=== PATIENT | female | born 1990 | race Caucasian/White ===

== ENCOUNTER → 2017-12-14 08:06 | Outpatient (CLI) | payer OTHER, SELFPAY ==
[2017-12-14 09:06] LABS: hCG Titer Quant., Serum 4843 mIU/mL (<9 non-preg)
== END ==
PROVIDERS: Visit Provider Obstetrics & Gynecology
DX: Z32.01 Encounter for pregnancy test, result positive (principal)
CPT/HCPCS: 36415; 84702

== ENCOUNTER → 2017-12-16 07:35 | Outpatient (CLI) | payer OTHER, SELFPAY ==
[2017-12-16 09:22] LABS: hCG Titer Quant., Serum 6056 mIU/mL (<9 non-preg)
== END ==
PROVIDERS: Visit Provider Obstetrics & Gynecology
DX: Z32.01 Encounter for pregnancy test, result positive (principal)
CPT/HCPCS: 36415; 84702

== ENCOUNTER → 2017-12-28 07:40 | Outpatient (CLI) | payer OTHER, SELFPAY ==
[2017-12-28 09:51] LABS: hCG Titer Quant., Serum 12905 mIU/mL (<9 non-preg)
== END ==
PROVIDERS: Visit Provider Obstetrics & Gynecology
DX: Z32.01 Encounter for pregnancy test, result positive (principal)
CPT/HCPCS: 36415; 84702

== ENCOUNTER → 2017-12-29 10:03 | Outpatient (CLI) | payer OTHER, SELFPAY ==
[2017-12-29 11:37] LABS: hCG Titer Quant., Serum 12860 mIU/mL (<9 non-preg)
== END ==
PROVIDERS: Visit Provider Obstetrics & Gynecology
DX: Z32.01 Encounter for pregnancy test, result positive (principal)
CPT/HCPCS: 36415; 84702

== ENCOUNTER → 2017-12-30 08:13 | Outpatient (CLI) | payer OTHER, SELFPAY ==
[2017-12-30 09:31] LABS: hCG Titer Quant., Serum 12703 mIU/mL (<9 non-preg)
== END ==
PROVIDERS: Visit Provider Obstetrics & Gynecology
DX: O20.0 Threatened abortion (principal); Z3A.00 Weeks of gestation of pregnancy not specified
CPT/HCPCS: 36415; 84702; 86850; 86900

== ENCOUNTER 2018-01-01 21:06 | Emergency (ER) | payer OTHER, SELFPAY ==
[2018-01-01 21:07] VITALS: BP 139/65; PULSE 72; RESP 17; TEMP 36.4; O2SAT 100; BMI 24.5
--- NOTE | 2018-01-01 22:29 | ED.RN ---
PT REPORTS TO THIS RN THAT SHE IS FEELING BETTER AND THE PAIN IS MUCH BETTER. THIS RN D/C PT IV AND COVERED SITE WITH 2X2 GAUZE DRESSING. MINIMAL BLEEDING NOTED. PT AMBULATORY HOME WITH SIGNIFICANT OTHER.
== END 2018-01-01 22:30 | disposition left against medical advice (07) ==
LOC: ED 22:31
PROVIDERS: Emergency Provider Emergency Medicine
DX: R69 Illness, unspecified (principal)
CPT/HCPCS: 99281

== ENCOUNTER → 2018-01-05 11:24 | Outpatient (CLI) | payer OTHER, SELFPAY ==
[2018-01-05 12:37] LABS: hCG Titer Quant., Serum 1417 mIU/mL (<9 non-preg)
== END ==
PROVIDERS: Visit Provider Obstetrics & Gynecology
DX: O02.1 Missed abortion (principal); Z3A.00 Weeks of gestation of pregnancy not specified
CPT/HCPCS: 36415; 84702

== ENCOUNTER → 2018-01-18 07:29 | Outpatient (CLI) | payer OTHER, SELFPAY ==
[2018-01-18 09:01] LABS: hCG Titer Quant., Serum 25 mIU/mL (<9 non-preg)
== END ==
PROVIDERS: Visit Provider Obstetrics & Gynecology
DX: O02.1 Missed abortion (principal); Z3A.00 Weeks of gestation of pregnancy not specified
CPT/HCPCS: 36415; 84702

== ENCOUNTER → 2018-01-30 07:04 | Outpatient (CLI) | payer OTHER, SELFPAY ==
--- NOTE | 2018-01-30 07:45 | MRI_ITS ---
STUDY: MRA OF THE HEAD WITHOUT CONTRAST REASON FOR EXAM: Female, 27 years old. Several episodes over the last 6 years of H/As, right face and arm numbness, speech disturbance and vision changes. TECHNIQUE: 3-D zzlk-iu-lnsxnj (TOF) imaging was performed with MIPs. The study was performed unenhanced. COMPARISON: None. FINDINGS: 2 Normal right cavernous carotid artery with a normal supraclinoid bifurcation. Normal left cavernous carotid artery with a normal supraclinoid bifurcation. Normal right A1 segments of the anterior cerebral artery. Normal left A1 segments of the anterior cerebral artery. Normal intact anterior communicating artery (ACOM). Normal bilateral A2 segments of the anterior cerebral arteries. Normal right M1 and M2 segments of the middle cerebral arteries, with a normal M1 bifurcation. Normal left M1 and M2 segments of the middle cerebral arteries, with a normal M1 bifurcation. Normal right posterior communicating artery (PCOM). Normal left posterior communicating artery (PCOM). Normal bilateral vertebral arteries. Normal basilar artery with a normal basilar bifurcation. The visualized bilateral superior cerebellar (SCA) arteries are normal. Normal bilateral P1, P2 and visualized P3 segments of the posterior cerebral arteries. There is no demonstrated aneurysm of the [place] of [place]. There is no major vessel occlusion or hemodynamically significant stenosis. There is no demonstrated abnormality of the visualized brain. MRI/MRA Head ONLY without Contrast IMPRESSION: Normal MRA of the head. Electronically Signed: Jere Tang DO at 9:15 EDT , Service support ,
--- NOTE | 2018-01-30 08:30 | MRI_ITS ---
STUDY: MRA NECK WITH AND WITHOUT CONTRAST REASON FOR EXAM: Female, 27 years old. Several episodes over the last 6 years of H/As, right face and arm numbness, speech disturbance and vision changes TECHNIQUE: 3-D rlxp-ij-tvvlzx (TOF) imaging was performed in an 1.5 T MRI scanner. 7 ml of Gadavist was administered for the contrast enhanced images. COMPARISON: None. FINDINGS: RIGHT CAROTID ARTERIES: Normal right common carotid artery (CCA). Normal right common carotid bulb. Normal origin of the right internal carotid (ICA) artery without a hemodynamically significant stenosis. Normal visualized cervical portion of the right internal carotid artery. Normal origin of the right external carotid artery (ECA). LEFT CAROTID ARTERIES: Normal left common carotid artery (CCA). Normal left common carotid bulb. Normal origin of the left internal carotid (ICA) artery without a hemodynamically significant stenosis. Normal visualized cervical portion of the left internal carotid artery. Normal origin of the left external carotid artery (ECA). VERTEBRAL ARTERIES: Normal antegrade flow within the bilateral vertebral artery without a hemodynamically significant stenosis. MRI/MRA Neck WITH and W/O Contrast IMPRESSION: Normal bilateral cervical carotid and vertebral arteries. Electronically Signed: Jere Tang DO at 9:16 EDT , Service support ,
--- NOTE | 2018-01-30 08:30 | MRI_ITS ---
STUDY: MRI BRAIN WITH AND WITHOUT CONTRAST REASON FOR EXAM: Female, 27 years old. Severe episodes of headaches over 6 years, right face and arm numbness, speech disturbance and vision changes. TECHNIQUE: Standardized multiplanar fat and water weighted pulse sequences were obtained. 7 ml of Gadavist contrast material was administered intravenously for the contrast portion of the examination. COMPARISON: None. FINDINGS: Normal size of the ventricles and extra-axial spaces for the patient's age. Normal white matter tracts of the supratentorial brain. There is no evidence for recent intracranial ischemia or other cause of cytotoxic edema on diffusion weighted imaging (DWI). Normal T2* images of the brain without demonstrated susceptibility artifact. There is no demonstrated hemosiderin stain. Normal bilateral basal ganglia. Normal thalami. There is no extra-axial fluid accumulation. Normal flow voids within the major intracranial circulation suggesting patency by spin echo criteria. Normal venous enhancement. There is no enhancing intra-axial or extra-axial abnormality. Normal sella turcica, pituitary gland, infundibular stalk, optic chiasm and hypothalamus. Normal tectal plate and pineal gland. Normal midbrain, simon and medulla. Normal cerebellum. Normal basal cisterns. Normal bilateral temporal bones. Normal bilateral internal auditory canals. No demonstrated orbital abnormality, within the constraints of a routine brain study. Normal visualized paranasal sinuses. Normal calvarium and skull base. Normal visualized soft tissue structures. Normal visualized upper cervical spine. MRI/Brain W/WO Contrast IMPRESSION: No evidence of acute intracranial bleed, mass or ischemia. Electronically Signed: Jere Tang DO at 9:13 EDT , Service support ,
== END ==
PROVIDERS: Visit Provider Psychiatry & Neurology Neurology
DX: R51 Headache (principal); R20.0 Anesthesia of skin; R47.9 Unspecified speech disturbances
CPT/HCPCS: 70544; 70549; 70553; A9585

== ENCOUNTER → 2018-04-29 10:36 | Outpatient (CLI) | payer OTHER, SELFPAY ==
[2018-04-29 11:38] LABS: Color, Urine Yellow (Yellow); Glucose, Dipstick Normal (Normal); Ketone-Dipstick Negative (Negative); Leukocyte Esterase-Dipstick 25 /ul (Negative); Nitrite-Dipstick Negative (Negative); Occult Blood-Urine Negative /ul (Negative); Protein-Dipstick Negative (Negative); Urine Bilirubin Dipstick Negative (Negative); Urine Clarity Sl. Cloudy (Clear); Urine Urobilinogen Normal (Normal)
== END ==
PROVIDERS: Visit Provider Obstetrics & Gynecology
DX: R35.0 Frequency of micturition (principal); R10.30 Lower abdominal pain, unspecified
CPT/HCPCS: 81002; 87086; 87088

== ENCOUNTER → 2018-10-18 12:03 | Outpatient (CLI) | payer OTHER, SELFPAY ==
[2018-10-18 13:10] LABS: Progesterone Level 19.99 ng/mL (See Comment)
== END ==
PROVIDERS: PCP Family Medicine; Referring Provider Obstetrics & Gynecology; Visit Provider Obstetrics & Gynecology
DX: Z32.01 Encounter for pregnancy test, result positive (principal); Z87.59 Personal history of other complications of pregnancy, childbirth and the puerperium
CPT/HCPCS: 36415; 84144

== ENCOUNTER 2019-06-25 23:35 | Inpatient (IN) | payer OTHER, SELFPAY ==
[2019-03-04 11:31] VITALS: BMI 25.0
[2019-06-25 23:38] VITALS: BMI 28.4
--- NOTE | 2019-06-25 23:40 | PCM.HP.OB ---
History Date of Admission: 06/25/19 Final FRANCHESKA: 06/29/19 Gestational age: 39 Weeks and 3 Days History of this : This is a 28 year-old, G [], P [], at weeks gestational age. Medical History: Medical History (Last Updated 06/25/19 @ 23:46 by Corona Lindquist) Palpitations (Chronic) R00.2 Dyspnea on exertion (Chronic) R06.09 Exercise-induced asthma (Chronic) J45.990 Anxiety F41.9 Surgical History: Surgical History (Last Updated 06/25/19 @ 23:46 by Corona Lindquist) H/O LEEP Z98.890 History of appendectomy Onset Date: ~2012 Z90.49 Allergies No Known Allergies Allergy (Verified 03/04/19 11:33) Home Medications: Home Medications albuterol sulfate HFA 90 mcg/actuation aerosol inhaler 2 puff INHALATION Q4H PRN #18 g 06/15/18 cetirizine 10 mg tablet 10 mg PO DAILY #120 tab 08/11/18 ascorbic acid (vitamin C) 500 mg tablet 500 mg PO DAILY 08/31/18 vitamin,calcium,wkuycrat-qstl-vxrdu acid tablet 1 tab PO DAILY 08/31/18 fluticasone 500 mcg-salmeterol 50 mcg/dose blistr powdr for inhalation 1 inh INHALATION BID #3 device 02/16/19 aspirin 81 mg tablet,delayed release 81 mg PO DAILY 03/04/19 Smoking Status: Never smoker Number of Fetus(es): 1 NST - FHR Rate Baby A Baseline: 145 Variability:: Moderate Accelerations:: 15 x 15 Uterine Activity:: Q 2-3 minutes History Past Pregnancies: Past Pregnancies Delivery Date Name GA/Weeks Outcome Route Weight Infant Gender Labor Length Anesthesia Delivery Location Provider FOB Labs: See [facility] H&P Physical Exam General: Alert, Oriented x3 Abdomen: Soft, Non Tender, Non-Distended, Gravid Neurological: Cranial nerves II-XII grossly intact LEAD NEURODIAGNOSTIC TECHNOLOGIST: Normal external genitalia Estimated gestational size: Appropriate for gestational size Presentation: Cephalic Cervix Dilation (cm): 3 Station: -2 Effacement (%): 70 Assessment/Plan This is a 28 year-old, G2, P0010, at 39&3 weeks gestational age. Admit to L&D. Pain - epidural as desired. GBS negative. EFW less than 4500g, patient with adequate pelvis. Needs MMR PP.
[2019-06-25] MEDS: Lactated Ringers 500 ML 999 ML IV (23:45)
[2019-06-26 00:06] LABS: Absolute Neutrophil Count 7.9 X10^3/uL (2.0-7.7); Basophil# 0.03 X10^3/uL; Basophil% 0.3 % (0-1); Eosinophil# 0.07 X10^3/uL; Eosinophils% 0.6 % (0-5); Hemoglobin 11.4 g/dL (12.0-15.0); Lymphocyte % 22.4 % (19-41); Mean Corp Hgb Conc 33.5 g/dL (32-36); Mean Corpuscular Hgb 27.7 pg (27.0-32.0); Mean Corpuscular Volume 82.7 fL (81-99); Mean Platelet Vol. 10.8 fl (6.2-12.0); Monocyte# 0.95 X10^3/uL; Monocyte% 8.2 % (0-10); NRBC Flagged by Analyzer 0 % (0-5); Neutrophil # 7.92 X10^3/uL (2.7-7.7); Neutrophil % 68.2 % (47-70); Platelet Count 197 K/mm3 (150-450); RBC Distribution Width CV 13.8 % (11.6-14.6); RBC Distribution Width SD 41.6 fl (35.1-43.9); Red Blood Count 4.11 M/mm3 (4.2-5.4); White Blood Count 11.6 K/mm3 (4.4-11.0)
[2019-06-26] MEDS: Lactated Ringers 1,000 ML 50 ML IV ×3 (00:15→08:34)
[2019-06-26] MEDS: Lactated Ringers 500 ML 999 ML IV (02:40)
[2019-06-26] MEDS: fentaNYL-bupivacaine (epidural) 100 ML BAG EPIDURAL ×2 (07:18→11:17)
[2019-06-26] MEDS: Oxytocin 30 units/NS 500 ml 30 UNITS/500 ML IV.SOLN IV (10:50)
[2019-06-26] MEDS: Ondansetron 4 MG/2 ML Vial IV (12:53)
[2019-06-26] MEDS: Lactated Ringers 1,000 ML 200 ML IV (13:43)
[2019-06-26] MEDS: Oxytocin 30 units/NS 500 ml 30 UNITS/500 ML IV.SOLN 334 UNITS IV (18:50)
--- NOTE | 2019-06-26 19:14 | PCM.OPRPT ---
Vaginal Delivery Maternal Presentation: Active Labor Amniotic Membrane Rupture Type: Artificial Amniotic Fluid Description: Clear Final FRANCHESKA: 06/29/19 Gestational age: 39 Weeks and 4 Days Date of Procedure: 06/26/19 Pre-Operative Diagnosis: Labor Post-Operative Diagnosis: Labor Surgery/ Procedure Performed: Spontaneous Vaginal Delivery Type of Anesthesia: Epidural, Local with 1% lidocaine Description of Procedure: Patient prepped & draped in stirrups when C/C/+2. She pushed to deliver head. head gently guided to allow delivery of anterior & posterior shoulders. No excess traction placed on head. Body delivered and placed on maternal abdomen. 3VC clamped & cut in delayed fashion. Placenta delivered with gentle traction. Good uterine tone obtained. Presentation: KIARA Placental Delivery Description: Expressed Placenta Disposition: [facility] Cord Vessel Description: 3 Vessels Cord Entanglement: Around neck x 1, loose - more aournd body Estimated Blood Loss: 300ml Infant A gender: Female - Marley Dangelo (1 minute): 8 (5 minute): 9 Episiotomy Description: None Laceration: 1st degree - left vaginal - repaired with 3-0 vicryl Medications given after delivery: IV Pitocin
[2019-06-26] MEDS: Ibuprofen 600 MG Tablet PO (20:38)
[2019-06-26 21:30] VITALS: BP 117/58; PULSE 108; RESP 18; TEMP 36.2
[2019-06-27] VITALS (7 sets, daily range): BP systolic 92–115; BP diastolic 47–74; PULSE 70–88; RESP 16; TEMP 36.1–36.7; O2SAT 97–98
--- NOTE | 2019-06-27 09:48 | PCM.PN.OB ---
Subjective: Pain well controlled. Average lochia. - Physical Exam General: Alert, Cooperative, No apparent distress Vital Signs Temp Pulse Resp BP 97.4 F L 83 16 100/52 L 06/27/19 04:26 06/27/19 04:26 06/27/19 04:26 06/27/19 04:26 Oxygen Delivery Method Room Air Weight: 84.878 kg Body Mass Index (BMI) 28.4 Intake and Output for Last 24 Hours 06/25/19 06/26/19 06/27/19 23:59 23:59 23:59 Intake Total 700 / 700 4427.95 / 4427.95 Output Total 800 / 800 Balance 700 / 700 3627.95 / 3627.95 Medical Necessity - Tobacco Use Smoking Status: Never smoker Assessment/Plan day #1 status post vaginal delivery. doing well. Patient would consider discharge home later today if okay with pediatrics.
--- NOTE | 2019-06-27 09:50 | DCINST_ITS ---
Discharge Diet: No Restrictions Discharge Activity: Return to Normal Activity, May not drive while taking narcotic pain medications., May Shower May resume sexual activity in: 4-6 weeks Additional Activity Instructions:: Nothing in the vagina for 4-6 weeks. You may return to work/school in 6 weeks. Call your doctor if your incision/area has: Continuous Slow Oozing, Sudden Increased Bleeding, Increased Pain/ Swelling, Increased Redness, Foul Smelling Discharge Additional Instructions: If you experience any of the following, contact your healthcare provider. * Bleeding that soaks a pad every hour for 2 hours * Fever 100.4 or higher * Unrelieved incision or abdominal pain * Swelling, redness, discharge or bleeding from your incision or episiotomy site * Your incision begins to separate * Problems urinating (including inability to urinate or burning while urinating). * Visual changes * Severe headache * Flu-like symptoms * Pain or redness in one of both of your breasts * Pain, warmth, tenderness or swelling in your legs, especially the calf area * Frequent nausea and vomiting * Symptoms of depression or anxiety If you experience any of the following, call 911 or go to the nearest Emergency Room. * Chest pain * Problems breathing * Seizure activity * Partial or complete paralysis of a body part, slurred speech, weakness or drooping of the face, or a sudden inability to walk or hold your balance Allergies/Adverse Reactions: Allergies cephalexin [From Keflex] Allergy (Verified 06/25/19 23:41) Unknown Penicillins Allergy (Verified 06/25/19 23:41) Unknown Medications to take at Discharge albuterol sulfate HFA 90 mcg/actuation aerosol inhaler 2 puff INHALATION Q4H PRN #18 g 06/15/18 cetirizine 10 mg tablet 10 mg PO DAILY #120 tab 08/11/18 ascorbic acid (vitamin C) 500 mg tablet 500 mg PO DAILY 08/31/18 vitamin,calcium,ctubnrmi-kcxj-ijmfp acid tablet 1 tab PO DAILY 08/31/18 fluticasone 500 mcg-salmeterol 50 mcg/dose blistr powdr for inhalation 1 inh INHALATION BID #3 device 02/16/19 Ibuprofen [Motrin] 600 mg PO Q6H PRN #60 tab 06/27/19 The following prescriptions were given: Ibuprofen [Motrin] 600 mg PO Q6H PRN #60 tab PRN Reason: Pain Transmission Status: Pending to [facility] Please Follow Up With: Corona Lindquist - [phone] When: Call to make an appointment with your doctor's office 1-2 and 6 weeks or as needed. Primary Care Physician: Ray Kendall MD [Primary Care Provider] - Test Results: Test results from this visit will be discussed in further detail at your follow- up appointment, if applicable.
[2019-06-28 01:30] VITALS: BP 110/75; PULSE 80; RESP 16; TEMP 36.2; O2SAT 96
--- NOTE | 2019-06-28 07:58 | PCM.PN.OB ---
Subjective: Denies complaints - Physical Exam General: Alert, Oriented x3 Abdomen: Soft, Non Tender, Non-Distended - ff mid & below umb Extremities: No Calf Tenderness Vital Signs Temp Pulse Resp BP Pulse Ox 97.2 F L 80 16 110/75 96 06/28/19 01:30 06/28/19 01:30 06/28/19 01:30 06/28/19 01:30 06/28/19 01:30 Oxygen Delivery Method Room Air Weight: 187 lb 2 oz Body Mass Index (BMI) 28.4 Intake and Output for Last 24 Hours 06/26/19 06/27/19 06/28/19 23:59 23:59 23:59 Intake Total 4427.95 / 4427.95 Output Total 800 / 800 Balance 3627.95 / 3627.95 Medical Necessity - Tobacco Use Smoking Status: Never smoker Assessment/Plan PPD#2 D/c home
[2019-06-28 09:55] VITALS: BP 108/78; PULSE 91; RESP 24; TEMP 36.2; O2SAT 98
== END 2019-06-28 12:05 | disposition home or self-care (01) | DRG 807 ==
LOC: WPOUT 23:37
PROVIDERS: Admitting Provider Obstetrics & Gynecology; PCP Family Medicine; Referring Provider Obstetrics & Gynecology; Visit Provider Obstetrics & Gynecology
DX: O69.81X0 Labor and delivery complicated by cord around neck, without compression, not applicable or unspecified (principal); Z37.0 Single live birth; Z3A.39 39 weeks gestation of pregnancy; O70.0 First degree perineal laceration during delivery
CPT/HCPCS: 59025; 59050; 85025; 86850; 86900; 86901; 99218; J7120; G0378; J2405

== ENCOUNTER → 2021-02-06 11:33 | Outpatient (CLI) | payer OTHER, SELFPAY ==
[2021-02-04 09:09] VITALS: BMI 23.2
[2021-02-06 11:48] LABS: Hematocrit 40.9 % (37-47); Hemoglobin 13.2 g/dL (12.0-15.0); Mean Corp Hgb Conc 32.3 g/dL (32-36); Mean Corpuscular Hgb 28.9 pg (27.0-32.0); Mean Corpuscular Volume 89.5 fL (81-99); Mean Platelet Vol. 9.5 fl (6.2-12.0); Platelet Count 221 K/mm3 (150-450); RBC Distribution Width CV 13.2 % (11.6-14.6); RBC Distribution Width SD 43.4 fl (35.1-43.9); Red Blood Count 4.57 M/mm3 (4.2-5.4); White Blood Count 6.9 K/mm3 (4.4-11.0)
[2021-02-06 12:14] LABS: AST(SGOT) 15 U/L (15-37); Alanine Aminotransfer ALT/SGPT 19 U/L (13-56); Albumin, Serum 3.7 g/dL (3.2-5.0); Alkaline Phosphatase 53 U/L (45-117); Anion Gap 3 (5-15); BUN 16 mg/dL (7-18); BUN/Creat Ratio 24.3 RATIO (10-20); Calcium,Total 8.7 mg/dL (8.5-10.1); Chloride 104 mmol/L (98-107); Creatinine, Serum 0.66 mg/dL (0.55-1.02); EST Glomerular Filtration Rate 113 mL/min (>60); Est Glom Filt Rate - Afr Amer 136 mL/min (>60); Globulin 3.6 g/dL (2.2-4.2); Glucose 88 mg/dL (74-106); Potassium 3.9 mmol/L (3.5-5.1); Protein, Total 7.3 g/dL (6.4-8.2); Sodium Level 135 mmol/L (136-145)
== END ==
PROVIDERS: PCP Nurse Practitioner Family; Referring Provider Psychiatry & Neurology Neurology; Visit Provider Psychiatry & Neurology Neurology
DX: G43.109 Migraine with aura, not intractable, without status migrainosus (principal)
CPT/HCPCS: 36415; 80053; 85027

== ENCOUNTER → 2021-02-28 06:28 | Outpatient (CLI) | payer OTHER, SELFPAY ==
[2021-02-04 09:09] VITALS: BMI 23.2
--- NOTE | 2021-02-28 06:29 | MRI_ITS ---
STUDY: MRI BRAIN WITH AND WITHOUT CONTRAST REASON FOR EXAM: Female, 30 years old. Migraine with aura TECHNIQUE: Standardized multiplanar fat and water weighted pulse sequences were obtained. 14ML IV DOTAREM was administered for the contrast portion of the examination. COMPARISON: 01/30/2018 FINDINGS: Normal size of the ventricles and extra-axial spaces for the patient''s age. Normal white matter tracts of the supratentorial brain. Normal bilateral basal ganglia. Normal thalami. There is no extra-axial fluid accumulation. There is no enhancing intra-axial or extra-axial abnormality. Normal sella turcica, pituitary gland, infundibular stalk, optic chiasm and hypothalamus. Normal tectal plate and pineal gland. Normal midbrain, ismon and medulla. Normal cerebellum. Normal basal cisterns. MRI/Brain W/WO Contrast IMPRESSION: Unremarkable unenhanced and enhanced MRI of the brain. Electronically Signed: Cam Hodge MD at 15:59 EDT Tel , Service support ,
== END ==
PROVIDERS: PCP Nurse Practitioner Family; Referring Provider Psychiatry & Neurology Neurology; Visit Provider Psychiatry & Neurology Neurology
DX: G43.109 Migraine with aura, not intractable, without status migrainosus (principal)
CPT/HCPCS: 70553; A9575

== ENCOUNTER 2021-08-13 10:43 | Emergency (ER) | payer OTHER, SELFPAY ==
[2021-08-13 10:44] VITALS: BP 147/83; PULSE 100; RESP 16; TEMP 36.4; O2SAT 100; BMI 23.6
--- NOTE | 2021-08-13 10:53 | EX.ED.UPPERE ---
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 She washed it right away. There was minimal bleeding. Patient is not known to have any communicable diseases. Source patient however is known. Patient otherwise has no complaints. [facility] Medical History (Updated 08/13/21 @ 10:[address] Candi Baird, DO) Anxiety Dyspnea on exertion Exercise-induced asthma Palpitations SOB (shortness of breath) Home Medications albuterol sulfate 90 mcg/actuation aerosol inhaler 1 puff INHALATION Q6H 09/24/19 [History Last Taken Unknown] multivitamin 1 tab PO DAILY 05/15/20 [History Last Taken Unknown] norgestimate 0.18 mg/0.215 mg/0.25 mg-ethinyl estradiol 25 mcg tablet 1 tablet PO DAILY tablet 02/04/21 [History Last Taken Unknown] fluticasone propionate 230 mcg-salmeterol 21 mcg/actuation HFA inhaler 2 puff INHALATION BID #12 g 02/07/21 [Rx Last Taken Unknown] rizatriptan 10 mg tablet 10 mg PO .COMPLEX #9 tab 04/29/21 [Rx Last Taken Unknown] Allergy/AdvReac Type Severity Reaction Status Date / Time Penicillins Allergy Unknown Verified 08/13/21 10:45 Family History Father Negative for coronary disease Mother Negative for coronary disease Surgical History H/O LEEP History of appendectomy (~2012) Social History Smoking Status: Never smoker Electronic Cigarette Use: not used second hand exposure: No alcohol intake: current alcohol intake frequency: holidays/special occasions only Alcohol type: beer substance use type: does not use ROS ROS ED Constitutional Constitutional ED: Reports systems reviewed and no addt'l complaints, except as documented; Denies body ache(s), change in weight or chills Eyes Eyes: Denies acute decrease in peripheral vision, change in vision, double vision or loss of vision ENT ENT ED: Reports none; Denies ear pain, lip swelling, loss taste/smell, neck pain, otalgia or sore throat Cardiovascular Cardiovascular: Reports none; Denies abdominal pain, chest pain with activity, leg edema, lightheadedness, palpitations, rapid heart rate or syncope Respiratory/Chest Respiratory/Chest: Reports none; Denies change in mental status, dry cough, dyspnea, hemoptysis, shortness of breath at rest or shortness of breath with exertion Gastrointestinal Gastrointestinal: Reports none; Denies abdominal pain, change in stool character, diarrhea, hematemesis, hematochezia, melena, rectal bleeding or vomiting Genitourinary Genitourinary ED: Reports none; Denies abdominal discomfort, anuria, dysuria, genital pain or polyuria Musculoskeletal Musculoskeletal: Reports none; Denies arthralgias, back pain, difficulty walking, extremity pain, muscle weakness or myalgias Integumentary Reports none and other Details: Abrasion to dorsum of left index finger ; Denies abscess or rash Neurologic Neurologic: Reports none; Denies abnormal gait, confusion, focal weakness, frequent falls, headache(s), loss of vision, numbness, paresthesias, radicular pain, vertigo or weakness Psychiatric Psychiatric: Reports systems reviewed and no addt'l complaints, except as documented and none; Denies behavioral changes, confusion, difficulty concentrating, hallucinations, suicidal ideation, tactile hallucinations or visual hallucinations Endocrine Endocrinology: Denies none, cold intolerance, excessive sweating, fatigue or heat intolerance Hematologic/Lymphatic Hematologic/Lymphatic: Reports none; Denies anemia, easy bleeding or easy bruising Allergic/Immunologic Allergic/Immunologic ED: Denies as per HPI, none, lip swelling, mouth swelling, throat swelling, tongue swelling or hives EXAM Physical Exam Const Vital Signs: 08/13/21 10:44 Temperature 97.5 F L Temperature Source Temporal Pulse Rate 100 Respiratory Rate 16 Blood Pressure 147/83 H Blood Pressure Mean 104 Pulse Ox 100 Oxygen Delivery Method Room Air Positive well nourished and well developed General Appearance ED: well developed and NAD HEENT Reports TM's clear and moist mucous membranes normocephalic and atraumatic; Negative for trauma or tenderness Tympanic Membrane ED: Yes TM's clear Eyes PERRL and EOMs intact bilaterally General Eye ED: Negative for pale conjunctiva or scleral icterus Neck no lymphadenopathy, supple and no JVD General: Negative for tenderness Chest Wall inspection of chest normal and palpation of chest normal Chest: Negative for tenderness Resp normal respiratory effort and clear to auscultation bilaterally Effort and Inspection: Negative for respiratory distress or pain with movement Auscultation: Negative for rhonchi, wheezes or diminished lung sounds Cardio regular rate, regular rhythm, S1 normal heart sound, S2 normal heart sound and no murmurs Peripheral Pulses: pulses 2+ throughout GI normal to inspection, nondistended, normoactive bowel sounds, soft to palpation, non-tender, non-distended and no masses Back/Spine no CVA tenderness and no thoracic nor lumbar tenderness Extremity normal to inspection General Extremety ED: Negative for edema General Extremity: Negative for edema Neuro oriented x3, CN's II-XII intact bilaterally, no sensory deficits noted and gait normal Sensorium / Orientation: awake, alert, oriented to person, oriented to place and oriented to time Motor Exam: strength 5/5 throughout and strength abnormal Psych mental status grossly normal Skin no rashes or lesions noted and no wounds Skin Narrative: Patient has a punctate superficial abrasion over the dorsum of the DIP joint with no active bleeding. Neurovascularly intact distally. MDM MDM MDM Narrative Medical decision making narrative: Patient will have exposures labs performed. I feel she is low risk for any communicable infection. She is comfortable without any prophylactic HIV therapy. Patient will follow up with corporate care. She is advised to return if increasing pain, redness, swelling, purulent drainage, or condition should worsen anyway. Discharge Plan Triage Chief Complaint: Occup Expose ED Provider: Candi Baird Dx/Rx/DC Orders Clinical Impression: Accidental needlestick injury with exposure to body fluid Instructions: ED NEEDLE STICK Health Care Worker Prescriptions: No Action multivitamin Tablet 1 tab PO DAILY RF: 0 albuterol sulfate [ProAir HFA] 90 mcg/actuation HFA aerosol inhaler 1 puff INHALATION Q6H RF: 0 norgestimate-ethinyl estradiol 0.18/0.215/0.25 mg-25 mcg tablet 1 tablet PO DAILY RF: 0 rizatriptan 10 mg tablet 10 mg PO .COMPLEX Qty: 9 RF: 4 Advair HFA 230-21 mcg/actuation HFA aerosol inhaler 2 puff INHALATION BID Qty: 12 RF: 3 Primary Care Provider: Payton Mayer NP Referrals: [facility] [GROUP OF PHYSICIANS] - 3-5 Days Payton Mayer NP, ASTRONAUTICAL ENGINEER-C [Primary Care Provider] - Disposition Disposition: Home, Self Care
[2021-08-13 11:53] VITALS: RESP 18
[2021-08-13 12:55] LABS: HIV - WCH Non-Reactive (Nonreactive); Hepatitis B Surface Antibody Reactive; Hepatitis B Surface Antigen Non-Reactive (Nonreactive); Hepatitis C Antibody Non-Reactive (Nonreactive)
== END 2021-08-13 11:55 | disposition home or self-care (01) ==
LOC: ED 11:18
PROVIDERS: Emergency Provider Emergency Medicine; PCP Nurse Practitioner Family
DX: S61.231A Puncture wound without foreign body of left index finger without damage to nail, initial encounter (principal); Z77.21 Contact with and (suspected) exposure to potentially hazardous body fluids; W46.0XXA Contact with hypodermic needle, initial encounter; Y93.9 Activity, unspecified; Y92.9 Unspecified place or not applicable; F41.9 Anxiety disorder, unspecified; J45.990 Exercise induced bronchospasm; Z79.899 Other long term (current) drug therapy
CPT/HCPCS: 36415; 86703; 86706; 86803; 87340; 99282

== ENCOUNTER 2021-10-17 09:52 | Outpatient (CLI) | payer OTHER, SELFPAY ==
[2021-10-17 10:02] VITALS: BP 132/85; PULSE 91; RESP 16; TEMP 36.8; O2SAT 100; BMI 23.6
[2021-10-17] MEDS: 0.9% Saline Lock 10 ML Syringe IV (10:04)
[2021-10-17 10:38] VITALS: BP 114/73; PULSE 89; RESP 16; TEMP 37.4; O2SAT 100
[2021-10-17 11:33] VITALS: BP 113/79; PULSE 93; RESP 16; TEMP 37.2; O2SAT 100
== END 2021-10-17 11:36 | disposition home or self-care (01) ==
LOC: MS3OUT 09:52 → MS3 09:52
PROVIDERS: PCP Nurse Practitioner Family; Referring Provider Nurse Practitioner Adult Health; Visit Provider Nurse Practitioner Adult Health
DX: Z23 Encounter for immunization (principal); U07.1 COVID-19
CPT/HCPCS: J7050; M0245; Q0245; A4216

== ENCOUNTER 2021-10-23 08:29 | Outpatient (CLI) | payer OTHER, SELFPAY | END 2021-10-23 23:59 | disposition short-term general hospital (02) | LOC: LABSPEC 08:30 | PROVIDERS: PCP Nurse Practitioner Family; Visit Provider Physician Assistant | DX: Z11.52 Encounter for screening for COVID-19 (principal) | CPT/HCPCS: 87635; U0003; U0005 ==

== ENCOUNTER 2023-10-30 05:52 | Day surgery (SDC) | payer OTHER, SELFPAY ==
--- NOTE | 2023-10-30 | FALS_PTH ---
PATHOLOGY RESULTS PATIENT: NANNETTE FUENTES LOC: [facility] [place] U#:[id number] AGE/SX: 33/F ROOM: RE10/30/[address]: Dr. Karen Aguilera MD : 1990 BED: DIS: 10/30/2023 SPEC #: [id number] RECD: 10/30/23 09:32 STATUS: ELIJAH RENidhi #: [id number] GILDARDO: 10/30/23 00:[address]: Karen Aguilera DEPT: SURGICAL PATHOLOGY RECD BY: Emmett Crabtree ENTERED: 10/30/23 09:33 SP TYPE: FALL TUBES OTHR DR: MARIE Roper Tissues: Fallopian tube Procedures: Surgery Specimen Level II HEADER OPERATION: Laparoscopic salpingectomy PRE-OP DIAGNOSIS: Sterilization TISSUE SUBMITTED: Bilateral fallopian tubes MICROSCOPIC DIAGNOSIS Bilateral fallopian tubes, salpingectomy: Bilateral fallopian tubes, no pathologic diagnosis. CHIDI:ryan 11/02/2023 MICROSCOPIC DESCRIPTION Slides are reviewed. GROSS DESCRIPTION Received in fixative is one container labeled with the patient's name and designated bilateral fallopian tubes. The specimen consists of bilateral fallopian tubes including fimbrial ends measuring 5.0 cm in length and 0.5 cm in diameter. The fallopian tubes are not identified as right or left. Sections reveal unremarkable cut surfaces. Oyster Grower sections are submitted in two cassettes with each cassette containing one fallopian tube. / CHIDI:ryan 10/30/23 TC: CPT: 29439 x2
--- OUTSIDE RECORDS SUMMARY | 2023-10-30 05:56 | XMS RPT_ITS | CCD ---
Author Name Unknown Address [address] [place] [address] Organization [facility] Care Team Providers Care Clinical Trials Manager Name Role Phone David Sloan Unavailable MD Lawrence, Nickolas Collado Unavailable García HERNANDO, Mis Bermeo Unavailable Rosy MONROY, Jes Rasmussen Unavailable Unavaila ble Inocencio, Giovany Primary Care Provider Unavaila ble Inocencio DEBEADER.MANAGER DECISION SUPPORT, Giovany Primary Care Provider Inocencio DEBEADER.MANAGER DECISION SUPPORT, Giovany Primary Care Provider Inocencio DEBEADER.MANAGER DECISION SUPPORT, Giovany Primary Care Provider Inocencio, Giovany Primary Care Provider [phone] SILVER, SCOTT Attending Unavailable INOCENCIO, GIOVANY Primary Care Unavailable SILVER, SCOTT Attending Unavailable INOCENCIO, GIOVANY Primary Care Unavailable SILVER, SCOTT Admitting Unavailable SILVER, SCOTT Attending Unavailable INOCENCIO, GIOVANY Primary Care Unavailable SILVER, SCOTT Attending Unavailable INOCENCIO, GIOVANY Primary Care Unavailable INOCENCIO, GIOVANY Primary Care Unavailable INOCENCIO, GIOVANY Attending Unavailable INOCENCIO, GIOVANY Primary Care Unavailable INOCENCIO, GIOVANY Referring Unavailable INOCENCIO, GIOVANY Primary Care Unavailable MALORIE HOOPER Attending Unavailable INOCENCIO, GIOVANY Referring Unavailable STEPHANIA EID Attending Unavailable INOCENCIO, GIOVANY Primary Care Unavailable MALORIE HOOPER Attending Unavailable INOCENCIO, GIOVANY Referring Unavailable INOCENCIO, GIOVANY Primary Care Unavailable INOCENCIO, GIOVANY Attending Unavailable INOCENCIO, GIOVANY Primary Care Unavailable CONSUELO RIOS Attending Unavailable INOCNECIO, GIOVANY Primary Care Unavailable SANDI GRIDER Attending Unavailable SELF Referring Unavailable INOCENCIO, GIOVANY Primary Care Unavailable INOCENCIO, GIOVANY Attending Unavailable INOCENCIO, GIOVANY Primary Care Unavailable SANDI GRIDER Referring Unavailable INOCENCIO, GIOVANY Primary Care Unavailable QUEENER, MALORIE Referring Unavailable AMADEO LOPEZ Attending Unavailable INOCENCIO, GIOVANY Primary Care Unavailable AMADEO LOPEZ Attending Unavailable QUEENER, MALORIE Referring Unavailable INOCENCIO, GIOVANY Primary Care Unavailable AMADEO LOPEZ Attending Unavailable QUEENER, MALORIE Referring Unavailable INOCENCIO, GIOVANY Primary Care Unavailable ER, MALORIE Referring Unavailable SANDI GRIDER Attending Unavailable INOCENCIO, GIOVANY Primary Care Unavailable INOCENCIO, GIOVANY Primary Care Unavailable CONSUELO RIOS Attending Unavailable Allergies Allergy Classification Reported Allergen(s) Allergy Type Date of Onset Reaction(s) Facility (8 sources) cephalexin Drug Allergy 11-18-2014 [facility] Work Phone: (4 sources) NKDA drug allergy 08-04-2016 [facility] Work Phone: (17 sources) Cephalexin; Translations: [CEPHALEXIN] Drug Allergy 01-27-2014 [facility] Work Phone: (6 sources) Penicillins; Translations: [PENICILLINS] Drug Allergy 01-27-2014 [facility] Work Phone: (11 sources) Penicillins Drug Allergy 01-27-2014 [facility] Work Phone: Medications Current Medications Medication Drug Class(es) Dates Sig (Normalized) Sig (Original) acetaminophen 500 mg oral tablet (5 sources) Start: 05-28-2023 End: 06-27-2023 take 1 tablet by mouth every six hours as needed for pain acetaminophen (Tylenol Extra Strength) 500 MG tablet Take 1 tablet (500 mg) by mouth every 6 hours as needed for mild pain (1-3). 30 tablet 0 05/28/2023 06/27/2023 Active Completed/Discontinued Medications Medication Drug Class(es) Dates Sig (Normalized) Sig (Original) [id number] 200 actuat albuterol 0.09 mg/actuat metered dose inhaler (20 sources) beta2-Adrenergic Agonist Start: 02-05-2023 albuterol 108 (90 Base) MCG/ACT inhaler Problems Active Problems Problem Classification Problem Date Documented Date Episodic/Chronic Anxiety disorders (10 sources) Anxiety; Translations: [Other specified anxiety disorders] Onset: 12-05-2022 Chronic Asthma (20 sources) Exercise-induced asthma; Translations: [Exercise induced bronchospasm] Onset: 11-13-2020 11-13-2020 Chronic Headache; including migraine (2 sources) Hemiplegic migraine; 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, not intractable, without status migrainosus] Chronic Headache; including migraine (5 sources) Cervicogenic headache; Translations: [Cervicogenic headache] Onset: 09-28-2023 Episodic Malaise and fatigue (1 source) Fatigue; Translations: [Other fatigue] Episodic Miscellaneous mental health disorders (20 sources) Mental disorder; Translations: [Mental disorder, not otherwise specified] Onset: 11-13-2020 11-13-2020 Chronic Nonmalignant breast conditions (8 sources) Lump in upper inner quadrant of left breast; Translations: [Unspecified lump in the left breast, upper inner quadrant] Onset: 05-20-2023 Episodic Other aftercare (3 sources) Postoperative visit; Translations: [Encounter for other specified surgical aftercare] Onset: 06-03-2023 06-03-2023 Episodic Other congenital anomalies (7 sources) Bat ear; 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] Onset: 05-20-2023 05-20-2023 Chronic Other congenital anomalies (2 sources) Prominent ear; 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] Onset: 05-20-2023 Chronic Other skin disorders (1 source) Loss of hair; Translations: [Nonscarring hair loss, unspecified] Episodic Other upper respiratory disease (1 source) Seasonal allergy; Translations: [Other seasonal allergic rhinitis] 06-16-2023 Chronic Other upper respiratory infections (11 sources) Acute laryngitis; Translations: [Acute laryngitis] Onset: 02-09-2017 02-09-2017 Episodic Unclassified (2 sources) History of loop electrosurgical excision procedure; Translations: [History of cervical LEEP biopsy affecting care of mother, antepartum] Onset: 11-11-2018 11-13-2020 Unclassified (2 sources) Post-op; Translations: [Post-op] Onset: 06-03-2023 Unclassified (2 sources) Surgical Consult; Translations: [Surgical Consult] Onset: 05-06-2023 Past or Other Problems Problem Classification Problem Date Documented Date Episodic/Chronic Anxiety disorders (5 sources) Feeling irritable; Translations: [Irritability and anger] Onset: 12-05-2022 Episodic Cardiac dysrhythmias (8 sources) Palpitations; Translations: [Palpitations] Onset: 11-18-2014 Resolved: 11-20-2014 11-20-2014 Episodic Conditions associated with dizziness or vertigo (14 sources) Dizziness; Translations: [Dizziness and giddiness] Onset: 11-18-2014 07-30-2016 Episodic Contraceptive and procreative management (2 sources) Oral contraception; Translations: [Encounter for surveillance of contraceptive pills] Onset: 01-16-2023 Episodic Immunizations and screening for infectious disease (2 sources) Requires vaccination; Translations: [Encounter for immunization] Onset: 01-16-2023 Episodic Nonspecific chest pain (10 sources) Precordial pain; Translations: [Precordial pain] Onset: 08-04-2016 08-04-2016 Episodic Other complications of (15 sources) History of loop electrosurgical excision procedure; Translations: [Maternal care for other abnormalities of cervix, unspecified trimester] Onset: 11-11-2018 11-11-2018 Episodic Other lower respiratory disease (4 sources) Dyspnea; Translations: [Shortness of breath] Onset: 06-18-2017 06-18-2017 Episodic Other lower respiratory disease (6 sources) Dyspnea on exertion; Translations: [Other forms of dyspnea] Onset: 06-18-2017 11-13-2020 Episodic Other screening for suspected conditions (not mental disorders or infectious disease) (12 sources) Patient encounter status; Translations: [Encounter for screening for other suspected endocrine disorder] Onset: 12-05-2022 Episodic Residual codes; unclassified (20 sources) Personal history of other specified conditions; Translations: [History of palpitations] Onset: 11-04-2018 11-13-2020 Episodic Residual codes; unclassified (20 sources) FH: Congenital anomaly; Translations: [Family history of other congenital malformations, deformations and chromosomal abnormalities] Onset: 11-09-2018 11-13-2020 Episodic Residual codes; unclassified (19 sources) History of clinical finding in subject; Translations: [Personal history of other specified conditions] Onset: 11-04-2018 11-04-2018 Episodic Screening and history of mental health and substance abuse codes (19 sources) H/O: anxiety state; Translations: [Personal history of other mental and behavioral disorders] Onset: 11-04-2018 11-04-2018 Episodic Unclassified (2 sources) Patient requested procedure; Translations: [Patient request for diagnostic testing] Onset: 11-04-2018 Resolved: 12-13-2020 11-13-2020 Varicose veins of lower extremity (7 sources) Venous varices; Translations: [Varicose veins of right lower extremity with other complications] Onset: 09-17-2020 09-17-2020 Episodic Results Test Name Value Interpretation Reference Range Facil ity Vital Signs Date Time Vital Sign Value Performing Clinician Facility 06-16-2023 14:55-0400 Body weight 71.67 kg Sandi Grider MD Work Phone: [facility] 06-16-2023 14:55-0400 Diastolic blood pressure 78 mm[Hg] Sandi Grider MD Work Phone: [facility] 06-16-2023 14:55-0400 Heart rate 74 /min Sandi Grider MD Work Phone: [facility] 06-16-2023 14:55-0400 Respiratory rate 17 /min Sandi Grider MD Work Phone: [facility] 06-16-2023 14:55-0400 SaO2% (BldA) [Mass fraction] 98 % Sandi Grider MD Work Phone: [facility] 06-16-2023 14:55-0400 Systolic blood pressure 104 mm[Hg] Sandi Grider MD Work Phone: [facility] 06-03-2023 13:28-0400 Diastolic blood pressure 82 mm[Hg] Scott Masters MD Work Phone: [facility] 06-03-2023 13:28-0400 Heart rate 80 /min Scott Masters MD Work Phone: [facility] 06-03-2023 13:28-0400 Systolic blood pressure 122 mm[Hg] Scott Masters MD Work Phone: [facility] 05-28-2023 18:00-0400 Body temperature 97 [degF] Scott Masters MD Work Phone: [facility] 05-28-2023 18:00-0400 Diastolic blood pressure 69 mm[Hg] Scott Masters MD Work Phone: [facility] 05-28-2023 18:00-0400 Heart rate 64 /min Scott Masters MD Work Phone: [facility] 05-28-2023 18:00-0400 Respiratory rate 16 /min Scott Masters MD Work Phone: [facility] 05-28-2023 18:00-0400 SaO2% (BldA) [Mass fraction] 95 % Scott Masters MD Work Phone: [facility] 05-28-2023 18:00-0400 Systolic blood pressure 106 mm[Hg] Scott Masters MD Work Phone: [facility] 05-28-2023 09:55-0400 Body height 174 cm Scott Masters MD Work Phone: [facility] 05-28-2023 09:55-0400 Body mass index (BMI) [Ratio] 23.82 kg/m2 Scott Masters MD Work Phone: [facility] 05-28-2023 09:55-0400 Body weight 72.12 kg Scott Masters MD Work Phone: [facility] 05-19-2023 09:52-0400 Body weight 73.03 kg Malorie Hooper PA-C Work Phone: [facility] 05-19-2023 09:52-0400 Diastolic blood pressure 74 mm[Hg] Malorie Hooper PA-C Work Phone: [facility] 05-19-2023 09:52-0400 Heart rate 76 /min Malorie Hooper PA-C Work Phone: [facility] 05-19-2023 09:52-0400 Respiratory rate 16 /min Malorie Hooper PA-C Work Phone: [facility] 05-19-2023 09:52-0400 SaO2% (BldA) [Mass fraction] 99 % Malorie Hooper PA-C Work Phone: [facility] 05-19-2023 09:52-0400 Systolic blood pressure 108 mm[Hg] Malorie Hooper PA-C Work Phone: [facility] 05-06-2023 13:13-0400 Body height 172.7 cm Scott Masters MD Work Phone: [facility] 05-06-2023 13:13-0400 Body mass index (BMI) [Ratio] 24.02 kg/m2 Scott Masters MD Work Phone: [facility] 05-06-2023 13:13-0400 Body weight 71.67 kg Scott Masters MD Work Phone: [facility] 05-06-2023 13:13-0400 Diastolic blood pressure 74 mm[Hg] Scott Masters MD Work Phone: [facility] 05-06-2023 13:13-0400 Heart rate 82 /min Scott Masters MD Work Phone: [facility] 05-06-2023 13:13-0400 Systolic blood pressure 116 mm[Hg] Scott Masters MD Work Phone: [facility] 01-16-2023 15:59-0400 Body height 173.5 cm Stephania Birnamwood DEBEADER.MANAGER DECISION SUPPORT Work Phone: [facility] 01-16-2023 15:59-0400 Body weight 67.59 kg Stephania Stanton DEBEADER.MANAGER DECISION SUPPORT Work Phone: [facility] 01-16-2023 15:59-0400 Diastolic blood pressure 80 mm[Hg] Stephania Stanton DEBEADER.MANAGER DECISION SUPPORT Work Phone: [facility] 01-16-2023 15:59-0400 Systolic blood pressure 108 mm[Hg] Stephania Stanton DEBEADER.MANAGER DECISION SUPPORT Work Phone: [facility] 12-09-2022 14:42-0500 Body temperature 97.5 [degF] Malorie Queener PA-C Work Phone: [facility] 12-09-2022 14:42-0500 Body weight 67.41 kg Malorie Queener PA-C Work Phone: [facility] 12-09-2022 14:42-0500 Diastolic blood pressure 81 mm[Hg] Malorie Queener PA-C Work Phone: [facility] 12-09-2022 14:42-0500 Heart rate 65 /min Malorie Queener PA-C Work Phone: [facility] 12-09-2022 14:42-0500 Respiratory rate 16 /min Malorie Queener PA-C Work Phone: [facility] 12-09-2022 14:42-0500 SaO2% (BldA) [Mass fraction] 99 % Malorie Queener PA-C Work Phone: [facility] 12-09-2022 14:42-0500 Systolic blood pressure 118 mm[Hg] Malorie Queener PA-C Work Phone: [facility] 04-16-2022 16:44-0400 Body height 172.5 cm Giovany Inocencio DEBEADER.MANAGER DECISION SUPPORT Work Phone: [facility] 04-16-2022 16:44-0400 Body weight 70.13 kg Giovany Inocencio DEBEADER.MANAGER DECISION SUPPORT Work Phone: [facility] 04-16-2022 16:44-0400 Diastolic blood pressure 78 mm[Hg] Giovany Inocencio DEBEADER.MANAGER DECISION SUPPORT Work Phone: [facility] 04-16-2022 16:44-0400 Heart rate 76 /min Giovany Inocencio DEBEADER.MANAGER DECISION SUPPORT Work Phone: [facility] 04-16-2022 16:44-0400 SaO2% (BldA) [Mass fraction] 98 % Giovany Inocencio DEBEADER.MANAGER DECISION SUPPORT Work Phone: [facility] 04-16-2022 16:44-0400 Systolic blood pressure 110 mm[Hg] Giovany Inocencio DEBEADER.MANAGER DECISION SUPPORT Work Phone: [facility] 02-10-2022 14:31-0400 Body weight 68.67 kg Stephania Birnamwood DEBEADER.MANAGER DECISION SUPPORT Work Phone: [facility] 02-10-2022 14:31-0400 Diastolic blood pressure 60 mm[Hg] Stephania Birnamwood DEBEADER.MANAGER DECISION SUPPORT Work Phone: [facility] 02-10-2022 14:31-0400 Systolic blood pressure 110 mm[Hg] Stephania Birnamwood DEBEADER.MANAGER DECISION SUPPORT Work Phone: [facility] 12-14-2020 12:15-0500 Body Temperature 97.9 [degF] Sanjiv ALONZOA Work Phone: 12-14-2020 12:15-0500 BP Diastolic 81 mm[Hg] Sanjiv ALONZOA Work Phone: 12-14-2020 12:15-0500 BP Systolic 109 mm[Hg] Sanjiv ALONZOA Work Phone: 12-14-2020 12:15-0500 Pulse (Heart Rate) 72 /min Sanjiv ALONZOA Work Phone: 12-14-2020 12:15-0500 Pulse Oximetry 100 % Sanjiv ALONZOA Work Phone: 12-14-2020 12:15-0500 Respiratory Rate 13 /min Sanjiv ALONZOA Work Phone: 12-14-2020 09:27-0500 BMI (Body Mass Index) 24.12 kg/m2 Sanjiv CRAWFORD Work Phone: 12-14-2020 09:27-0500 Body weight 73.03 kg Sanjiv CRAWFORD Work Phone: 12-14-2020 09:27-0500 Height 174 cm Sanjiv CRAWFORD Work Phone: 12-07-2020 15:05-0500 BMI (Body Mass Index) 24.12 kg/m2 Sanjiv CRAWFORD Work Phone: 12-07-2020 15:05-0500 Body Temperature 99.19 [degF] Sanjiv CRAWFORD Work Phone: 12-07-2020 15:05-0500 Body weight 73.03 kg Sanjiv CRAWFORD Work Phone: 12-07-2020 15:05-0500 BP Diastolic 75 mm[Hg] Sanjiv CRAWFORD Work Phone: 12-07-2020 15:05-0500 BP Systolic 113 mm[Hg] Sanjiv CRAWFORD Work Phone: 12-07-2020 15:05-0500 Height 174 cm Sanjiv CRAWFORD Work Phone: 12-07-2020 15:05-0500 Pulse (Heart Rate) 85 /min Sanjiv CRAWFORD Work Phone: 12-07-2020 15:05-0500 Pulse Oximetry 96 % Sanjiv CRAWFORD Work Phone: 12-07-2020 15:05-0500 Respiratory Rate 20 /min Sanjiv CRAWFORD Work Phone: 09-01-2017 14:34-0500 BMI (Body Mass Index) 24.02 kg/m2 Nickolas Bravo MD [facility] Work Phone: 09-01-2017 14:34-0500 BP Diastolic 76 mm[Hg] Nickolas Bravo MD [facility] Work Phone: 09-01-2017 14:34-0500 BP Systolic 112 mm[Hg] Nickolas Bravo MD [facility] Work Phone: 09-01-2017 14:34-0500 Height 172.72 cm Nickolas Bravo MD [facility] Work Phone: 09-01-2017 14:34-0500 Pulse (Heart Rate) 80 /min Nickolas Bravo MD [facility] Work Phone: 09-01-2017 14:34-0500 Respiratory Rate 16 /min Nickolas Bravo MD [facility] Work Phone: 09-01-2017 14:34-0500 Weight 71.67 kg Nickolas Bravo MD [facility] Work Phone: 02-09-2017 08:17-0400 BMI (Body Mass Index) 23.11 kg/m2 Jes Gallegos CONTRACTS INTERN [facility] Work Phone: 02-09-2017 08:17-0400 Body Temperature 98.1 [degF] Jes Gallegos CONTRACTS INTERN [facility] Work Phone: 02-09-2017 08:17-0400 BP Diastolic 81 mm[Hg] Jes Gallegos CONTRACTS INTERN [facility] Work Phone: 02-09-2017 08:17-0400 BP Systolic 119 mm[Hg] Jes Gallegos CONTRACTS INTERN [facility] Work Phone: 02-09-2017 08:17-0400 Height 172.72 cm Jes Gallegos CONTRACTS INTERN [facility] Work Phone: 02-09-2017 08:17-0400 Pulse (Heart Rate) 76 /min Jes Gallegos CONTRACTS INTERN [facility] Work Phone: 02-09-2017 08:17-0400 Respiratory Rate 18 /min Jes Gallegos CONTRACTS INTERN [facility] Work Phone: 02-09-2017 08:17-0400 Weight 68.95 kg Jes Gallegos LPN [facility] Work Phone: 09-15-2016 11:10-0500 BSA (Body Surface Area) 1.83 m2 Jes Gallegos LPN [facility] Work Phone: 12-19-2014 10:41-0500 BP Diastolic 70 mm[Hg] Jes Gallegos LPN [facility] Work Phone: 12-19-2014 10:41-0500 BP Systolic 102 mm[Hg] Jes Gallegos LPN [facility] Work Phone: Encounters Encounter Date Encounter Type Care Provider Facility Start: 10-28-2023 End: 10-28-2023 ambulatory GIOVANY MAYER Facility:[facility] Start: 10-20-2023 End: 10-20-2023 ambulatory AMADEO LOPEZ Facility:[facility] Start: 10-16-2023 End: 10-16-2023 ambulatory AMADEO LOPEZ Facility:[facility] Start: 09-28-2023 End: 09-28-2023 ambulatory MALORIE HOOPER Facility:[facility] Start: 09-28-2023 End: 09-28-2023 ambulatory Amadeo Lopez PT Work Phone: [facility] Procedures Date Procedure Procedure Detail Performing Clinician Start: 05-28-2023 End: 05-28-2023 Otoplasty protruding ear w/wo size rdctj Scott Masters MD Work Phone: Start: 05-28-2023 Urine test visual color cmprsn vahids Ousmane Morgan DO Work Phone: Start: 04-14-2022 Adult depression scr eening assessment Giovany Mayer DEBEADER.MANAGER DECISION SUPPORT Work Phone: Start: 03-12-2022 Us breast uni real t tyrone with image limited Stephania Birnamwood DEBEADER.MANAGER DECISION SUPPORT Work Phone: Start: 03-12-2022 Digital breast tomos ynthesis bilateral Stephania Stanton DEBEADER.MANAGER DECISION SUPPORT Work Phone: Start: 12-14-2020 OPERATIVE REPORT 3m Sca nning Start: 12-14-2020 Urine test visual color cmprsn zaira Morgan Work Phone: Start: 12-07-2020 Basic metabolic pane l calcium total Brendon Taazi Work Phone: Start: 12-07-2020 Blood count complete automated Brendon Taazi Work Phone: Start: 09-01-2017 End: 09-01-2017 KUNAL Bravo MD Work Phone: Start: 09-01-2017 End: 09-01-2017 Follow Up Appt 1 year Robert Pierce Work Phone: Start: 09-15-2016 End: 09-15-2016 KUNAL Bravo MD Work Phone: Start: 09-15-2016 End: 09-15-2016 Follow Up Appt 1 year Robert Pierce Work Phone: Start: 08-04-2016 End: 08-08-2016 *Hepatic Function Panel Nickolas Bravo MD Work Phone: Start: 08-04-2016 End: 08-04-2016 KUNAL Bravo MD Work Phone: Start: 08-04-2016 End: 08-07-2016 Echocardiography Nickolas Bravo MD Work Phone: Start: 08-04-2016 End: 08-04-2016 Follow Up Appt 1 month Nickolas Bravo MD Work Phone: Start: 08-04-2016 End: 08-08-2016 Lipid 1996 panel - Serum or Plasma Nickolas Bravo MD Work Phone: Start: 08-04-2016 End: 08-13-2016 Stress Echocardiogram (treadmill) Nickolas Bravo MD Work Phone: Start: 12-19-2014 End: 12-19-2014 KUNAL Bravo MD Work Phone: Start: 12-19-2014 End: 12-19-2014 Follow Up Appt 6 months Nickolas Bravo MD Work Phone: Start: 11-20-2014 End: 11-20-2014 KUNAL Bravo MD Work Phone: Start: 11-20-2014 End: 12-01-2014 Echocardiography Nickolas Bravo MD Work Phone: Start: 11-20-2014 End: 11-20-2014 Follow Up Appt 1 month Nickolas Bravo MD Work Phone: Plan of Treatment Date Care Activity Detail Author Start: 2041 Zoster Vaccines (1 of 2) Zoste r Vaccines (1 of 2) [facility] Start: 2033 PAP TESTING PAP TESTING [facility] Start: 04-19-2029 DTaP/Tdap/Td vaccine (2 - Td) DTaP/Tdap/Td vaccine (2 - Td) 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 AND REPAIRER VIJAY DISEASE VISIT ANNUAL PCP TEAM CHRONIC DISEASE VISIT [facility] Start: 01-09-2024 ANNUAL PCP TEAM MOLD STAMPER AND REPAIRER VIJAY DISEASE VISIT ANNUAL PCP TEAM CHRONIC DISEASE VISIT [facility] Start: 12-04-2023 HEPATITIS C SCREENING HEPATITIS C [facility] Immunizations Immunization Date Immunization Notes Care Provider Wendy navarrete 07-22-2023 influenza virus vacc ine, unspecified formulation Amadeo Lopez PT Work Phone: [facility] 01-16-2023 Human Papillomavirus 9-valent vaccine Stephania Eid APRN.MANAGER DECISION SUPPORT Work Phone: [facility] 01-16-2023 HPV, unspecified formulation Scott Masters MD Work Phone: [facility] 08-18-2022 influenza virus vacc ine, unspecified formulation Giovany Mayer APRN.CNP Work Phone: [facility] 08-09-2019 influenza virus vacc ine, unspecified formulation [facility] Work Phone: 06-28-2019 measles, mumps and rubella virus vaccine [facility] 04-19-2019 tetanus toxoid, redu uri diphtheria toxoid, and acellular pertussis vaccine, adsorbed [facility] Work Phone: 07-16-2018 influenza virus vacc ine, unspecified formulation [facility] Work Phone: 07-24-2017 influenza virus vacc ine, unspecified formulation [facility] Work Phone: 08-04-2016 influenza virus vacc ine, unspecified formulation [facility] Work Phone: 10-08-2015 varicella virus vaccine [facility]iv [facility] Work Phone: 10-04-2015 influenza virus vacc ine, unspecified formulation [facility] Work Phone: 07-05-2014 influenza virus vacc ine, unspecified formulation [facility] Work Phone: 09-12-2013 influenza virus vacc ine, unspecified formulation [facility] Payers Date Payer Category Payer [employer] ( and others) [facility] [id number] 2023-Present [address] [place] [address] [facility] [employer] [id number] 2021 [employer] ( and others) [id number] 2021 [employer] ( and others) [id number] 2018 [employer] ( and others) [facility] [id number] 2018-Present [address] [place] [address] [phone] [id number] 2017 Unknown [facility] [id number] 2017-Present [phone] [address] [place] [address] Indemnity [id number] 2017 Unknown [id number] Social History Date Type Detail Facility Start: 12-07-2020 End: 12-09-2022 Tobacco smoking status NHIS Never smoker [facility] Start: 12-07-2020 End: 12-09-2022 Tobacco use and exposure Never used [employer] Work Phone: Start: 12-07-2020 End: 10-07-2022 Alcohol intake Current drinker of alcohol (finding) [employer] Work Phone: Start: 09-17-2020 Alcohol Comment occasional [employer] Work Phone: Sex Assigned At Not on file [employer] Work Phone: Start: 01-31-2022 End: 05-28-2023 Exposure to SARS-CoV-2 (event) Not sure [employer] Work Phone: Start: 12-19-2021 End: 09-02-2023 Alcohol intake Ex-drinker (finding) [facility] Start: 08-21-2020 End: 12-04-2022 History SDOH Alcohol Frequency 2 [facility] Start: 08-21-2020 End: 12-04-2022 History SDOH Alcohol Std Drinks 1 [facility] Start: 05-01-2020 End: 12-04-2022 History SDOH Social Connections Gnosticist 3 [facility] Start: 05-01-2020 End: 12-04-2022 History SDOH Physical Activity DPW 5 [facility] Start: 05-01-2020 End: 12-04-2022 History SDOH Physical Activity MPS 6 [facility] Start: 05-01-2020 Education 15 [facility] Start: 1990 Sex Assigned At Female [facility] Start: 04-15-2022 End: 12-04-2022 History SDOH Physical Activity DPW 4 [facility] Start: 12-04-2022 History SDOH Alcohol Std Drinks 0 [facility] Start: 12-04-2022 End: 05-19-2023 History of Social function [facility] Start: 12-04-2022 End: 05-19-2023 Social connection and isolation panel [facility] Do you belong to any clubs or organizations such as gnosticist groups, unions, fraternal or athletic groups, or school groups? Yes [facility] Are you now , , , , never or living with a partner? [facility] How often to you hav e a drink containing alcohol? Monthly or less [facility] How many standard dr inks containing alcohol do you have on a typical day? Patient does not drink [facility] How often do you hav e 6 or more drinks on 1 occasion? Never [facility] Do you feel stress - tense, restless, nervous, or anxious, or unable to sleep at night because your mind is troubled all the time - these days [OSQ] Rather much [facility] (I/We) worried wheth er (my/our) food would run out before (I/we) got money to buy more. Never true [facility] In the past 12 month s, was there a time when you were not able to pay the mortgage or rent on time? No [facility] Start: 02-01-2019 Gender identity Identifies as female gender (finding) [facility] Start: 02-01-2019 Sexual orientation Heterosexual (finding) [facility] Clinical Notes 11-04-2018 to 10-20-2023 Amadeo Lopez, PT - 09/28/2023 12:26 PM Amadeo Ribera, PT - 09/28/2023 11:45 AM ESTTelephone Encounter - Crystal Romano LPN - 07/13/2023 2:57 PM EDTDischarge InstructionsPatient Instructions Note Date & Type Note Facility 10-20-2023 Note HNO ID: [id number] Author: Amadeo Lopez PT Service: ? Author Type: Physical Therapist Type: Progress Notes Filed: 10/20/2023 9:44 AM Note Text: Episode Visit Count: 3 Therapist That Will Accept/Oversee The Plan Of Care: Amadeo Lopez PT. Start of Care Date: 09/28/23 Onset Date: (Migraines started in 2011.) Patient Identified by Name and Date of : Yes REHABILITATION AND SPORTS THERAPY PHYSICAL THERAPY TREATMENT NOTE ASSESSMENT: Jes Fuentes tolerated the session with no issues. She demonstrated improvements in thoracic mobility and reduced head symptoms w/ traction. The patient will continue to benefit from ongoing skilled physical therapy to progress toward set goals. PLAN FOR NEXT VISIT: Progress scapular strengthening; DN as needed. SUBJECTIVE: Pt reports great relief from DN to R UT; states slight soreness overall however states she is currently pain-free in RUT AND R periscap area. Pain: Pain Pain Level: 0 Pain Location: Neck Post Treatment Pain Post Treatment Pain Level: No Change Post Treatment Pain Location: Neck OBJECTIVE MEASURES WITH LEVEL OF FUNCTION: Light tenderness in Cervical Paraspinals (R>L). TREATMENT: Therapeutic Exercise: 1: Quadruped T/S Rotation: 1x15 each. 2: BTB Arrows: 2x15. 3: *Open the french T/S Mobility: 1x15 ea. 4: Tall Kneeling Lower Trap BTB Raises: 2x10. 5: Tall Kneeling BTB Resisted Horz. ABD: 2x10. Skilled Intervention: Patient was educated in proper exercise technique and purpose for exercises. Reviewed and educated patient on additions/changes for home exercise program as above (*). Skilled judgment was used in selection of appropriate interventions. Correct performance of therapeutic exercises was facilitated with verbal, visual, and tactile cuing. Manual Therapy: 1: STM AND CF to B C/S Paraspinals. 2: Manual Cervical Traction: Pull to tolerance. Skilled Intervention: Manual skills to improve joint mobility, ROM, and decrease pain. Utilized anatomy knowledge of the therapist, and assessment of patient's response to intervention. Billing Therapeutic Exercise Treatment Minutes: 28 Manual TherapyTreatment Minutes: 14 Skilled Treatment Time Minutes (timed and untimed codes): 42 Total Session Time (minutes): 42 Session Start Time : 901 Session Stop Time : 943 Amadeo Lopez PT [facility] 10-16-2023 Note HNO ID: [id number] Author: Amadeo Lopez, PT Service: ? Author Type: Physical Therapist Type: Progress Notes Filed: 10/16/2023 8:20 AM Note Text: Episode Visit Count: 2 Therapist That Will Accept/Oversee The Plan Of Care: Amadeo Lopez PT. Start of Care Date: 09/28/23 Onset Date: (Migraines started in 2011.) Patient Identified by Name and Date of : Yes REHABILITATION AND SPORTS THERAPY PHYSICAL THERAPY TREATMENT NOTE ASSESSMENT: Jes Fuentes tolerated the session with decreased symptoms and expected muscle soreness. She demonstrated reduction in her headache and improved flexibility of the RUT following DN. Patient had appropriate soreness following DN in involved area. The patient will continue to benefit from ongoing skilled physical therapy to progress toward set goals. PLAN FOR NEXT VISIT: Assess response to DN; IaSTM as needed; possible DN to C/S paraspinals or rhomboid; scapular strengthening. SUBJECTIVE: Pt. reports she was pretty sore following first session; states MARTINEZ in posterior neck that wraps up the head; notes constant pain in R shoulder blade area. Notes massage chair at gym seems to help everything out. Pain: Pain Pain Level: 4 Pain Location: Neck Description: Pressure Frequency: Intermittent Post Treatment Pain Post Treatment Pain Level: Better Post Treatment Pain Location: Neck - Right (Headache is better.) OBJECTIVE MEASURES WITH LEVEL OF FUNCTION: Trigger points throughout RUT - DN produced Localized Twitch Response and referral pain pattern. TREATMENT: Therapeutic Exercise: 1: *RUE Prone A: 1x15, 3#. 2: *RUE Prone T: 1x15, 3#. 3: *Quadruped T/S Rotation to R: 1x10. 4: *BTB Arrows: 1x10. 5: *BTB Rows: 1x10. 6: R UT Stretch: 2x30 . 7: *Educated patient on stretch/mobilityactivation exercises to complete tonight following DN session. Skilled Intervention: Patient was educated in proper exercise technique and purpose for exercises. Reviewed and educated patient on additions/changes for home exercise program as above (*). Skilled judgment was used in selection of appropriate interventions. Provided written instruction for home exercise program to facilitate proper performance and compliance. Correct performance of therapeutic exercises was facilitated with verbal, visual, and tactile cuing. Patient education as noted. Manual Therapy: 1: IaSTM to R UT AND R Rhomboids: Push to tolerance. 2: *Patient education on purpose, precautions, safety, and risks regarding dry needling. Dry Needling: (2) 40 mm needle R UT with pistoning and fanning (pt consent gained, 2 needles in, 2 needles out) Skilled Intervention: Manual skills to improve joint mobility, ROM, and decrease pain. Utilized anatomy knowledge of the therapist, and assessment of patient's response to intervention. Billing Therapeutic Exercise Treatment Minutes: 30 Manual TherapyTreatment Minutes: 16 Skilled Treatment Time Minutes (timed and untimed codes): 46 Total Session Time (minutes): 46 Session Start Time : 656 Session Stop Time : 742 Amadeo Lopez PT [facility] 09-28-2023 Note HNO ID: [id number] Author: Amadeo Lopez PT Service: ? Author Type: Physical Therapist Type: Progress Notes Filed: 09/28/2023 2:07 PM Note Text: Episode Visit Count: 1 Therapist That Will Accept/Oversee The Plan Of Care: Amadeo Lopez PT. Start of Care Date: 09/28/23 Onset Date: (Migraines started in 2011.) Patient Identified by Name and Date of : Yes REHABILITATION AND SPORTS THERAPY PHYSICAL THERAPY EVALUATION PLAN OF CARE: Assessment: Jes Fuentes presents with diagnosis of Bilateral Tension HAs that interferes with (Independance in exercise; occupational demands; neck AND shoulder movements; sleeping.) . She presents with impairments in ADL's, independence in exercise, joint mobility, overall function, posture, range of motion, strength, symptom management, and tissue tenderness. PROMIS? (Patient-Reported Outcomes Measurement Information System) scores were reviewed and self efficacy domain identified as a rehabilitation concern. Prognosis for therapy is Good due to: current objective clinical presentation, good overall health status, within-session changes, good support system/ coping skills .She will benefit from skilled therapy services to meet the goals established for this plan of care as noted below. Goals for Episode of Care: created on 09/28/23 through 11/09/23 [place] in home exercise program. 2. Patient will decrease pain rating by 2 points to meet minimal clinical important difference for numeric pain rating scale. 3. Patient will demonstrate increase in Andrés Scapular strength to 5/5 during manual muscle testing in order to improve function for leisure / recreation skills, prior functional tasks, and work tasks. 4. Restore pain free cervical ROM to WNL to allow for improved QOL. 5. Exercise and complete Occupational Demands with no aggravation of pain/symptoms. 6. Sleep throughout the night without pain/symptoms. 7. Patient will report decreased MARTINEZ frequency/severity/duration as well as less reliance on OTC medication for MARTINEZ reduction. Patient Goals: Education on HAs; learn exercises to help reduce [id number]. Planned Interventions, Frequency, and Duration: Current Frequency: 1x/week Duration: 5 weeks Total Number of Visits Planned: 5 Planned Treatment Interventions: Therapeutic exercise (93622), Neuromuscular re-education (80256), Manual therapy (43029), Therapeutic activities (04098), Self-mcc management (93671), Patient/Family/Caregiver Education, Body Mechanics Training PLAN FOR NEXT VISIT: Assess how HEP went; DN to R UT and possible C/S paraspinals PRN; thoracic mobility and scapular strength. Patient demonstrates good understanding of plan of care and treatment. The above goals and plan of care were discussed and agreed upon by patient/family. SUBJECTIVE: Patient reports to PT for tension HAs; notes regular gym going and states core exercises and neck + shoulder movements can cause her HAs - HAs start in the posterior neck and wrap over the head and stays in the forehead; tylenol or ibuprofen can completely reduce the tension HAs; also notes she can wake up with a MARTINEZ from sleep position or HAs develop at work. Notices a lot of tension and stiffness in the B shoulders and posterior neck. Topicals seem to kind of help, notes frequency about 3-5x a week for headaches. Notes Tension HAs can get up to 7/10 NPRS. History of migraines. Patient Goals: Education on HAs; learn exercises to help reduce itkfzcnll-tdylqmzi-kfgjtjui. 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 Recreation / Current Exercise: Resistance Training 5-6x a week. Intake Information: Prescription present Previous Treatment: NSAIDs Spine History Symptoms Location at Onset: Neck, Headache Symptoms Since Onset: Unchanging Sleep Affected by Pain: Pain keeps from falling asleep, Pain awakens Pain: Pain Pain Level: 3 Pain Location: Neck Description: Pressure Frequency: Intermittent Post Treatment Pain Post Treatment Pain Level: No Change Post Treatment Pain Location: Neck Post Treatment Symptoms: Cervical Extension SNAG felt good for the patient. PROMIS Scales Higher is Better 09/26/2023 Phys Func - Score 49 (within normal limits) Phys Func - Percentile 46% Self-Eff Symptom - Score 43 (Average) Self-Eff Symptom - Percentile 24% T-scores: mean of general population = 50. 5 points is clinically meaningfully difference Percentiles provide an indication of how the patient's score ranks in relation to the general population. Higher percentile rankings indicate better function/quality of life. 50th percentile is the average of the general population and indicates doe (more content not included)... [facility] 09-28-2023 History of Present illness Narrative Program_ID:[id number] Access Code: [email or web address] URL: [email or web address] Date: 09-28-2023 Prepared By: Amadeo Lopez Program Notes Exercises - Seated Upper Trapezius Stretch - 1-2 x daily - 5-7 x weekly - 2 sets - reps - Seated Levator Scapulae Stretch - 1-2 x daily - 5-7 x weekly - 2 sets - reps - Seated Assisted Cervical Rotation with Towel - 1-2 x daily - 7 x weekly - 1-2 sets - 10 reps - Seated Assisted Cervical Rotation with Towel - 1-2 x daily - 7 x weekly - 1-2 sets - 10 reps - Cervical Extension AROM with Strap - 1-2 x daily - 7 x weekly - 1-2 sets - 10 reps - Standing Lower Cervical and Upper Thoracic Stretch - 1-2 x daily - 5-7 x weekly - 2 sets - reps Episode Visit Count: 1 Therapist That Will Accept/Oversee The Plan Of Care: Amadeo Lopez PT. Start of Care Date: 09/28/23 Onset Date: (Migraines started in 2011.) Patient Identified by Name and Date of : Yes REHABILITATION AND SPORTS THERAPY PHYSICAL THERAPY EVALUATION PLAN OF CARE: Assessment: Jes Fuentes presents with diagnosis of Bilateral Tension HAs that interferes with (Independance in exercise; occupational demands; neck & shoulder movements; sleeping.) . She presents with impairments in ADL's, independence in exercise, joint mobility, overall function, posture, range of motion, strength, symptom management, and tissue tenderness. PROMIS (Patient-Reported Outcomes Measurement Information System) scores were reviewed and self efficacy domain identified as a rehabilitation concern. Prognosis for therapy is Good due to: current objective clinical presentation, good overall health status, within-session changes, good support system/ coping skills .She will benefit from skilled therapy services to meet the goals established for this plan of care as noted below. Goals for Episode of Care: created on 09/28/23 through 11/09/23 [place] in home exercise program. 2. Patient will decrease pain rating by 2 points to meet minimal clinical important difference for numeric pain rating scale. 3. Patient will demonstrate increase in Andrés Scapular strength to 5/5 during manual muscle testing in order to improve function for leisure / recreation skills, prior functional tasks, and work tasks. 4. Restore pain free cervical ROM to WNL to allow for improved QOL. 5. Exercise and complete Occupational Demands with no aggravation of pain/symptoms. 6. Sleep throughout the night without pain/symptoms. 7. Patient will report decreased MARTINEZ frequency/severity/duration as well as less reliance on OTC medication for MARTINEZ reduction. Patient Goals: Education on HAs; learn exercises to help reduce xqtwhxufg-xzkozbsp-eaqgpner. Planned Interventions, Frequency, and Duration: Current Frequency: 1x/week Duration: 5 weeks Total Number of Visits Planned: 5 Planned Treatment Interventions: Therapeutic exercise (35544), Neuromuscular re-education (41349), Manual therapy (07729), Therapeutic activities (91385), Self-mcc management (08006), Patient/Family/Caregiver Education, Body Mechanics Training PLAN FOR NEXT VISIT: Assess how HEP went; DN to R UT and possible C/S paraspinals PRN; thoracic mobility and scapular strength. Patient demonstrates good understanding of plan of care and treatment. The above goals and plan of care were discussed and agreed upon by patient/family. SUBJECTIVE: Patient reports to PT for tension HAs; notes regular gym going and states core exercises and neck + shoulder movements can cause her HAs - HAs start in the posterior neck and wrap over the head and stays in the forehead; tylenol or ibuprofen can completely reduce the tension HAs; also notes she can wake up with a MARTINEZ from sleep position or HAs develop at work. Notices a lot of tension and stiffness in the B shoulders and posterior neck. Topicals seem to kind of help, notes frequency about 3-5x a week for headaches. Notes Tension HAs can get up to 7/10 NPRS. History of migraines. Patient Goals: Education on HAs; learn exercises to help reduce fhpbumaum-abfoocxl-nnlykjgv. 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 Recreation / Current Exercise: Resistance Training 5-6x a week. Intake Information: Prescription present Previous Treatment: NSAIDs Spine History Symptoms Location at Onset: Neck, Headache Symptoms Since Onset: Unchanging Sleep Affected by Pain: Pain keeps from falling asleep, Pain awakens Pain: Pain Pain Level: 3 Pain Location: Neck Description: Pressure Frequency: Intermittent Post Treatment Pain Post Treatment Pain Level: No Change Post Treatment Pain Location: Neck Post Treatment Symptoms: Cervical Extension SNAG felt good for the patient. PROMIS Scales Higher is Better 09/26/2023 Phys Func - Score 49 (within normal limits) Phys Func - Percentile 46% Self-Eff Symptom - Score 43 (Average) Self-Eff Symptom - Percentile 24% T-scores: mean of general population = 50. 5 points is clinically meaningfully difference Percentiles provide an indication of how the patient's score ranks in relation to the general population. Higher percentile rankings indicate better function/quality of life. 50th percentile is the average of the general population and indicates half of respondents had a worse score. OBJECTIVE MEASURES WITH LEVEL OF FUNCTION: Posture / Alignment Posture: Forward head, Rounded shoulders Spine Observations R Cervical Spine Palpation Tenderness: Upper trapezius, Levator scapulae, Paraspinals L Cervical Spine Palpation Tenderness: Upper trapezius, Levator scapulae, Paraspinals R Thoracic Spine Palpation Tenderness: Spinous Process, Rhomboid L Thoracic Spine Palpation Tenderness: Spinous Process, Rhomboid Cervical Spine ROM Cervical ROM : Limitation AROM Cervical Flexion AROM: End range pain (Stiffness/pain felt in posterior neck.) Cervical Extension AROM: Normal Cervical Side-Bend Right AROM: Normal Cervical Side-Bend Left AROM: End range pain Cervical Rotation Right AROM: Normal Cervical Rotation Left AROM: End range pain Thoracic Spine AROM Thoracic Flexion: Normal Thoracic Extension: Minimal limitation Thoracic Sidebend Right: Minimal limitation Thoracic Sidebend Left: Minimal limitation Thoracic Rotation Right: Minimal limitation Thoracic Rotation Left: Minimal limitation UE AROM R UE AROM: Grossly WNL L UE AROM: Grossly WNL Spine Joint Mobility Joint Mobility Comment: Cervical Spine WNL. UE and Cervical Strength R UE Strength: Grossly 5/5 w/o no asymmetrical myotome weakness; 4+/5 scapular muscles. L UE Strength: Grossly 5/5 w/o no asymmetrical myotome weakness; 4+/5 scapular muscles. Special Tests - Cervical Cervical Special Tests: Cervical Compression, Cervical Distraction Cervical Distraction: Negative Education: Education Learning/educational needs: Home exercise program, Plan of Care, Posture TREATMENT: PT Treatment Interventions: Therapeutic Exercise, Self-[facility] Management Evaluation Therapeutic Exercise: 1: *B UT Stretch: 2x30 each. 2: *B Levator Scap: 2x30 ea. 3: *Rhomboid Stretch: 2x30 . 4: *C/S SNAG Extension: 1x10, 1-2 hold. 5: *C/S ROT SNAx10, 1-2 hold, ea way. 6: Supine Chin Tucks: 1x10. Skilled Intervention: Patient was educated in proper exercise technique and purpose for exercises. Reviewed and educated patient on additions/changes for home exercise program as above (*). Skilled judgment was used in selection of appropriate interventions. Provided written instruction for home exercise program to facilitate proper performance and compliance. Correct performance of therapeutic exercises was facilitated with verbal, visual, and tactile cuing. Self-[facility] Management: 1: *Education on current objective & exam findings related to her pain and chief complaints. Education on tissue restrictions, and myofascial pain/trigger points/taut bands with [employer] Myofascial Pain and Dysfunction: The Trigger Point Manual. Rationale for dry needling provided to patient and handout provided. 2: *Discussed therapy goals, POC, posture, importance of home exercises in conjunction with manual therapy. Skilled Intervention: Skilled judgment in the selection of proper modification for activity of daily living/home management based on clinical presentation, deficits, and needs. Reviewed patient specific diagnosis in relation to activities of daily living/home management. Activity progression based on professional judgement. Billing * Evaluation Low Complexity: 1 Unit Therapeutic Exercise Treatment Minutes: 14 Self-Care/Home Management Treatment Minutes: 12 Skilled Treatment Time Minutes (timed and untimed codes): 45 Total Session Time (minutes): 45 Session Start Time : 1145 Session Stop Time : 1230 Amadeo Lopez PT documented in this encounter [facility] 09-02-2023 Note HNO ID: [id number] Author: Consuelo Rios MD Service: ? Author Type: Physician Type: Progress Notes Filed: 09/02/2023 12:23 PM Note Text: Jes Fuentes is a 33 year old female who presents for problem visit for contraception consult HPI: 33 YOF does not desire future child bearing. Does not like hormones. Tried IUD and had frequent bleeding and cramping. 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 History Comments: Sexual Activity: Yes; Male Contraception: Pill PAST MEDICAL HISTORY Diagnosis Date Abnormal Pap smear of cervix Anxiety Asthma Eczema PAST SURGICAL HISTORY Procedure Laterality Date LAPAROSCOPIC APPENDECTOMY 01/30/2014 LEEP PROCEDURE ([facility])_*FL OTOPLASTY VEIN SURGERY (SPECIFY LOCATION) HX 12/14/2020 right leg FAMILY HISTORY Problem Relation Age of Onset Hypertension Mother other (sleep apnea) Mother Asthma Father No Known Problems Maternal Grandmother Cancer Maternal Grandfather Asthma Paternal Grandmother Heart Paternal Grandmother CHF Asthma Paternal Grandfather Heart Paternal Grandfather CHF Cancer Paternal Aunt endometrial- 50's Colon Cancer Paternal cousin 40 Aneurysm Paternal cousin aortic Social History Tobacco Use Smoking status: Never Smokeless tobacco: Never Vaping Use Vaping Use: Never used Substance Use Topics Alcohol use: Not Currently Drug use: No Current Outpatient Medications Medication Sig predniSONE (DELTASONE) 20 mg tablet Take two daily for 5 days. Norgestimate-Ethinyl Estradiol 0.18/0.215/0.25 mg-25 mcg Take 1 tablet by mouth once daily. Take active pills only. Start a new pack every 3 weeks. albuterol HFA (PROAIR HFA) 90 mcg/actuation inhaler Inhale 2 Puffs as instructed every 6 hours as needed. DULoxetine (CYMBALTA) 20 mg capsule Take 1 capsule by mouth once daily. Cholecalciferol-Soy Isoflavone 2,000-64 unit-mg tab Take 1 tablet by mouth once daily. vitamin B complex (B COMPLEX 1 ORAL) Take 1 tablet by mouth once daily. ascorbic acid (VITAMIN C ORAL) Take 1 tablet by mouth once daily. MULTIVITAMIN ORAL Take 1 tablet by mouth once daily. BIOTIN ORAL Take 1 tablet by mouth once daily. rimegepant (NURTEC ODT) 75 mg disintegrating tablet Take 1 tablet by mouth once daily as needed. fluticasone-salmeterol HFA (ADVAIR) 230-21 mcg/actuation inhaler Inhale 2 Puffs as instructed twice daily. No current facility-administered medications for this visit. Allergies As of Date: 09/02/2023 (No Known Allergies) Fully Assessed 06/16/2023 Allergies and current medication updated:Yes EXAM: BP 118/74 Wt 163 lb (73.9kg) LMP 08/16/2023 GENERAL: pleasant, female in no apparent distress ASSESSMENT AND PLAN: 33-year-old female who desires permanent sterilization. Risk benefits and alternatives to various contraceptive options were reviewed with the patient, her questions were answered to her satisfaction and she would like to proceed with a bilateral laparoscopic salpingectomy. We will continue with control pills until that time. Risks, benefits and alternatives to sterilization have been discussed with the patient. She declines reversible options including LARC. She understands sterilization is permanent, irreversible, risks of failure, regret and ectopic. In addition she understands there are surgical risks as well. Her questions were answered to her satisfaction. Consuelo Rios MD [facility] 09-02-2023 Note HNO ID: [id number] Author: Consuelo Rios MD Service: ? Author Type: Physician Type: Progress Notes Filed: 09/02/2023 12:23 PM Note Text: m [facility] 08-07-2023 Note HNO ID: [id number] Author: Sandi Grider MD Service: ? Author Type: Physician Type: Progress Notes Filed: 08/07/2023 8:50 AM Note Text: . [facility] [place] Note Patient name: Jes Fuentes PCP: Giovany Mayer APRN.MANAGER DECISION SUPPORT CC: MAGALIS HPI: Jes Fuentes 33 year old female non-smoker with PMH significant for exercise-induced asthma, anxiety disorder, eczema. Current therapy consists of Advair HFA which she uses regularly during allergy season and as needed albuterol. She presents for acute visit. She states she was doing well until approximately 1 week ago when she developed typical upper respiratory infectious symptoms with nasal congestion, facial pressure and rhinorrhea. No fevers or chills. Went on to develop upper chest congestion, discomfort in her upper airway, shortness of breath, wheezing, moist cough without ability to expectorate phlegm. Foul tasting phlegm. Symptoms interfering with her sleep. With the onset of her symptoms, she had not restarted her Advair HFA and has not been using her albuterol. PAST MEDICAL HISTORY Diagnosis Date Abnormal Pap smear of cervix Anxiety Asthma Eczema ALLERGIES No Known Allergies predniSONE (DELTASONE) 20 mg tablet Take two daily for 5 days. doxycycline hyclate (VIBRAMYCIN) 100 mg capsule Take 1 capsule by mouth two times a day for 10 days. Norgestimate-Ethinyl Estradiol 0.18/0.215/0.25 mg-25 mcg Take 1 tablet by mouth once daily. Take active pills only. Start a new pack every 3 weeks. albuterol HFA (PROAIR HFA) 90 mcg/actuation inhaler Inhale 2 Puffs as instructed every 6 hours as needed. DULoxetine (CYMBALTA) 20 mg capsule Take 1 capsule by mouth once daily. Cholecalciferol-Soy Isoflavone 2,000-64 unit-mg tab Take 1 tablet by mouth once daily. vitamin B complex (B COMPLEX 1 ORAL) Take 1 tablet by mouth once daily. ascorbic acid (VITAMIN C ORAL) Take 1 tablet by mouth once daily. MULTIVITAMIN ORAL Take 1 tablet by mouth once daily. BIOTIN ORAL Take 1 tablet by mouth once daily. rimegepant (NURTEC ODT) 75 mg disintegrating tablet Take 1 tablet by mouth once daily as needed. fluticasone-salmeterol HFA (ADVAIR) 230-21 mcg/actuation inhaler Inhale 2 Puffs as instructed twice daily. Social History Tobacco Use Smoking status: Never Smokeless tobacco: Never Vaping Use Vaping Use: Never used Substance Use Topics Alcohol use: Not Currently Drug use: No FAMILY HISTORY Problem Relation Age of Onset Hypertension Mother other (sleep apnea) Mother Asthma Father No Known Problems Maternal Grandmother Cancer Maternal Grandfather Asthma Paternal Grandmother Heart Paternal Grandmother CHF Asthma Paternal Grandfather Heart Paternal Grandfather CHF PAST SURGICAL HISTORY Procedure Laterality Date LAPAROSCOPIC APPENDECTOMY 01/30/2014 LEEP PROCEDURE ([facility] [employer] [facility] [facility])_*FL OTOPLASTY VEIN SURGERY (SPECIFY LOCATION) HX 12/14/2020 right leg PMH, Social history, family history and surgical history reviewed and updated in EMR REVIEW OF SYSTEMS: CONSTITUTIONAL: No fevers, chills HEENT: Positive nasal congestion/sinus symptoms. No headaches CARDIOVASCULAR: No palpitations PULM: See HPI PHYSICAL EXAMINATION: LMP 04/27/2023 General Appearance: Age-appropriate female, NAD. Skin: Skin color, texture, turgor normal, no suspicious rashes or lesions. Head: Normocephalic, no masses, lesions, tenderness or abnormalities. Eyes:, Conjunctiva normal. Oropharynx: No oral lesions, thrush or erythema. Neck: No JVD, no masses, no adenopathy. Lungs: Not labored, no wheezes or crackles. Frequent wheezy cough. Heart: Regular rate and rhythm, no murmurs or gallops. Assessment/Plan: 1. Intermittent asthma with acute exacerbation -Instructed patient to take her Advair regularly while ill with her upper respiratory infection -Prednisone burst 2. URI -Likely viral but in light of foul tasting phlegm will treat with doxycycline Sandi Grider MD [facility] [place] [facility] 07-13-2023 Miscellaneous Notes See pharmacy generated refill request below and advise. Pt was seen for yearly exam on 01/16/23. Crystal Romano LPN documented in this encounter [facility] 07-02-2023 Telephone encounter Note Sent patient msg to refer to [place] [employer] 07-02-2023 Miscellaneous Notes Sent patient msg to refer to [place] documented in this encounter [facility] 06-16-2023 Note HNO ID: [id number] Author: Sandi Grider MD Service: ? Author Type: Physician Type: Progress Notes Filed: 06/16/2023 3:44 PM Note Text: . [facility] [place] Note Patient name: Jes Fuentes PCP: Giovany Mayer APRN.MANAGER DECISION SUPPORT Referring Physician: Same Consultation requested by Giovany Mayer for an opinion regarding asthma. My final recommendations will be communicated back to the requesting physician by way of shared Medical record or letter to requesting physician via US mail. CC: asthma HPI: Jes Fuentes 32 year old female non-smoker with PMH significant for exercise-induced asthma, anxiety disorder, eczema. Patient was diagnosed with asthma in 2016. She previously had a history of shortness of breath with running. She can keep up with her classmates. Tends to have more trouble in the summer and fall. She has never been formally allergy tested although she has been on Singulair in the past. Currently using OTC antihistamine as Singulair interferes with her Cymbalta causing excessive sleepiness. Her main symptom is dyspnea and nonproductive cough. She has intermittent wheezing. Other than seasonal triggers for her asthma, she has sensitivity to humidity. Current therapy consists of Advair HFA. Only uses albuterol prior to exercise. She uses Advair regularly during allergy season but only once daily which controls her symptoms. No nocturnal awakenings. ASTHMA CONTROL TEST Date: 06/16/2023 In the last 4 weeks, how much of the time did your asthma keep you from getting as much done at work or home that you wanted to do? None of the time (5) In the last 4 weeks, how often have you had shortness of breath? Once or twice per week (4) In the last 4 weeks, how often did your asthma symptoms (wheezing, coughing, shortness of breath, chest tightness or pain) wake you up at night or earlier than usual? Once or twice (4) In the last 4 weeks, how often have you used your rescue inhaler or nebulizer medication (such as Albuterol, Proventil, Ventolin, Maxair, Xoponex, or Primatene Mist)? Once a week or less (4) In the last 4 weeks, how would you rate your asthma control? Well controlled (4) Total: more than 20 DATA: [place] 09/2022: 6 ppb PFT PFT [facility] 06/23/2017: FVC 3.52 L 81% FEV1 2.70 L 73% increases to 2.96 L postbronchodilator FEV1/FVC 77% FEF 25-75% 2.33 L 60% improved to 3.28 L postbronchodilator Lung volumes normal, Diffusion capacity normal Labs: No previous eosinophilia noted on review of EMR Imaging / Diagnostic Studies: DATE OF EXAM: Sep 19 2022 11:31AM WOX 5291 - XR CHEST 2V FRONTAL/LAT / PROCEDURE REASON: cough CLINICAL HISTORY: Cough. MQ: XC2_6 EXAM DATE/TIME: 09/19/2022 11:31 AM COMPARISON: No relevant prior studies available. RESULT: Lines, tubes, and devices: None. Lungs and pleura: Mild bibasilar atelectasis/scarring is noted. The lungs are somewhat overexpanded. Probably focal calcification overlying the left lower lung. No consolidation. No lung mass. No pleural effusion or pneumothorax. Cardiomediastinal silhouette: Normal cardiomediastinal silhouette. Bones and soft tissues: Unremarkable. IMPRESSION: Mild bibasilar atelectasis/scarring. I personally viewed the images which show mild hyperinflation and minimal basilar atelectasis PAST MEDICAL HISTORY Diagnosis Date Abnormal Pap smear of cervix Anxiety Asthma Eczema ALLERGIES No Active Allergies DULoxetine (CYMBALTA) 20 mg capsule Take 1 capsule by mouth once daily. Cholecalciferol-Soy Isoflavone 2,000-64 unit-mg tab Take 1 tablet by mouth once daily. vitamin B complex (B COMPLEX 1 ORAL) Take 1 tablet by mouth once daily. ascorbic acid (VITAMIN C ORAL) Take 1 tablet by mouth once daily. MULTIVITAMIN ORAL Take 1 tablet by mouth once daily. BIOTIN ORAL Take 1 tablet by mouth once daily. rimegepant (NURTEC ODT) 75 mg disintegrating tablet Take 1 tablet by mouth once daily as needed. Norgestimate-Ethinyl Estradiol 0.18/0.215/0.25 mg-25 mcg Take 1 tablet by mouth once daily. Take active pills only. Start a new pack every 3 weeks. fluticasone-salmeterol HFA (ADVAIR) 230-21 mcg/actuation inhaler Inhale 2 Puffs as instructed twice daily. albuterol HFA (PROAIR HFA) 90 mcg/actuation inhaler Inhale 2 Puffs as instructed every 6 hours as needed. 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 [facility] 06-16-2023 History of Present illness Narrative Images from the original note were not included. . [facility] [place] Note Patient name: Jes Fuentes PCP: Giovany Mayer APRN.MANAGER DECISION SUPPORT Referring Physician: Same Consultation requested by Giovany Mayer for an opinion regarding asthma. My final recommendations will be communicated back to the requesting physician by way of shared Medical record or letter to requesting physician via [place] mail. CC: asthma HPI: Jes Fuentes 32 year old female non-smoker with PMH significant for exercise-induced asthma, anxiety disorder, eczema. Patient was diagnosed with asthma in 2016. She previously had a history of shortness of breath with running. She can keep up with her classmates. Tends to have more trouble in the summer and fall. She has never been formally allergy tested although she has been on Singulair in the past. Currently using OTC antihistamine as Singulair interferes with her Cymbalta causing excessive sleepiness. Her main symptom is dyspnea and nonproductive cough. She has intermittent wheezing. Other than seasonal triggers for her asthma, she has sensitivity to humidity. Current therapy consists of Advair HFA. Only uses albuterol prior to exercise. She uses Advair regularly during allergy season but only once daily which controls her symptoms. No nocturnal awakenings. ASTHMA CONTROL TEST Date: 06/16/2023 In the last 4 weeks, how much of the time did your asthma keep you from getting as much done at work or home that you wanted to do? None of the time (5) In the last 4 weeks, how often have you had shortness of breath? Once or twice per week (4) In the last 4 weeks, how often did your asthma symptoms (wheezing, coughing, shortness of breath, chest tightness or pain) wake you up at night or earlier than usual? Once or twice (4) In the last 4 weeks, how often have you used your rescue inhaler or nebulizer medication (such as Albuterol, Proventil, Ventolin, Maxair, Xoponex, or Primatene Mist)? Once a week or less (4) In the last 4 weeks, how would you rate your asthma control? Well controlled (4) Total: more than 20 DATA: [place] 09/2022: 6 ppb PFT PFT [facility] 06/23/2017: FVC 3.52 L 81% FEV1 2.70 L 73% increases to 2.96 L postbronchodilator FEV1/FVC 77% FEF 25-75% 2.33 L 60% improved to 3.28 L postbronchodilator Lung volumes normal, Diffusion capacity normal Labs: No previous eosinophilia noted on review of EMR Imaging / Diagnostic Studies: DATE OF EXAM: Sep 19 2022 11:31AM WOX 5291 - XR CHEST 2V FRONTAL/LAT / PROCEDURE REASON: cough CLINICAL HISTORY: Cough. MQ: XC2_6 EXAM DATE/TIME: 09/19/2022 11:31 AM COMPARISON: No relevant prior studies available. RESULT: Lines, tubes, and devices: None. Lungs and pleura: Mild bibasilar atelectasis/scarring is noted. The lungs are somewhat overexpanded. Probably focal calcification overlying the left lower lung. No consolidation. No lung mass. No pleural effusion or pneumothorax. Cardiomediastinal silhouette: Normal cardiomediastinal silhouette. Bones and soft tissues: Unremarkable. IMPRESSION: Mild bibasilar atelectasis/scarring. I personally viewed the images which show mild hyperinflation and minimal basilar atelectasis PAST MEDICAL HISTORY Diagnosis Date Abnormal Pap smear of cervix Anxiety Asthma Eczema ALLERGIES No Active Allergies DULoxetine (CYMBALTA) 20 mg capsule Take 1 capsule by mouth once daily. Cholecalciferol-Soy Isoflavone 2,000-64 unit-mg tab Take 1 tablet by mouth once daily. vitamin B complex (B COMPLEX 1 ORAL) Take 1 tablet by mouth once daily. ascorbic acid (VITAMIN C ORAL) Take 1 tablet by mouth once daily. MULTIVITAMIN ORAL Take 1 tablet by mouth once daily. BIOTIN ORAL Take 1 tablet by mouth once daily. rimegepant (NURTEC ODT) 75 mg disintegrating tablet Take 1 tablet by mouth once daily as needed. Norgestimate-Ethinyl Estradiol 0.18/0.215/0.25 mg-25 mcg Take 1 tablet by mouth once daily. Take active pills only. Start a new pack every 3 weeks. fluticasone-salmeterol HFA (ADVAIR) 230-21 mcg/actuation inhaler Inhale 2 Puffs as instructed twice daily. albuterol HFA (PROAIR HFA) 90 mcg/actuation inhaler Inhale 2 Puffs as instructed every 6 hours as needed. 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 Pets: dog FAMILY HISTORY Problem Relation Age of Onset Hypertension Mother other (sleep apnea) Mother Asthma Father No Known Problems Maternal Grandmother Cancer Maternal Grandfather Asthma Paternal Grandmother Heart Paternal Grandmother CHF Asthma Paternal Grandfather Heart Paternal Grandfather CHF PAST SURGICAL HISTORY Procedure Laterality Date LAPAROSCOPIC APPENDECTOMY 01/30/2014 LEEP PROCEDURE ([facility] [employer] [facility] [facility])_*FL OTOPLASTY VEIN SURGERY (SPECIFY LOCATION) HX 12/14/2020 right leg PMH, Social history, family history and surgical history reviewed and updated in EMR REVIEW OF SYSTEMS: CONSTITUTIONAL: No fevers, chills, nightsweats, unintended weight loss HEENT: Some nasal congestion/sinus symptoms, problematic problems. EYES: No diplopia or blurry vision. CARDIOVASCULAR: No chest pain, dyspnea, palpitations, orthopnea, PND, edema. PULM: See HPI GI: No dysphagia/odynophagia, problematic reflux, constipation, diarrhea, changes in stool habits : No urinary complaints, history of recurrent UTI NEURO: No new balance problems, peripheral weakness/paresthesias or numbness of concern. MUSC-SKEL: No new joint pain, swelling, or erythema. PSY: No concerns regarding depression. Anxiety disorder INTEGUMENTARY: Eczema. Sensitivity to grass PHYSICAL EXAMINATION: BP 104/78 Pulse 74 Resp 17 Wt 158 lb (71.7kg) SpO2 98% LMP 04/27/2023 General Appearance: Age-appropriate female, NAD. Skin: Skin color, texture, turgor normal, no suspicious rashes or lesions. Head: Normocephalic, no masses, lesions, tenderness or abnormalities. Eyes: No scleral injection. Oropharynx: No lesions or thrush. Neck: No JVD, no masses, no thyromegaly Lungs: Not labored, normal to percussion, no wheezes or crackles. Heart: Regular rate and rhythm, no murmurs or gallops. Extremities: No edema or clubbing. Musculoskeletal: No joint deformities. Neurologic: Alert and oriented, no focal findings. Lymph Nodes: No cervical lymphadenopathy and No supraclavicular lymphadenopathy. Assessment/Plan: 1. Mild intermittent asthma, uncomplicated -She will continue on her current therapy. Refilled prescription for her albuterol 2. Seasonal allergies -No eosinophilia on peripheral smear noted but seasonal predominance of symptoms would suggest an allergic component -[place] allergen panel Sandi Grider MD [facility] [place] documented in this encounter [facility] 06-11-2023 Note HNO ID: [id number] Author: Giovany Mayer APRN.MANAGER DECISION SUPPORT Service: ? Author Type: Nurse Practitioner Type: Progress Notes Filed: 06/11/2023 10:01 AM Note Text: Chief Complaint Patient presents with: Medication Follow-up HPI Jes Fuentes is a 32 year old female who presents here today for Above Complaints. Today: Started Cymbalta in December and is doing much better. Has a lot less irritability. At first felt very tired but this has improved-is getting back to the gym which has helped. has noticed a huge difference. Has improved her headaches as well. Past medical history, appointments, medications, allergies reviewed. Previous Medical History PAST MEDICAL HISTORY Diagnosis Date Abnormal Pap smear of cervix Anxiety Asthma Eczema Mental disorder Previous Surgical History PAST SURGICAL HISTORY Procedure Laterality Date LAPAROSCOPIC APPENDECTOMY 01/30/2014 LEEP PROCEDURE ([facility] [employer] [facility] [facility])_*FL VEIN SURGERY (SPECIFY LOCATION) HX 12/14/2020 right leg Family History FAMILY HISTORY Problem Relation Age of Onset Hypertension Mother other (sleep apnea) Mother Heart Father MVP No Known Problems Maternal Grandmother Cancer Maternal Grandfather Asthma Paternal Grandmother Heart Paternal Grandmother CHF Asthma Paternal Grandfather Heart Paternal Grandfather CHF Patient Allergies ALLERGIES Allergen Reactions Keflex [Cephalexin] Rash Penicillins Rash Current Medications Current Outpatient Medications on File Prior to Visit Medication Sig Cholecalciferol-Soy Isoflavone 2,000-64 unit-mg tab Take 1 tablet by mouth once daily. vitamin B complex (B COMPLEX 1 ORAL) Take 1 tablet by mouth once daily. DULoxetine (CYMBALTA) 20 mg capsule take 1 capsule by mouth once daily ascorbic acid (VITAMIN C ORAL) Take 1 tablet by mouth once daily. MULTIVITAMIN ORAL Take 1 tablet by mouth once daily. BIOTIN ORAL Take 1 tablet by mouth once daily. rimegepant (NURTEC ODT) 75 mg disintegrating tablet Take 1 tablet by mouth once daily as needed. Norgestimate-Ethinyl Estradiol 0.18/0.215/0.25 mg-25 mcg Take 1 tablet by mouth once daily. Take active pills only. Start a new pack every 3 weeks. fluticasone-salmeterol HFA (ADVAIR) 230-21 mcg/actuation inhaler Inhale 2 Puffs as instructed twice daily. albuterol HFA (PROAIR HFA) 90 mcg/actuation inhaler Inhale 2 Puffs as instructed every 6 hours as needed. No current facility-administered medications on file prior to visit. Social History Social History Tobacco Use Smoking status: Never Smokeless tobacco: Never Vaping Use Vaping Use: Never used Substance Use Topics Alcohol use: Not Currently Drug use: No Review of Symptoms REVIEW OF SYSTEMS See HPI, otherwise negative EXAM: BP 100/76 (BP Site: Left Arm, BP Position: Sitting, BP Cuff Size: Regular Adult) Pulse 91 Wt 72.2 kg (159 lb 3.2 oz) LMP 04/27/2023 (Approximate) SpO2 97% BMI 23.99 kg/m? General Appearance: Well appearing, alert, in no acute distress, well-hydrated, well nourished.. Lungs: Lungs clear to auscultation. No wheezing, rhonchi, rales.. Heart: RRR without murmur, gallop, or rubs. No ectopy. Psychiatric: pleasant, cooperative, no SI/HI. Health Maintenance List PNEUMOCOCCAL(1 - PCV) Never done SPIROMETRY Never done COVID-19 VACCINE(3 - Moderna series) due on 01/15/2021 HPV VACCINE(2 - 3-dose SCDM series) due on 02/13/2023 HEPATITIS C SCREENING due on 12/04/2023 INFLUENZA(1) due on 06/19/2023 ANNUAL PCP TEAM CHRONIC DISEASE VISIT due on 01/09/2024 PAP TESTING due on 12/19/2026 HPV TESTING due on 12/19/2026 DTAP,TDAP,TD(2 - Td or Tdap) due on 04/19/2029 DEPRESSION ASSESSMENT Completed HIV SCREENING Completed HEPATITIS B Discontinued Data reviewed Previous records, office notes ASSESSMENT/PLAN: 1. Irritability - ICD9: 799.22, ICD10: R45.4 (primary diagnosis) Significant improvement in sx. Tolerating Cymbalta well, this is a good dose. Follow up in 6 months, sooner if necessary. - DULOXETINE 20 MG CAPSULE,DELAYED RELEASE 2. Situational anxiety - ICD9: 300.09, ICD10: F41.8 Significant improvement in sx. Tolerating Cymbalta well, this is a good dose. Follow up in 6 months, sooner if necessary. - DULOXETINE 20 MG CAPSULE,DELAYED RELEASE 3. Depression with anxiety - ICD9: 300.4, ICD10: F41.8 Significant improvement in sx. Tolerating Cymbalta well, this is a good dose. Follow up in 6 months, sooner if necessary. - DULOXETINE 20 MG CAPSULE,DELAYED RELEASE Giovany Mayer APRN.[facility] 06-03-2023 Note Plastic Surgery Prog ress Note Interval events: s/p otoplasty bilaterally 05/28/23 Doing well Happy with results Returned to work Exam: Vitals: 06/03/23 1328 BP: 122/82 Pulse: 80 Bilateral Ear - no hematoma; minor swelling Left rim slightly effaced Position good Assessment/Plan: 32 y.o. female s/p BL otoplasty 05/28/23 Continue wound care / incision care No swimming x4wks Can return to work RTC 3 months for post-op pic's. Jacob Garcia, PRS Fellow [phone] I was present with the resident during the history and exam. I discussed the case with the resident and agree with the findings and plan as documented in the resident's note. Scott Masters M.D. Pager: [phone] [facility] 06-03-2023 History of Present illness Narrative Images from the original note were not included. Plastic Surgery Progress Note Interval events: s/p otoplasty bilaterally 05/28/23 Doing well Happy with results Returned to work Exam: Vitals: 06/03/23 1328 BP: 122/82 Pulse: 80 Bilateral Ear - no hematoma; minor swelling Left rim slightly effaced Position good Assessment/Plan: 32 y.o. female s/p BL otoplasty 05/28/23 Continue wound care / incision care No swimming x4wks Can return to work RTC 3 months for post-op pic's. Jacob Garcia, PRS Fellow [phone] I was present with the resident during the history and exam. I discussed the case with the resident and agree with the findings and plan as documented in the resident's note. Scott Masters M.D. Pager: [phone] documented in this encounter [facility] 05-28-2023 Note Patient: Jes jauregui Procedure Summary Date: 05/28/23 Room / Location: [address] Operating Room Anesthesia Start: 1305 Anesthesia Stop: 1649 Procedure: BILATERAL OTOPLASTY (Bilateral: Ear) Diagnosis: Prominent ear (Prominent ear [Q17.5]) Surgeons: Scott Masters MD Responsible Provider: Kye Godwin APRN - OUTREACH CONSULTANT Anesthesia Type: general ASA Status: 2 Anesthesia Type: general Vitals Value Taken Time BP 102/63 05/28/23 1657 Temp 36.2 ?C (97.1 ?F) 05/28/23 1657 Pulse 89 05/28/23 1658 Resp 21 05/28/23 1658 SpO2 99 % 05/28/23 1658 Vitals shown include unvalidated device data. Anesthesia Post Evaluation Patient location during evaluation: PACU Patient participation: complete - patient participated Level of consciousness: sleepy but conscious Pain management: satisfactory to patient Airway patency: patent Dental Injury: no Cardiovascular status: acceptable, blood pressure returned to baseline and hemodynamically stable Respiratory status: acceptable and spontaneous ventilation Hydration status: euvolemic Nausea/Vomiting: controlled No notable events documented. Patient can be discharged once all PACU criteria has been met. [facility] 05-28-2023 Note Patient: Jes jauregui Procedure Summary Date: 05/28/23 Room / Location: [address] Operating Room Anesthesia Start: 1305 Anesthesia Stop: 1649 Procedure: BILATERAL OTOPLASTY (Bilateral: Ear) Diagnosis: Prominent ear (Prominent ear [Q17.5]) Surgeons: Scott Masters MD Responsible Provider: HERNANDEZ Nagel CRNA Anesthesia Type: general ASA Status: 2 Anesthesia Type: general Vitals Value Taken Time BP 102/63 05/28/23 1657 Temp 36.2 ?C (97.1 ?F) 05/28/23 1657 Pulse 94 05/28/23 1657 Resp 20 05/28/23 1657 SpO2 99 % 05/28/23 1657 Vitals shown include unvalidated device data. Anesthesia Post Evaluation Patient location during evaluation: PACU Patient participation: complete - patient participated Level of consciousness: sleepy but conscious Pain score: 0 Pain management: satisfactory to patient Multimodal analgesia pain management approach Airway patency: patent Two or more strategies used to mitigate risk of obstructive sleep apnea Cardiovascular status: acceptable and hemodynamically stable Respiratory status: acceptable and face mask Hydration status: acceptable No notable events documented. MIPS #430 PONV Patient did not receive an inhalational anesthetic (XX430) MIPS # 424 Perioperative Temperature Management Anesthesia time was 60 minutes or longer (4255F) Anesthesai administered was General (inhalational or TIVA) or Neuraxial block (X0424) At least one body temperature greater than 95.8F/35.5C achieved within the 30 mins immediately prior to or the 15 minutes immediately following anesthesia end time (G9771) MIPS #477 Multimodal Pain Management Not emergent case Patient was administered multimodal pain management (two or more drugs and/or interventions excluding systemic opioids) in the periopeartive period occurring at some time between 6 hours prior to anesthesia start time until discharged from PACU (G2148) [facility] #404 Anesthesiology Smoking Abstinence The patient is not a current smoker (e.g. cigarette, cigar, pipe, e-cigarette/vaping/marijuana) If no stop here (G9644) I completed my handoff to the receiving clinician during which we: 1. Identified the patient 2. Identified the responsible provider 3. Reviewed the pertinent medical history 4. Discussed the surgical course 5. Reviewed intra-op anesthesia management and issues during anesthesia 6. Set expectations for post-procedure period 7. Allowed opportunity for questions and acknowledgement of understanding. [facility] 05-28-2023 Miscellaneous Notes Pt discharged via wheelchair with RN and family, nad, resp non labored, alert and oriented. Pt ambulated to restroom without difficulty, return to room and discharge instructions given to pt and family and they verbalize understanding. Pt with slight facial droop on right, Dr Garcia notified and he states he did a facial block and that it will wear off. Pt and family advised of same. documented in this encounter [facility] 05-28-2023 Note Formatting of this n ote might be different from the original. Pt discharged via wheelchair with RN and family, nad, resp non labored, alert and oriented. [facility] 05-28-2023 Note Formatting of this n ote might be different from the original. Pt ambulated to restroom without difficulty, return to room and discharge instructions given to pt and family and they verbalize understanding. Pt with slight facial droop on right, Dr Garcia notified and he states he did a facial block and that it will wear off. Pt and family advised of same. [facility] 05-28-2023 Note Airway Date/Time: 05/28/2023 1:13 PM Urgency: scheduled Airway not difficult General Information and Staff Patient location during procedure: Procedural Resident/OUTREACH CONSULTANT: HERNANDEZ Nagel CRNA Performed: OUTREACH CONSULTANT Performed by: HERNANDEZ Nagel CRNA Authorized by: HERNANDEZ Nagel CRNA Indications and Patient Condition Indications for airway management: anesthesia and airway protection Sedation level: Asleep Preoxygenated: yes Patient position: sniffing Mask difficulty assessment: 1 - vent by mask Final Airway Details Final airway type: endotracheal airway Successful airway: ETT Cuffed: yes Successful intubation technique: direct laryngoscopy Blade: Myra Blade size: #3 ETT size (mm): 7.0 Cormack-Lehane Classification: grade IIa - partial view of glottis Placement verified by: chest auscultation and capnometry Measured from: lips ETT to lips (cm): 19 Number of attempts at approach: 1 [facility] 05-28-2023 Note Update History & Phy sical I examined the patient and there were no significant changes from the previous History and Physical. I verify that the patient's condition and planned treatment has not changed. I also confirm the necessity for the procedure still present. Planned Procedure: B otoplasty Patient seen and marked today. Risks/benefits/possible complications were reviewed with the patient as per the preoperative office note to include but not limited to bleeding, infection, wound healing issues, seroma/hematoma. [facility] 05-28-2023 Hospital Discharge instructions Jacob Garcia MD - 05/28/2023 12:45 AM EDT Discharge instructions You have skin glue over your incision. Leave open to air. Keep your head wrap on for 2 days - may remove for hygiene You may shower in 5 days Pat dry Do not soak, bathe, or swim for 6 weeks No strenuous activity for 2 weeks No heavy lifting (>20lbs) for 2 weeks No [address] when taking narcotic pain medications You may take tylenol for pain. Do not exceed 3000mg per day You may also take ibuprofen for pain. Do not exceed 2400mg per day You have been prescribed narcotic pain (oxycodone) medication. Take as needed. DANGER SIGNS Please contact your surgeon or go to the EMERGENCY room if you have any of the following: - Shortness of breath - Chest pain - Fever greater than 101.5 F (38.6 C) - Increased wound drainage - Wound erythema or changes in the skin around the wound - Increasing severe pain - Inability to take in liquids or solid foods for more than 24 hours documented in this encounter [facility] 05-21-2023 Note Patient: Jes jauregui Procedure Information Date/Time: 05/28/23 1130 Procedure: BILATERAL OTOPLASTY (Bilateral: Ear) - surgery is 3 hours Location: [facility] OR [address] [place] [address] Operating Room Surgeons: Scott Masters MD Relevant Problems Anesthesia (+) History of palpitations Cardio (+) Symptomatic varicose veins of right lower extremity Pulmonary (+) Dyspnea on exertion (+) Exercise-induced asthma Past Medical History: Past Medical History: No date: Asthma No date: PONV (postoperative nausea and vomiting) No date: Varicose veins of lower extremity Comment: RIGHT LEG ; SCHEDULED FOR THE SURGERY ON 12/14/20 AT [facility] Past Surgical History: Past Surgical History: No date: APPENDECTOMY Comment: IN [place] No date: CERVICAL BIOPSY W/ LOOP ELECTRODE EXCISION 12/14/2020: OTHER SURGICAL HISTORY; Right Comment: ligation of lesser saphenous vein and excision witn trivex Social History: TOBACCO: reports that she has never smoked. She has never used smokeless tobacco. ETOH: reports that she does not currently use alcohol. Social History Substance and Sexual Activity Drug Use Never Family History: Family History Problem Relation Name Age of Onset ? High Blood Pressure Mother ? No Known Problems Father Screening: Having periods Clinical information reviewed: Tobacco Allergies Meds Med Hx Surg Hx OB Status Fam Hx Soc Hx Physical Exam Airway Mallampati: II TM distance: >3 FB Neck ROM: full Mouth Open: normalendotracheal tube not in place Cardiovascular Dental dentition normal Pulmonary Abdominal Anesthesia Plan patient is NPO appropriate Any family history or previous problems with anesthesia no ASA 2 general Any family history or previous problems with anesthesia no The patient is not a current smoker. Anesthetic plan and risks discussed with patient (best friend). ERAS Type General ERAS Hx PONV NIURKA Screening Labs: Lab Results Component Value Date WBC 7.2 12/07/2020 HGB 13.1 12/07/2020 MCV 88.2 12/07/2020 Lab Results Component Value Date NA 136 12/07/2020 K 4.2 12/07/2020 CL 102 12/07/2020 CO2 27 12/07/2020 BUN 19 12/07/2020 CREATININE 0.69 12/07/2020 GLUCOSE 105 (H) 12/07/2020 CALCIUM 9.0 12/07/2020 No echocardiogram results found for the past 14 days 05/21/23 ECG 12-LEAD (Preliminary) This result has not been signed. Information might be incomplete. Impression Sinus rhythm [facility] 05-21-2023 Note Comprehensive Pre Echeverria rgical History and Physical ? Name: Jes Fuentes : 1990 (Age-32 y.o.) Date of Service: Pt seen/examined on 05/21/2023 Procedure Information Date/Time: 05/28/23 1130 Procedure: BILATERAL OTOPLASTY (Bilateral: Ear) - surgery is 3 hours Location: [address] Operating Room Surgeons: Scott Masters MD Chief Complaint: Prominent ear [Q17.5] ASSESSMENT/PLAN: Patient is considered low risk for this low/intermediate risk procedure/surgery () with no reducible risk factors. Based on the above evaluation, the benefits of the planned procedure likely exceed the risks. The patient is medically optimized to proceed with the planned procedure without any further cardiopulmonary testing. 1) Prominent ear [Q17.5] - Managed per surgery - labs ordered per PAT protocol; EKG, H&H 2) Asthma (exercise induced) - managed on PRN Advair albuterol inhaler - last use last week before her workout. Patient reports she uses her inhaler prior to exercising. - Lungs CTA. No sob or wheezing on exam 3) Control - managed o Ortho Tricyclen 4) Health Maintenance - managed on Multivitamins Visit Type: Pre-Admission Testing Visit Labs Ordered: YES - PER PAT PROTOCOL Sleep Referral Ordered: NO - NEGATIVE SCREEN PER SLEEP REFERRAL PROTOCOL Total time spent (which include face to face and non face to face encounters) : 30 minutes Toxic drug monitoring/narrow therapeutic index drug monitoring : # Drug name : n/a # Route administered : n/a # Method of monitoring : n/a PAT Protocol referenced includes: 1. Anesthesia Lab Protocol Orders 2. Perioperative Cardiovascular Risk Assessment 3. Anesthesia Assessment 4. Pain Assessment and Acute Pain Service Consult (if appropriate) 5. Medical Clearance/Consult from Internal Medicine (IMS) 6. Shower/Wash Order (for designated surgeries) 7. NIURKA Screen and Sleep Clinic Referral (if appropriate) History Of Present Illness: 32 y.o. female who we are asked to see/evaluate by Scott Masters MD for pre-operative evaluation prior to above procedure. Patient presented to [facility] in no acute physical distress. She reports most of her life she has disliked how her ears sit on her head. She denies any hearing difficulties or ear pain. Last OV with Scott Masters MD 05/06/2023. She denies sob, cp, palpitations, abdominal discomfort, n/v/d/c fever or chills. Denies history of NE, CAD, CHF, TIA, CVA, diabetes, seizures, strokes. Past Medical History: Past Medical History: No date: Asthma No date: PONV (postoperative nausea and vomiting) No date: Varicose veins of lower extremity Comment: RIGHT LEG ; SCHEDULED FOR THE SURGERY ON 12/14/20 AT [facility] Past Surgical History: Past Surgical History: No date: APPENDECTOMY Comment: IN [place] No date: CERVICAL BIOPSY W/ LOOP ELECTRODE EXCISION 12/14/2020: OTHER SURGICAL HISTORY; Right Comment: ligation of lesser saphenous vein and excision witn trivex Medications Prior to Admission: Current Outpatient Medications on File Prior to Visit Medication Sig Dispense Refill Advair HFA 230-21 MCG/ACT inhaler albuterol 108 (90 Base) MCG/ACT inhaler Ascorbic Acid (vitamin C) 250 MG tablet Take 250 mg by mouth daily. B Complex Vitamins (vitamin-B complex) split tablet biotin 52559 MCG tablet Take 60,000 mcg by mouth daily. cholecalciferol (Vitamin D-3) 50 MCG (2000 UT) tablet DULoxetine (Cymbalta) [address] capsule Take 20 mg by mouth in the morning. Multiple Vitamin (MULTIVITAMIN ADULT PO) norgestimate-ethinyl estradiol (Ortho Tri-Cyclen LO) 0.18/0.215/0.25 MG-25 MCG tablet Rimegepant Sulfate 75 MG tablet dispersible Take 75 mg by mouth. No current facility-administered medications on file prior to visit. CHRONIC NARCOTIC USE: No Allergies: Patient has no known allergies. If patient has opioid allergy, is it okay to take Acetaminophen: Yes Social History: TOBACCO: reports that she has never smoked. She has never used smokeless tobacco. ETOH: reports that she does not currently use alcohol. Social History Substance and Sexual Activity Drug Use Never Family History: Family History Problem Relation Name Age of Onset High Blood Pressure Mother No Known Problems Father REVIEW OF SYSTEMS: Review of Systems Constitutional: Negative for chills and fever. HENT: Negative for congestion and trouble swallowing. Eyes: Negative for visual disturbance. Respiratory: Negative for cough and shortness of breath. Cardiovascular: Negative for chest pain, palpitations and leg swelling. Gastrointestinal: Negative for blood in stool and nausea. Genitourinary: Negative for difficulty urinating and dysuria. Skin: Negative for rash. Neurological: Negative for dizziness, syncope, light-headedness and headaches. Psychiatric/Behavioral: Negative for agita (more content not included)... [facility] 05-21-2023 Note Comprehensive Pre Echeverria rgical History and Physical ? Name: Jes Fuentes : 1990 (Age-32 y.o.) Date of Service: Pt seen/examined on 05/21/2023 Procedure Information Date/Time: 05/28/23 1130 Procedure: BILATERAL OTOPLASTY (Bilateral: Ear) - surgery is 3 hours Location: [facility] OR [address] [place] [address] Operating Room Surgeons: Scott Masters MD Chief Complaint: Prominent ear [Q17.5] ASSESSMENT/PLAN: Patient is considered low risk for this low/intermediate risk procedure/surgery () with no reducible risk factors. Based on the above evaluation, the benefits of the planned procedure likely exceed the risks. The patient is medically optimized to proceed with the planned procedure without any further cardiopulmonary testing. 1) Prominent ear [Q17.5] - Managed per surgery - labs ordered per PAT protocol; EKG, H&H 2) Asthma (exercise induced) - managed on PRN Advair albuterol inhaler - last use last week before her workout. Patient reports she uses her inhaler prior to exercising. - Lungs CTA. No sob or wheezing on exam 3) Control - managed o Ortho Tricyclen 4) Health Maintenance - managed on Multivitamins Visit Type: Pre-Admission Testing Visit Labs Ordered: YES - PER PAT PROTOCOL Sleep Referral Ordered: NO - NEGATIVE SCREEN PER SLEEP REFERRAL PROTOCOL Total time spent (which include face to face and non face to face encounters) : 30 minutes Toxic drug monitoring/narrow therapeutic index drug monitoring : # Drug name : n/a # Route administered : n/a # Method of monitoring : n/a PAT Protocol referenced includes: 1. Anesthesia Lab Protocol Orders 2. Perioperative Cardiovascular Risk Assessment 3. Anesthesia Assessment 4. Pain Assessment and Acute Pain Service Consult (if appropriate) 5. Medical Clearance/Consult from Internal Medicine ([facility]) 6. Shower/Wash Order (for designated surgeries) 7. NIURKA Screen and Sleep Clinic Referral (if appropriate) History Of Present Illness: 32 y.o. female who we are asked to see/evaluate by Scott Masters MD for pre-operative evaluation prior to above procedure. Patient presented to [facility] in no acute physical distress. She reports most of her life she has disliked how her ears sit on her head. She denies any hearing difficulties or ear pain. Last OV with Scott Masters MD 05/06/2023. She denies sob, cp, palpitations, abdominal discomfort, n/v/d/c fever or chills. Denies history of NE, CAD, CHF, TIA, CVA, diabetes, seizures, strokes. Past Medical History: Past Medical History: No date: Asthma No date: PONV (postoperative nausea and vomiting) No date: Varicose veins of lower extremity Comment: RIGHT LEG ; SCHEDULED FOR THE SURGERY ON 12/14/20 AT [facility] Past Surgical History: Past Surgical History: No date: APPENDECTOMY Comment: IN [place] No date: CERVICAL BIOPSY W/ LOOP ELECTRODE EXCISION 12/14/2020: OTHER SURGICAL HISTORY; Right Comment: ligation of lesser saphenous vein and excision witn trivex Medications Prior to Admission: Current Outpatient Medications on File Prior to Visit Medication Sig Dispense Refill Advair HFA 230-21 MCG/ACT inhaler albuterol 108 (90 Base) MCG/ACT inhaler Ascorbic Acid (vitamin C) 250 MG tablet Take 250 mg by mouth daily. B Complex Vitamins (vitamin-B complex) split tablet biotin 41746 MCG tablet Take 60,000 mcg by mouth daily. cholecalciferol (Vitamin D-3) 50 MCG (2000 UT) tablet DULoxetine (Cymbalta) [address] capsule Take 20 mg by mouth in the morning. Multiple Vitamin (MULTIVITAMIN ADULT PO) norgestimate-ethinyl estradiol (Ortho Tri-Cyclen LO) 0.18/0.215/0.25 MG-25 MCG tablet Rimegepant Sulfate 75 MG tablet dispersible Take 75 mg by mouth. No current facility-administered medications on file prior to visit. CHRONIC NARCOTIC USE: No Allergies: Patient has no known allergies. If patient has opioid allergy, is it okay to take Acetaminophen: Yes Social History: TOBACCO: reports that she has never smoked. She has never used smokeless tobacco. ETOH: reports that she does not currently use alcohol. Social History Substance and Sexual Activity Drug Use Never Family History: Family History Problem Relation Name Age of Onset High Blood Pressure Mother No Known Problems Father REVIEW OF SYSTEMS: Review of Systems Constitutional: Negative for chills and fever. HENT: Negative for congestion and trouble swallowing. Eyes: Negative for visual disturbance. Respiratory: Negative for cough and shortness of breath. Cardiovascular: Negative for chest pain, palpitations and leg swelling. Gastrointestinal: Negative for blood in stool and nausea. Genitourinary: Negative for difficulty urinating and dysuria. Skin: Negative for rash. Neurological: Negative for dizziness, syncope, light-headedness and headaches. Psychiatric/Behavioral: Negative for agita (more content not included)... [facility] 05-19-2023 Note HNO ID: [id number] Author: Malorie Hooper PA-C Service: ? Author Type: Physician Global Human Resources Director Type: Progress Notes Filed: 05/19/2023 10:29 AM Note Text: [facility] Follow up CC: Headache Follow up Last Visit: 12/09/22 Assessment AND Plan: Jes Fuentes is a 32 year old right-handed female with a history of anxiety, depression, migraine. Her examination demonstrates no neurologic abnormalities. Patient with 2 different headache complaints spanning many years. Most common headache occurs roughly 8 times a month, lasting a few hours and relieved completely with Tylenol. Patient notes this stems from the neck musculature, worse with neck movement, worse with straining the neck. This headache is not associated other symptoms, likely cervicogenic in nature. Will refer to physical therapy for further management. Second type of headache occurs 1-2 times a year, associated with aura, right-sided facial numbness and right-sided upper extremity numbness, difficulty speaking, slurred speech, confusion. MRI and MRI in the past have been without any abnormality. 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 She does have partial relief with this medication, but does have side effects. Discussed avoiding triptans as they are contraindicated in hemiplegic migraines. Will write for [facility] due to this contraindication. Patient recently started on Cymbalta for depression and anxiety. She notes having a headache since this but this is likely due to caffeine withdrawal as she stopped taking caffeine when she started Cymbalta. We will not trial any other preventative at this time, will give Cymbalta 3 months and reassess adding an additional medication. Discussed using supplements in addition to Cymbalta, specifically magnesium, B2, co-Q10. Discussed common side effects with the supplements, patient would like to try these and information education was printed and given to patient. Red flag signs and symptoms were discussed with patient, patient understands. No further imaging warranted at this time, patient has had multiple MRIs of the brain without any abnormality, MRA of the brain in 2018 was without any abnormality. Patient does see optometry, has not seen them in many years. Discussed due to vision symptoms with her headaches, encouraged annual visits. Patient agreeable to treatment plan of care at this time, all questions were answered. Patient to follow-up in 3 months or sooner should any symptoms change or worsen. Today: Patient is here for headache/migraine follow up. Last appointment patient with cervicogenic headache as well as migraines, has aura migraine 2 times a year. Migraines are hemiplegic in nature and wrote for nurtec, started on cymbalta by PCP prior to her appointment. Since last visit headaches have significantly improved. Notes that her headaches have improved in both severity and occurrence. Has not had a migraine headache since last appointment, has not used Nurtec yet. Does still gets posterior head and neck pain based headaches when she strains her neck during working out. She also tends to trigger these headaches with dehydration as well. She states that she takes Tylenol as needed or drinks a glass of water with significant improvement and resolution of her headache. No new symptoms, no vision changes, patient otherwise doing very well. Does note that she is scheduled to have an otoplasty next week, no new diagnoses or medications since last appointment. Current Headache treatment Preventative: Cymbalta 20mg Abortive: Nurtec, tylenol Medications effective? yes # of doses of abortive medications per month: 2 a month Total headache days per month: 1-2 Total headache attacks per month: 1-2 Headache free days: Yes Duration of attacks: resolves within an hour Severity of headaches? 2/10 Location: back of the head . Aura: None Accompanying symptoms: same as previous. Quality:throbbing and aching . Worse with activity: No Pain today: 0/10 Triggers: dehydration and straining neck, too much caffeine. Prodrome:none. Tobacco Use: No. Alcohol Use: No Caffeine:Yes: one coffee daily Prior Therapies Cymbalta Tylenol The patient's prior records were reviewed including and lab testing, imaging, and procedures done since their last visit with me. Review of symptoms including constitutional, eyes, ENT, neck, respiratory, cardiovascular, GI, , musculoskeletal, hematologic, oncologic, endocrine, and psychiatric categories is unchanged. No new details in the family history or social history were offered by the patient. PAST MEDICAL HISTORY Diagnosis Date Abnormal Pap smear of cervix Anxiety Asthma Eczema Mental disorder PAST SURGICAL HISTORY Procedure Laterality Date LAPAROSCOPIC APPENDECTOMY 01/30/2014 LEEP PROCEDURE ([facility])_*FL VEIN SURGERY (SPE (more content not included)... [facility] 05-19-2023 Instructions Malorie Hooper PA-C - 05/19/2023 10:15 AM EDT Continue Cymbalta 20mg Take tylenol as needed for headaches Follow up in 6 months documented in this encounter [facility] 05-19-2023 History of Present illness Narrative Images from the original note were not included. [facility] Neu[facility] Follow up CC: Headache Follow up Last Visit: 12/09/22 Assessment & Plan: Jes Fuentes is a 32 year old right-handed female with a history of anxiety, depression, migraine. Her examination demonstrates no neurologic abnormalities. Patient with 2 different headache complaints spanning many years. Most common headache occurs roughly 8 times a month, lasting a few hours and relieved completely with Tylenol. Patient notes this stems from the neck musculature, worse with neck movement, worse with straining the neck. This headache is not associated other symptoms, likely cervicogenic in nature. Will refer to physical therapy for further management. Second type of headache occurs 1-2 times a year, associated with aura, right-sided facial numbness and right-sided upper extremity numbness, difficulty speaking, slurred speech, confusion. MRI and MRI in the past have been without any abnormality. 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 She does have partial relief with this medication, but does have side effects. Discussed avoiding triptans as they are contraindicated in hemiplegic migraines. Will write for [facility] due to this contraindication. Patient recently started on Cymbalta for depression and anxiety. She notes having a headache since this but this is likely due to caffeine withdrawal as she stopped taking caffeine when she started Cymbalta. We will not trial any other preventative at this time, will give Cymbalta 3 months and reassess adding an additional medication. Discussed using supplements in addition to Cymbalta, specifically magnesium, B2, co-Q10. Discussed common side effects with the supplements, patient would like to try these and information education was printed and given to patient. Red flag signs and symptoms were discussed with patient, patient understands. No further imaging warranted at this time, patient has had multiple MRIs of the brain without any abnormality, MRA of the brain in 2018 was without any abnormality. Patient does see optometry, has not seen them in many years. Discussed due to vision symptoms with her headaches, encouraged annual visits. Patient agreeable to treatment plan of care at this time, all questions were answered. Patient to follow-up in 3 months or sooner should any symptoms change or worsen. Today: Patient is here for headache/migraine follow up. Last appointment patient with cervicogenic headache as well as migraines, has aura migraine 2 times a year. Migraines are hemiplegic in nature and wrote for nurtec, started on cymbalta by PCP prior to her appointment. Since last visit headaches have significantly improved. Notes that her headaches have improved in both severity and occurrence. Has not had a migraine headache since last appointment, has not used Nurtec yet. Does still gets posterior head and neck pain based headaches when she strains her neck during working out. She also tends to trigger these headaches with dehydration as well. She states that she takes Tylenol as needed or drinks a glass of water with significant improvement and resolution of her headache. No new symptoms, no vision changes, patient otherwise doing very well. Does note that she is scheduled to have an otoplasty next week, no new diagnoses or medications since last appointment. Current Headache treatment Preventative: Cymbalta 20mg Abortive: Nurtec, tylenol Medications effective? yes # of doses of abortive medications per month: 2 a month Total headache days per month: 1-2 Total headache attacks per month: 1-2 Headache free days: Yes Duration of attacks: resolves within an hour Severity of headaches? 2/10 Location: back of the head . Aura: None Accompanying symptoms: same as previous. Quality:throbbing and aching . Worse with activity: No Pain today: 0/10 Triggers: dehydration and straining neck, too much caffeine. Prodrome:none. Tobacco Use: No. Alcohol Use: No Caffeine:Yes: one coffee daily Prior Therapies Cymbalta Tylenol The patient's prior records were reviewed including and lab testing, imaging, and procedures done since their last visit with me. Review of symptoms including constitutional, eyes, ENT, neck, respiratory, cardiovascular, GI, , musculoskeletal, hematologic, oncologic, endocrine, and psychiatric categories is unchanged. No new details in the family history or social history were offered by the patient. PAST MEDICAL HISTORY Diagnosis Date Abnormal Pap smear of cervix Anxiety Asthma Eczema Mental disorder PAST SURGICAL HISTORY Procedure Laterality Date LAPAROSCOPIC APPENDECTOMY 01/30/2014 LEEP PROCEDURE ([facility])_*FL VEIN SURGERY (SPECIFY LOCATION) HX 12/14/2020 right leg ALLERGIES Allergen Reactions Keflex [Cephalexin] Rash Penicillins Rash Current Medications: Cholecalciferol-Soy Isoflavone 2,000-64 unit-mg tab Take 1 tablet by mouth once daily. vitamin B complex (B COMPLEX 1 ORAL) Take 1 tablet by mouth once daily. DULoxetine (CYMBALTA) 20 mg capsule take 1 capsule by mouth once daily ascorbic acid (VITAMIN C ORAL) Take 1 tablet by mouth once daily. MULTIVITAMIN ORAL Take 1 tablet by mouth once daily. BIOTIN ORAL Take 1 tablet by mouth once daily. rimegepant (NURTEC ODT) 75 mg disintegrating tablet Take 1 tablet by mouth once daily as needed. Norgestimate-Ethinyl Estradiol 0.18/0.215/0.25 mg-25 mcg Take 1 tablet by mouth once daily. Take active pills only. Start a new pack every 3 weeks. fluticasone-salmeterol HFA (ADVAIR) 230-21 mcg/actuation inhaler Inhale 2 Puffs as instructed twice daily. albuterol HFA (PROAIR HFA) 90 mcg/actuation inhaler Inhale 2 Puffs as instructed every 6 hours as needed. Studies to Review: NO New Health Issues: Yes, having otoplasty next week New Social History: No New Family History: No REVIEW OF SYSTEMS: Sleep: Good, 8-9 hours Mood: normal, Energy: Normal - stable, Stress: Normal GENERAL:No weight loss, malaise or fevers. HEENT:no changes to hearing or vision NECK:negative for neck pain, swelling. RESPIRATORY: Negative for cough, wheezing or shortness of breath. CARDIOVASCULAR: Negative for chest pain, leg swelling or palpitations. GASTROINTESTINAL: Negative for abdominal discomfort, blood in stools or black stools or change in bowel habits GENITOURINARY: No history of dysuria, frequency or incontinence MUSKULOSKELETAL: Negative for joint pain or swelling, back pain or muscle pain. SKIN:Negative for lesions, rash, and itching. HEMATOLOGIC/LYMPHATIC/IMMUNOLOGIC :Negative for prolonged bleeding, bruising easily or swollen nodes. ENDOCRINE: Negative for cold or heat intolerance, polyuria, polydipsia NEUROLOGIC:See HPI PHYSICAL EXAMINATION: BP 108/74 Pulse 76 Resp 16 Wt 73 kg (161 lb) LMP 04/27/2023 (Approximate) SpO2 99% BMI 24.26 kg/m General: well appearing, in no acute distress, alert, HEENT: Normocephalic/atraumatic., Skin: Color, texture, turgor normal. No rashes or lesions, Lungs: breathing comfortably, Musculoskeletal: No gross joint deformities. Neurological Examination: Cognition: The patient is alert and oriented times three Lucid and organized in conversation Able to tell detailed medical hx Speech is Normal in fluency volume and clarity Content and Syntax: Normal Comprehension: Normal, able to follow several step commands Cranial Nerves: Pupils are equal and reactive to light. Pupils normal in size Extraocular movements are grossly intact Good saccades and pursuits No nystagmus Hearing intact to conversation Good upgaze Visual liang are full to confrontation. Palate is upgoing bilaterally SCM and trapezius are full. Shoulder shrug intact Normal tone and strength. Normal coordination. DTRs not tested Normal gait. Impression: ASSESSMENT/PLAN: 1. Cervicogenic headache - ICD9: 784.0, ICD10: G44.86 (primary diagnosis) Significantly improved since starting Cymbalta 20 mg, notes triggers include straining the neck during exercise as well as dehydration. Notes that she is getting less than 1-2 headaches a month and is well controlled with drinking water and taking Tylenol. No new symptoms, is content with current regimen. Does note that she was previously prescribed physical therapy and noted that had with her insurance, but is still interested in this. We will have patient undergo physical therapy for neck. 2. Hemiplegic migraine without status migrainosus, not intractable - ICD9: 346.30, ICD10: G43.409 No migraine since last appointment. Nurtec was approved, but she has yet to take it due to lack of migraine headache. No new symptoms, no red flag signs or symptoms that would warrant additional imaging at this time. Patient to follow-up in 6 months or sooner should any symptoms change or worsen. Patient agreeable to treatment plan of care at this time, all questions were answered. Plan: All options for treatment discussed. Preventative: Cymbalta 20 mg Abortive: Tylenol, Nurtec Follow-up: 6 months I spent a total of 25 minutes on the date of the service which included preparing to see the patient, [id number] patient care, completing clinical documentation, obtaining and/or reviewing separately obtained history, performing a medically appropriate examination, counseling and educating the patient/family/caregiver, and ordering medications, tests, or procedures. Malorie Hooper PA-C General Neurology [address] [place]. [address] Appointment: [phone] documented in this encounter [facility] 05-06-2023 Note [facility] 05/06/2023 1:32 PM Reason for consult/Chief complaint: BL prominent ears, micromastia History of Present Illness: Jes Fuentes is a 32 y.o. female, no significant PMH/PSH who presents with complaint of prominent ears and micromastia. With regards to her ears, they have been prominent since . This has been stable. They are symmetric. She is emotionally distraught by the position of her ears. She was teased growing up. She does not wear her hair up. With regards to her breast, she dislikes her low pointing nipples (ptosis) and her breast size she feels she deflated - particularly after her . She is a 34B and would like to be a C. She has not had mammogram. She denies history of breast cancer or biopsy. REVIEW OF SYSTEMS: An organ system review of symptoms was conducted and was otherwise negative than those symptoms reported in the history of present illness Physical Exam: Vitals: 05/06/23 1313 BP: 116/74 Pulse: 82 GEN: NAD, pleasant, healthy CVS: RRR PULM: No respiratory distress HEENT: PERRLA/EOMI, hearing appears within normal limits Ears are symmetric in size and location Both conchal bowls are slightly deep but do not appear over bearing. The superior rim is effaced. Both antihelix are slightly blunted. BILATERAL: superior 23 mm, mid 28 mm, inferior 18 mm, NECK: Supple with trachea in midline, no masses BREAST: Left larger than Right RIGHT LEFT Ptosis 0 1 SN-N 22 23 IMF-N 7 8 NAC 4.9 4.9 BASE 13.5 13.5 Superior pinch 1.5 1.5 Inferior pinch 1.5 1.5 LAD No No Masses No No Nipple retraction No No ABD: soft/NT/ND EXT: No lymphedema noted NEURO: No focal deficits, no obvious CN deficits Assessment and Plan: Jes Fuentes is 32 y.o. yo female with BL prominent ears and micromastia. With regards to her ears, we discussed that she is fairly symmetric with sizes and tilt within normal anthropromorphic norms. Her prominence is due to increased scapho-conchal angle with blunting of the antihelix. The conchal bowl depth and auriculo-mastoid angle is only mildly increased. She is a good candidate for bilateral otoplasty. We discussed details of the surgical treatment, as well as risk, benefits,a alternative including wound or incisional concerns, infection, bleeding, scarring, the need for possible revisions, among other possible complications. She seemed to have a good understanding of the procedure, and the associated risks and benefits. With regards to her breast, we discussed her minor breast ptosis and size asymmetry (L>R) and decreased in upper pole fullness. She is a good candidate for bilateral augmentation, with minor circumareolar mastopexy if there is gross asymmetry with augmentation alone. We will plan for sub-fascial placement with IMF incision. Her diameter is 13.5. She is currently sized 34B and would ideally to be a full C cup The implant checklist was reviewed with the patient today. All risks of breast augmentation were reviewed in depth, including infection, capsular contracture, bleeding, seroma, LYNDSEY-ALCL, LYNDSEY-SCC, and BII. We discussed that implants do require exchange at some point and are not lifelong implants. Discussed pricing with public health service officer today in office. Clinical photos were obtained. The risks, benefits, alternatives, outcomes, personnel involved were discussed and all questions were answered in a satisfactory manner according to the patient. Specifically,the risks including, but not limited to: bleeding possibly requiring transfusion orreoperation, infection, seroma, nonhealing of wounds, poor cosmetic outcome, scarring, VTE (DVT/PE), and were discussed. A significant amount of time was also allocated to nicotine's effect on wound healing and the patient understands that a sub-optimal wound healing and cosmetic result may occur with continued utilization. We discussed that it would be ideal only address either her ears or breast first given two surgical sites, implants, and the risk of seeding. We jointly agreed to proceed with BL otoplasty first. Jacob Garcia, PRS Fellow [phone] I was present with the resident during the history and exam. I discussed the case with the resident and agree with the findings and plan as documented in the resident's note. Scott Masters M.D. Pager: [phone] [facility] 05-06-2023 History of Present illness Narrative Images from the original note were not included. [facility] 05/06/2023 1:32 PM Reason for consult/Chief complaint: BL prominent ears, micromastia History of Present Illness: Jes Fuentes is a 32 y.o. female, no significant PMH/PSH who presents with complaint of prominent ears and micromastia. With regards to her ears, they have been prominent since . This has been stable. They are symmetric. She is emotionally distraught by the position of her ears. She was teased growing up. She does not wear her hair up. With regards to her breast, she dislikes her low pointing nipples (ptosis) and her breast size she feels she deflated - particularly after her . She is a 34B and would like to be a C. She has not had mammogram. She denies history of breast cancer or biopsy. REVIEW OF SYSTEMS: An organ system review of symptoms was conducted and was otherwise negative than those symptoms reported in the history of present illness Physical Exam: Vitals: 05/06/23 1313 BP: 116/74 Pulse: 82 GEN: NAD, pleasant, healthy CVS: RRR PULM: No respiratory distress HEENT: PERRLA/EOMI, hearing appears within normal limits Ears are symmetric in size and location Both conchal bowls are slightly deep but do not appear over bearing. The superior rim is effaced. Both antihelix are slightly blunted. BILATERAL: superior 23 mm, mid 28 mm, inferior 18 mm, NECK: Supple with trachea in midline, no masses BREAST: Left larger than Right RIGHT LEFT Ptosis 0 1 SN-N 22 23 IMF-N 7 8 NAC 4.9 4.9 BASE 13.5 13.5 Superior pinch 1.5 1.5 Inferior pinch 1.5 1.5 LAD No No Masses No No Nipple retraction No No ABD: soft/NT/ND EXT: No lymphedema noted NEURO: No focal deficits, no obvious CN deficits Assessment and Plan: Jes Fuentes is 32 y.o. yo female with BL prominent ears and micromastia. With regards to her ears, we discussed that she is fairly symmetric with sizes and tilt within normal anthropromorphic norms. Her prominence is due to increased scapho-conchal angle with blunting of the antihelix. The conchal bowl depth and auriculo-mastoid angle is only mildly increased. She is a good candidate for bilateral otoplasty. We discussed details of the surgical treatment, as well as risk, benefits,a alternative including wound or incisional concerns, infection, bleeding, scarring, the need for possible revisions, among other possible complications. She seemed to have a good understanding of the procedure, and the associated risks and benefits. With regards to her breast, we discussed her minor breast ptosis and size asymmetry (L>R) and decreased in upper pole fullness. She is a good candidate for bilateral augmentation, with minor circumareolar mastopexy if there is gross asymmetry with augmentation alone. We will plan for sub-fascial placement with IMF incision. Her diameter is 13.5. She is currently sized 34B and would ideally to be a full C cup The implant checklist was reviewed with the patient today. All risks of breast augmentation were reviewed in depth, including infection, capsular contracture, bleeding, seroma, LYNDSEY-ALCL, LYNDSEY-SCC, and BII. We discussed that implants do require exchange at some point and are not lifelong implants. Discussed pricing with public health service officer today in office. Clinical photos were obtained. The risks, benefits, alternatives, outcomes, personnel involved were discussed and all questions were answered in a satisfactory manner according to the patient. Specifically,the risks including, but not limited to: bleeding possibly requiring transfusion orreoperation, infection, seroma, nonhealing of wounds, poor cosmetic outcome, scarring, VTE (DVT/PE), and were discussed. A significant amount of time was also allocated to nicotine's effect on wound healing and the patient understands that a sub-optimal wound healing and cosmetic result may occur with continued utilization. We discussed that it would be ideal only address either her ears or breast first given two surgical sites, implants, and the risk of seeding. We jointly agreed to proceed with BL otoplasty first. Jacob Garcia, PRS Fellow [phone] I was present with the resident during the history and exam. I discussed the case with the resident and agree with the findings and plan as documented in the resident's note. Scott Masters M.D. Pager: [phone] documented in this encounter [facility] 03-26-2023 Miscellaneous Notes Patient last visit with PCP 12/04/22 Follow up appointment scheduled 04/16/23 Sandi Mora Ma documented in this encounter [facility] 01-16-2023 Note HNO ID: [id number] Author: Leida Montes RN Service: ? Author Type: Registered Nurse Type: Progress Notes Filed: 01/19/2023 6:58 AM Note Text: Jes is a 32 year old who presents for an annual gynecologic exam with complaints, irregular bleeding. She was trying to do the pills continuously but was having a period every 2 weeks. She has switch back to taking placebo week. Her last period was just old blood. 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 History Comments: Sexual Activity: Yes; Male Contraception: Pill PAST MEDICAL HISTORY Diagnosis Date Abnormal Pap smear of cervix Anxiety Asthma Eczema Mental disorder PAST SURGICAL HISTORY Procedure Laterality Date LAPAROSCOPIC APPENDECTOMY 01/30/2014 LEEP PROCEDURE ([facility])_*FL VEIN SURGERY (SPECIFY LOCATION) HX 12/14/2020 right leg FAMILY HISTORY Problem Relation Age of Onset Hypertension Mother other (sleep apnea) Mother Heart Father MVP No Known Problems Maternal Grandmother Cancer Maternal Grandfather Asthma Paternal Grandmother Heart Paternal Grandmother CHF Asthma Paternal Grandfather Heart Paternal Grandfather CHF SOCIAL HISTORY Social History Tobacco Use Smoking status: Never Smokeless tobacco: Never Vaping Use Vaping Use: Never used Substance Use Topics Alcohol use: Not Currently Drug use: No REVIEW OF SYSTEMS Abdomen: No abdominal pain, nausea, vomiting, diarrhea, or constipation. No bloating, early satiety, indigestion, or increased flatulence. Bladder: No dysuria, gross hematuria, urinary frequency, urinary urgency, or incontinence. Breast: No breast lumps, nipple d/c, overlying skin changes, redness or skin retraction. Allergies and current medication updated:Yes EXAM: LMP 02/04/2022 GENERAL: pleasant, female in no apparent distress HEENT: Normocephalic, atraumatic, and no lesions NECK: Supple, full range of motion, no adenopathy, and thyroid normal DERMATOLOGY: Normal, without lesions, non-icteric, and non-hirsute BREAST: soft, non-tender, symmetric, no dominant mass, normal nipple-areolar complex, no lymphadenopathy, and no nipple discharge CHEST: Normal inspiratory effort ABDOMEN: soft, non-tender, and no masses PELVIC: external genitalia normal, normal Bartholin's glands, urethra, [place]'s glands, no vulvar lesions, no cervical lesions, good vaginal support, physiologic discharge present, normal appearing perineal body and perianal region BIMANUAL: uterus normal size, shape and consistency, no adnexal masses, and non-tender NEURO: alert and oriented x3,exam grossly non-focal EXTREMITIES: normal ASSESSMENT/PLAN: 1) Health maintenance: Pap/HPV up to date. Mammogram starting age 40. Nutrition, exercise and routine health maintenance exams reviewed. Calcium/Vitamin D supplementation information provided. 2) Contraception: combined hormonal contraceptives. Contraceptive options reviewed and information provided. 3) STD screening: Declined STD check. 4) Follow up one year or sooner as needed Stephania Eid APRN.MANAGER DECISION SUPPORT Patient identified by name and date of . Jes Nielsen Vic is here for her HPV Gardasil vaccination, injection # one of the series. Patient ?No Gardasil injection was given without incident. See immunizations for details of immunizations administered today. VIS sheet provided: Yes Patient advised to follow up in 2 months from the 1st injection Provider was present in office at time of injection. Stephania Eid APRN.CNP [facility] 01-16-2023 Instructions Stephania Eid APRN.CNP - 01/16/2023 4:16 PM EDT Gardasil Gardasil is a vaccine to protect against Human Papillomavirus (HPV) types 6, 11, 16, 18, 31,33,45, 52, 58. These viruses cause cancer and precancerous lesions on the cervix (opening between vagina and uterus), in the vagina and on the vulva (skin around the outside of the vagina) as well as genital warts. The vaccine cannot cause these diseases and cannot treat them if already present. Gardasil works best if given before contact with HPV. Most people are exposed to HPV soon after starting sexual activity. The vaccine is recommended between the ages of 9 and 45. Gardasil does not protect against all strains of HPV. Women who receive the vaccine still need to have regular pelvic exams and cervical cancer screening with the pap smear. You should ask your doctor if Gardasil is right for you if you have a weakened immune system, a bleeding disorder, plan to become soon or have a current illness causing fever. Gardasil is not recommended for women. You should be sure your doctor is aware of any allergies you have and all medications and herbal supplements you take. Gardasil is given to those ages 9-14 in 2 doses at 0 and 8 months. In ages 15-45, three injections are given at 0,2,6 months. Common side effects include pain, redness, itching and swelling at the injection site, nausea, fever, dizziness and fainting. Rare but potentially serious reactions have been reported. These include allergic reaction, swollen glands, joint and muscle pain, weakness and Guillain-[place] syndrome. documented in this encounter [facility] 01-16-2023 History of Present illness Narrative Jes is a 32 year old who presents for an annual gynecologic exam with complaints, irregular bleeding. She was trying to do the pills continuously but was having a period every 2 weeks. She has switch back to taking placebo week. Her last period was just old blood. 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 History Comments: Sexual Activity: Yes; Male Contraception: Pill PAST MEDICAL HISTORY Diagnosis Date Abnormal Pap smear of cervix Anxiety Asthma Eczema Mental disorder PAST SURGICAL HISTORY Procedure Laterality Date LAPAROSCOPIC APPENDECTOMY 01/30/2014 LEEP PROCEDURE ([facility])_*FL VEIN SURGERY (SPECIFY LOCATION) HX 12/14/2020 right leg FAMILY HISTORY Problem Relation Age of Onset Hypertension Mother other (sleep apnea) Mother Heart Father MVP No Known Problems Maternal Grandmother Cancer Maternal Grandfather Asthma Paternal Grandmother Heart Paternal Grandmother CHF Asthma Paternal Grandfather Heart Paternal Grandfather CHF SOCIAL HISTORY Social History Tobacco Use Smoking status: Never Smokeless tobacco: Never Vaping Use Vaping Use: Never used Substance Use Topics Alcohol use: Not Currently Drug use: No REVIEW OF SYSTEMS Abdomen: No abdominal pain, nausea, vomiting, diarrhea, or constipation. No bloating, early satiety, indigestion, or increased flatulence. Bladder: No dysuria, gross hematuria, urinary frequency, urinary urgency, or incontinence. Breast: No breast lumps, nipple d/c, overlying skin changes, redness or skin retraction. Allergies and current medication updated:Yes EXAM: LMP 02/04/2022 GENERAL: pleasant, female in no apparent distress HEENT: Normocephalic, atraumatic, and no lesions NECK: Supple, full range of motion, no adenopathy, and thyroid normal DERMATOLOGY: Normal, without lesions, non-icteric, and non-hirsute BREAST: soft, non-tender, symmetric, no dominant mass, normal nipple-areolar complex, no lymphadenopathy, and no nipple discharge CHEST: Normal inspiratory effort ABDOMEN: soft, non-tender, and no masses PELVIC: external genitalia normal, normal Bartholin's glands, urethra, [place]'s glands, no vulvar lesions, no cervical lesions, good vaginal support, physiologic discharge present, normal appearing perineal body and perianal region BIMANUAL: uterus normal size, shape and consistency, no adnexal masses, and non-tender NEURO: alert and oriented x3,exam grossly non-focal EXTREMITIES: normal ASSESSMENT/PLAN: 1) Health maintenance: Pap/HPV up to date. Mammogram starting age 40. Nutrition, exercise and routine health maintenance exams reviewed. Calcium/Vitamin D supplementation information provided. 2) Contraception: combined hormonal contraceptives. Contraceptive options reviewed and information provided. 3) STD screening: Declined STD check. 4) Follow up one year or sooner as needed Stephania Eid APRN.MANAGER DECISION SUPPORT Patient identified by name and date of . Jes Fuentes is here for her HPV Gardasil vaccination, injection # one of the series. Patient ?No Gardasil injection was given without incident. See immunizations for details of immunizations administered today. VIS sheet provided: Yes Patient advised to follow up in 2 months from the 1st injection Provider was present in office at time of injection. Stephania Eid APRN.MANAGER DECISION SUPPORT documented in this encounter [facility] 01-13-2023 Miscellaneous Notes Phone call to the insurance [place] regarding PA. Spoke to them and they had stated they had no clinical information. Gave a new fax number and will await decision. Jes Miller LPN Faxed completed paperwork to initiate the PA appeal. Will wait to hear from insurance company. Yessy Saxena MA Patient read on 12/31/22 with no response. DELANO Mcmillan TC to insurance to complete PA verbally. PA denied at this time. Will be faxing denial with reasons & option to appeal. Will wait for denial to initiate an appeal. Patient notified via message. Yessy Saxena MA Patient was scheduled 12/26 for follow up. Confirmed with RA Serna PA still needed complete. Initiated PA through Epic. Will wait. Yessy Saxena MA Second attempt to reach pharmacy with no answer. Unable to speak with staff. Will try again later. DELANO Mcmillan TC to patients pharmacy to inquire about the prior authorization as on our end it states closed . This staff was on hold for several minutes with no answer. Will try again later. Message sent to patient with update. DELANO Mcmillan documented in this encounter [facility] 01-08-2023 Note HNO ID: [id number] Author: Giovany Mayer APRN.HERNANDO Service: ? Author Type: Nurse Practitioner Type: Progress Notes Filed: 01/08/2023 1:58 PM Note Text: VIRTUAL VISIT PROGRESS NOTE This is a virtual visit using [email or web address] video visit. It required patient-provider interaction for the medical decision making as documented below. Jes Fuentes is a 32 year old female seen for medication follow up. Today: Since starting the Cymbalta a month ago has had some fatigue and headaches. Feels very tired, can sleep through her alarm. Mood has improved. Has best energy mid morning to evening, then difficulty waking up in the mornings. Is sleeping well, no change. Wakes up typically once to urinate but then no difficulty going to back to sleep. On average gets about 7 hours of sleep. About 2 weeks ago started losing a ton of hair. 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 Started 2 days ago taking Biotin supplement. HISTORY REVIEWED (electronic chart updated): PAST MEDICAL HISTORY Diagnosis Date Abnormal Pap smear of cervix Anxiety Asthma Eczema Mental disorder PAST SURGICAL HISTORY Procedure Laterality Date LAPAROSCOPIC APPENDECTOMY 01/30/2014 LEEP PROCEDURE ([facility])_*FL VEIN SURGERY (SPECIFY LOCATION) HX 12/14/2020 right leg FAMILY HISTORY Problem Relation Age of Onset Hypertension Mother other (sleep apnea) Mother Heart Father MVP No Known Problems Maternal Grandmother Cancer Maternal Grandfather Asthma Paternal Grandmother Heart Paternal Grandmother CHF Asthma Paternal Grandfather Heart Paternal Grandfather CHF Social History Tobacco Use Smoking status: Never Smokeless tobacco: Never Vaping Use Vaping Use: Never used Substance Use Topics Alcohol use: Not Currently Drug use: No Current Outpatient Medications Medication Sig ascorbic acid (VITAMIN C ORAL) Take 1 tablet by mouth once daily. MULTIVITAMIN ORAL Take 1 tablet by mouth once daily. BIOTIN ORAL Take 1 tablet by mouth once daily. rimegepant (NURTEC ODT) 75 mg disintegrating tablet Take 1 tablet by mouth once daily as needed. DULoxetine (CYMBALTA) 20 mg capsule Take 1 capsule by mouth once daily. Norgestimate-Ethinyl Estradiol 0.18/0.215/0.25 mg-25 mcg Take 1 tablet by mouth once daily. Take active pills only. Start a new pack every 3 weeks. fluticasone-salmeterol HFA (ADVAIR) 230-21 mcg/actuation inhaler Inhale 2 Puffs as instructed twice daily. albuterol HFA (PROAIR HFA) 90 mcg/actuation inhaler Inhale 2 Puffs as instructed every 6 hours as needed. No current facility-administered medications for this visit. ALLERGIES Allergen Reactions Keflex [Cephalexin] Rash Penicillins Rash REVIEW OF SYSTEMS: All other ROS: negative As noted in HPI PHYSICAL EXAMINATION: VIDEO EXAM: (if completed, performed via video enabled technology) Psychiatric: pleasant, cooperative. No other exam performed ASSESSMENT: (R45.4) Irritability (primary encounter diagnosis) (F41.8) Situational anxiety (F41.8) Depression with anxiety (L65.9) Hair loss (R53.83) Fatigue, unspecified type PLAN: Significant improvement with Cymbalta. Possible side effects of fatigue and hair loss. Will continue with Cymbalta 20mg daily. Continue with Biotin/collagen supplement daily. Consider supplementation for fatigue such as magnesium. Follow up in 2 months, sooner if necessary. Giovany Mayer APRN.[facility] 01-08-2023 History of Present illness Narrative VIRTUAL VISIT PROGRESS NOTE This is a virtual visit using [email or web address] video visit. It required patient-provider interaction for the medical decision making as documented below. Jes Fuentes is a 32 year old female seen for medication follow up. Today: Since starting the Cymbalta a month ago has had some fatigue and headaches. Feels very tired, can sleep through her alarm. Mood has improved. Has best energy mid morning to evening, then difficulty waking up in the mornings. Is sleeping well, no change. Wakes up typically once to urinate but then no difficulty going to back to sleep. On average gets about 7 hours of sleep. About 2 weeks ago started losing a ton of hair. 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 Started 2 days ago taking Biotin supplement. HISTORY REVIEWED (electronic chart updated): PAST MEDICAL HISTORY Diagnosis Date Abnormal Pap smear of cervix Anxiety Asthma Eczema Mental disorder PAST SURGICAL HISTORY Procedure Laterality Date LAPAROSCOPIC APPENDECTOMY 01/30/2014 LEEP PROCEDURE ([facility])_*FL VEIN SURGERY (SPECIFY LOCATION) HX 12/14/2020 right leg FAMILY HISTORY Problem Relation Age of Onset Hypertension Mother other (sleep apnea) Mother Heart Father MVP No Known Problems Maternal Grandmother Cancer Maternal Grandfather Asthma Paternal Grandmother Heart Paternal Grandmother CHF Asthma Paternal Grandfather Heart Paternal Grandfather CHF Social History Tobacco Use Smoking status: Never Smokeless tobacco: Never Vaping Use Vaping Use: Never used Substance Use Topics Alcohol use: Not Currently Drug use: No Current Outpatient Medications Medication Sig ascorbic acid (VITAMIN C ORAL) Take 1 tablet by mouth once daily. MULTIVITAMIN ORAL Take 1 tablet by mouth once daily. BIOTIN ORAL Take 1 tablet by mouth once daily. rimegepant (NURTEC ODT) 75 mg disintegrating tablet Take 1 tablet by mouth once daily as needed. DULoxetine (CYMBALTA) 20 mg capsule Take 1 capsule by mouth once daily. Norgestimate-Ethinyl Estradiol 0.18/0.215/0.25 mg-25 mcg Take 1 tablet by mouth once daily. Take active pills only. Start a new pack every 3 weeks. fluticasone-salmeterol HFA (ADVAIR) 230-21 mcg/actuation inhaler Inhale 2 Puffs as instructed twice daily. albuterol HFA (PROAIR HFA) 90 mcg/actuation inhaler Inhale 2 Puffs as instructed every 6 hours as needed. No current facility-administered medications for this visit. ALLERGIES Allergen Reactions Keflex [Cephalexin] Rash Penicillins Rash REVIEW OF SYSTEMS: All other ROS: negative As noted in HPI PHYSICAL EXAMINATION: VIDEO EXAM: (if completed, performed via video enabled technology) Psychiatric: pleasant, cooperative. No other exam performed ASSESSMENT: (R45.4) Irritability (primary encounter diagnosis) (F41.8) Situational anxiety (F41.8) Depression with anxiety (L65.9) Hair loss (R53.83) Fatigue, unspecified type PLAN: Significant improvement with Cymbalta. Possible side effects of fatigue and hair loss. Will continue with Cymbalta 20mg daily. Continue with Biotin/collagen supplement daily. Consider supplementation for fatigue such as magnesium. Follow up in 2 months, sooner if necessary. Giovany Mayer APRN.CNP documented in this encounter [facility] 12-09-2022 Note HNO ID: [id number] Author: Malorie Hooper PA-C Service: ? Author Type: Physician Global Human Resources Director Type: Progress Notes Filed: 12/09/2022 3:43 PM Note Text: Neurology Outpatient Clinic Date: December 09, 2022 Patient Name: Jes Fuentes Referring provider: Giovany García [facility] [id number] Consult requested for headache by Giovany Mayer CNP. Recommendations will be communicated via shared medical record or US mail. Primary provider: [place] [address] Reason for Evaluation: Headaches Subjective HPI Jes Fuentes is a 32 year old right-handed female who presents for evaluation of headache. Giovany Mayer CNP is the referring provider and the PCP. Chart Review: Patient with longstanding history of headache. MRI and MRA of the brain were performed in 2017 and were normal per documentation (images not available). Repeat MRI of the brain in 2020 was normal. Patient presents for evaluation of headaches. Patient describes 2 different types of headaches, see below. Headaches began many years ago, worsening after about 4 years ago. Headache 1: Pounding pain to the right side of the head, associated floaters prior to onset of head pain. Associated with difficulty speaking, confusion, numbness and tingling to the right face and right upper extremity. Associated photophobia, phonophobia, nausea and vomiting. Previously diagnosed as migraines. Occurs about 1 or 2 times a year. Can last multiple hours, previously treated with sumatriptan and rizatriptan, partial relief with these medications. Patient does note side effect of these medications including burning of the mouth. Patient has had multiple MRIs without any abnormality, MRA of the head without any abnormality. Patient does see optometry regularly, no abnormalities on dilated exam. Headache 2: Posterior pressure sensation to the bilateral head. Worse with neck manipulation, trigger includes pulling the neck or injury to the neck. Mild in nature, no associated symptoms. Relieved completely with Tylenol, lasting about 2 hours. Patient estimates about 2 of these headaches a week. Patient notes that she was started on Cymbalta on Thursday for recently diagnosed depression and anxiety. She has that she has had a headache since this, but notes that she did not want to mix caffeine in Cymbalta so she stopped all of her caffeine intake at the same time. Patient denies any history of stroke, no NE, no DVT or PE. Patient does take oral contraceptives, has been on the same pill since she was a teenager. No clotting history, no recent surgeries. Current Headache treatment Preventative: cymbalta Abortive: rizatriptan Medications effective? yes # of doses of abortive medications per month: just with migraines Previous Medications: Tylenol Cymbalta-started 1 week ago Headache Description Onset: teenage years headache 2, headache 1 began following Total headache days per month: 8 days of headache two Headache free days: Yes Duration of attacks: 2 hours, can occasionally last days Severity of headaches? mild Onset to Peak: gradually build over an hour Location: posterior bilaterally. Aura: before-spots Prodrome:none. Accompanying symptoms: see above Quality: Headache 1- pounding, headache 2-pressure. Worse with activity: No Triggers: Other headaches triggered by pulling neck. Cough/sneeze/valsalva as trigger: no Positional changes: No Most common time of day for headache to begin:late evening-headache 2. Time missed from work or school: only once Risk Factors Visual-Motion sensitivity: Yes since daughter was born Tobacco Use: No Alcohol Use: No Other substances: No Caffeine: Yes, pre-workout caffeine (200mg) with occasional coffee Neck Pain /Back Pain: Yes, neck pain Fibromyalgia: No History of Motor Vehicle Accident: No History of Traumatic Brain Injury and/or Concussion: Yes, this month, ran into door at work- concussion History of severe infection: No History of Syncope: No Obesity: No, Body mass index is 22 Family History Migraine or other headaches in the family: migraines- aunt, cousins, father Aneurysms in a first degree relative: No Brain tumors in the family: No Other neurological illness in the family: no ROS Review of Systems CONSTITUTIONAL: No reported fevers, chills, night sweats, or significant unintentional weight loss. EYES: No visual changes indicated. No eye pain or orbital swelling reported. HEENT: No hearing changes or vertiginous symptoms indicated. No history of nose bleeds reported. RESPIRATORY: No reported cough, wheezing and dyspnea. CARDIOVASCULAR: Negative for significant chest pain, and palpitations per report. GI: Negative for significant abdominal discomfort, blood in stools or black stools reported. No rece (more content not included)... [facility] 12-09-2022 Instructions Malorie Hooper PA-C - 12/09/2022 3:05 PM EST Preventative: Continue Cymbalta, try supplements noted below Abortive: Nurtec take with start of headache Physical therapy for neck pain Follow up in three months Headache Preventive Treatment: Please keep in mind that it takes 4-6 weeks for the medication to start working well and 2-3 months at the appropriate dose before deciding if it will be useful or not. If it is not helping at all by this time, then we will discuss other medications to try. Supplements may take 3-6 months until you see full effect. Natural supplements: Magnesium Oxide 500 mg at bed Coenzyme Q10 300 mg in AM Vitamin B2- 200 mg twice a day Feverfew 50 mg twice a day Vitamins and herbs that show potential Magnesium: Magnesium (250 mg twice a day or 500 mg at bed) has a relaxant effect on smooth muscles such as blood vessels. Individuals suffering from frequent or daily headache usually have low magnesium levels which can be increase with daily supplementation of 400-750 mg. Three trials found 40-90% average headache reduction when used as a preventative. Magnesium also demonstrated the benefit in menstrually related migraine. Magnesium is part of the messenger system in the serotonin cascade and it is a good muscle relaxant. It is also useful for constipation which can be a side effect of other medications used to treat migraine. Good sources include nuts, whole grains, and tomatoes. Magnesium comes in many different forms: Magnesium glycinate is a good choice for those with a sensitive stomach who have gastrointestinal side effects such as diarrhea with other forms of magnesium. It is anecdotally also helpful with anxiety and sleep. Magnesium threonate also has low risk of gastrointestinal side effects and anecdotally helpful with cognitive function and brain fog symptoms. Magnesium malate has low gastrointestinal side effects and is reportedly more energizing and anecdotally often helpful in fibromyalgia and chronic fatigue syndrome. Magnesium citrate is one of the most studied, popular, and well-absorbed forms of magnesium. It can also be mixed easily with liquids if you can't take pills. However, it comes with a higher risk of diarrhea and gastrointestinal side effects, although this could be helpful for those with constipation. Magnesium oxide is also well studied, cheap, and often used for heartburn and indigestion. However, it is not well absorbed and can have some laxative side effects as well, so can also be helpful for constipation. Riboflavin (vitamin B 2) 200 mg twice a day. This vitamin assists nerve cells in the production of ATP a principal energy storing molecule. It is necessary for many chemical reactions in the body. There have been at least 3 clinical trials of riboflavin using 400 mg per day all of which suggested that migraine frequency can be decreased. All 3 trials showed significant improvement in over half of migraine sufferers. The supplement is found in bread, cereal, milk, meat, and poultry. Most Americans get more riboflavin than the recommended daily allowance, however riboflavin deficiency is not necessary for the supplements to help prevent headache. Feverfew: Feverfew is a common garden herb ute to [place] and popular in [place] as a treatment for disorders typically controlled by aspirin. The mechanism of action is unknown but is believed to be related to a chemical called parthenolide which helps the body use serotonin more effectively. Serotonin helps prevent migraine and assists with resolution when it occurs. Parthenolide also inhibits the release of histamine which is linked to pain and inflammation. Consistency of active ingredients in different products can be a problem. Some formulations don't have the active ingredient (parthenolide) that prevents migraine. A parthenolide content of 0.2% is generally recommended. Typical dosage is one capsule 3 times a day. Coenzyme Q10: This is present in almost all cells in the body and is critical component for the conversion of energy. Recent studies have shown that a nutritional supplement of CoQ10 can reduce the frequency of migraine attacks by improving the energy production of cells as with riboflavin. Doses of 150 mg twice a day have been shown to be effective. Melatonin: Increasing evidence shows correlation between melatonin secretion and headache conditions. Melatonin supplementation has decreased headache intensity and duration. It is widely used as a sleep aid. Sleep is natures way of dealing with migraine. A dose of 3 mg is recommended to start for headaches including cluster headache. Higher doses up to 15 mg has been reviewed for use in Cluster headache and have been used. The rationale behind using melatonin for cluster is that many theories regarding the cause of Cluster headache center around the disruption of the normal circadian rhythm in the brain. This helps restore the normal circadian rhythm. Charley: Charley has a small amount of antihistamine and anti-inflammatory action which may help headache. It is primarily used for nausea and may aid in the absorption of other medications. HEADACHE DIET: Foods and beverages which may trigger migraine Note that only 20% of headache patients are food sensitive. You will know if you are food sensitive if you get a headache consistently 20 minutes to 2 hours after eating a certain food. Only cut out a food if it causes headaches, otherwise you might remove foods you enjoy! What matters most for diet is to eat a well balanced healthy diet full of vegetables and low fat protein, and to not miss meals. Chocolate, other sweets ALL cheeses except cottage and cream cheese Dairy products, yogurt, sour cream, ice cream Liver Meat extracts (Bovril, Marmite, meat tenderizers) Meats or fish which have undergone aging, fermenting, pickling or smoking. These include: Hotdogs,salami,Lox,sausage, mortadellas,smoked salmon, pepperoni, Pickled davis Pods of broad collins (Belarusian beans, Irish pea pods, German (nicholas) beans, yadav and navy beans Ripe avocado, ripe banana Yeast extracts or active yeast preparations such as Lopez's or Janny's (commercial bakes goods are permitted) Tomato based foods, pizza (lasagna, etc.) MSG (monosodium glutamate) is disguised as many things; look for these common aliases: Monopotassium glutamate Autolysed yeast Hydrolysed protein Sodium caseinate flavorings all natural preservatives Nutrasweet Avoid all other foods that convincingly provoke headaches. Headache Prevention Strategies: 1. Maintain a headache diary; learn to identify and avoid triggers. Common triggers include: Emotional triggers: Emotional/Upset family or friends Emotional/Upset occupation Business reversal/success Anticipation anxiety Crisis-serious Post-crisis periodNew job/position Physical triggers: Vacation Day Weekend Strenuous Exercise High Altitude Location New Move Day Physical Illness Oversleep/Not enough sleep Weather changes Light: Photophobia or light sesnitivity treatment involves a balance between desensitization and reduction in overly strong input. Use dark polarized glasses outside, but not inside. Avoid bright or fluorescent light, but do not dim environment to the point that going into a normally lit room hurts. Consider FL-41 tint lenses, which reduce the most irritating wavelengths without blocking too much light. These can be obtained at TheSedge.orgs.Relead or StarBlock.com.Relead Foods: see list above. 2. Limit use of acute treatments (zdxe-lko-zqwnwtg medications, triptans, etc.) to no more than 2 days per week or 10 days per month to prevent medication overuse headache (rebound headache). 3. Follow a regular schedule (including weekends and holidays): Don't skip meals. Eat a balanced diet. 8 hours of sleep nightly. Minimize stress. Exercise 30 minutes per day. Being overweight is associated with a 5 times increased risk of chronic migraine. Keep well hydrated and drink 6-8 glasses of water per day. 4. Initiate non-pharmacologic measures at the earliest onset of your headache. Rest and quiet environment. Relax and reduce stress. Atofaja1Zgczx is a free yasmeen that can instruct you on some simple relaxtion and breathing techniques. Http://[employer] is a free website that provides teaching videos on relaxation. Also, there are many apps that can be downloaded for mindful relaxation. An yasmeen called YOGA NIDRA will help walk you through mindfulness. Cold compresses. 5. Don't wait!! Take the maximum allowable dosage of prescribed medication at the first sign of migraine. 6. Compliance: Take prescribed medication regularly as directed and at the first sign of a migraine. 7. Communicate: Call your physician when problems arise, especially if your headaches change, increase in frequency/severity, or become associated with neurological symptoms (weakness, numbness, slurred speech, etc.). 8. Headache/pain management therapies: Consider various complementary methods, including medication, behavioral therapy, psychological counselling, biofeedback, massage therapy, acupuncture, dry needling, and other modalities. Such measures may reduce the need for medications. Counseling for pain management, where patients learn to function and ignore/minimize their pain, seems to work very well. 9. Recommend changing family's attention and focus away from patient's headaches. Instead, emphasize daily activities. If first question of day is 'How are your headaches/Do you have a headache today?', then patient will constantly think about headaches, thus making them worse. Goal is to re-direct attention away from headaches, toward daily activities and other distractions. 10. Helpful Websites: www.AmericanHeadacheSociety.org www.migrainetrust.org www.headaches.org www.migraine.org.uk www.achenet.org 11. HEADACHE EXPECTATIONS: There are many types of headaches, and only a rare few in which complete relief can be expected. In general, there is no cure for headache, especially migraine based headaches. There is nothing available that completely prevents headaches from occurring, breaking through, or having periodic flare-ups and fluctuations. Regardless of what you are using on a daily basis for prevention, episodic headaches should still be expected, and periods where frequency may escalate and fluctuate are unavoidable. There is no quick fix for most headaches. Furthermore, the longer you have had high frequency headaches (such as chronic daily headache), the longer it will likely take to expect any improvement. In fact, some people will never improve, regardless of how many medications or other treatments we try. Our treatment strategy is to evaluate for possible causes of your headache, although testing is usually always normal, even in cases of daily continuous headaches for years. Most types of headache such as migraine are electrical brain disorders (similar to how epilepsy is an electrical brain disorders). Therefore, there is no testing that will reveal this dysfunctional electrical circuitry such on MRI, or other testing. We try to find a medication that may help lessen the frequency and/or severity of your headaches. The goal is not to completely stop them from happening, although if that happens, great! Different people respond to different medications, and some people just don't respond to anything, so it's usually a matter of trying different options. We can not predict if or when exactly you will respond to a treatment that we provide. Preventive headache medications take 4-6 weeks to start working, and 2-3 months to see full effect, assuming you reach an effective dose. Therefore, calling or messaging frequently because you have a headache flare prior to the 3 month dieudonne is unlikely to change anything, and unfortunately there is nothing available that will expedite this, so please try to avoid this. Our recommendation will generally be to give it adequate time first. If you are unable to wait it out for medications to work, we can also try IV infusions for some temporary relief. O In general, the best that preventive medications or other treatments (including Botox) are able to offer in migraine management (variable in other headache types) is a 50% improvement in frequency and/or severity of headache. That is our goal, and any additional benefit is considered a bonus. Some people do significantly better than this, others do not get close to this. Therefore, if your headaches are not improving by at least 3 months on your preventive strategy, contact us and we can discuss further adjustments. Keep in mind that complete headache cure is not a realistic expectation. Our Team: The nursing staff, and medical assistants are a major part of YOUR TREATMENT TEAM and will be handling your phone calls, [employer] Messages and inquiries, if any. Unless explicitly told otherwise at the time of your office visit, your study results and ensuing treatment plans will be released via KickerPicker.com and discussed during your follow-up appointment. MyChart: Please ask the schedulers to give you an activation code. The main way of communication is by HoverWindhart rather than phone lines, so if you have not signed up, please do so. HoverWindhart is also the way that you can review your labs and testing. We are not able to contact everyone to tell them results are normal. If you do not hear back from us regarding testing you have had, it should be considered normal or within normal range. If you have any questions about the results, you are free to message us. HoverWindhart is meant for simple questions regarding medications, possible side effects, or other simple straight forward questions in limited sentences, rather than multiple paragraphs of discussion. [employer] is not meant for, or efficient for these complex questions, extensive questions, extensive medication adjustments, complex new symptoms or concerns. These issues beyond simple questions require a follow up visit with myself, one of our physician assistants, nurse practitioners, or a Virtual Visit via computer or smart phone, as detailed further down. Refills: Please pay attention to when your refills will need to be renewed. Due to the volume of phone calls daily, this could potentially take a few days, although we certainly try to honor your refill requests as soon as we can. You should call at least 1 week in advance of needing a refill to ensure you do not run out of medication. Keep in mind that refill requests on Fridays may not be filled until the following week. In regards to blood work, testing, and radiology reports these are released automatically to the patients. We do not comment on most testing on [employer] in a message or commentary unless there is a concern. You will not receive a message from me of the result unless there is a specific concern of the result I need you to address further in care with us or your primary medical team. Make sure to check your my chart email or yasmeen. As an international referral center for syncope, autonomic dysfunction, general neurology, headache care, neuromuscular disease, and other related conditions, seeing patients from across the world, we do not have the resource of time or staffing to address inquiries for accommodations. As such, we do not provide or complete requests for work accommodations, FMLA, disability, or other such forms. We recommend seeking guidance through your primary care provider for these requests. We are happy to provide our office notes from your visits and other tests or evaluations performed through our clinic, which can be made available upon request to assist you with this process. documented in this encounter [facility] 12-09-2022 History of Present illness Narrative Images from the original note were not included. Neurology Outpatient Clinic Date: December 09, 2022 Patient Name: Jes Fuentes Referring provider: Giovany Mayer [address] [place] [id number] Consult requested for headache by Giovany Mayer CNP. Recommendations will be communicated via shared medical record or US mail. Primary provider: [place]ía [place] [address] Reason for Evaluation: Headaches Subjective HPI Jes Fuentes is a 32 year old right-handed female who presents for evaluation of headache. Giovany Mayer CNP is the referring provider and the PCP. Chart Review: Patient with longstanding history of headache. MRI and MRA of the brain were performed in 2017 and were normal per documentation (images not available). Repeat MRI of the brain in 2020 was normal. Patient presents for evaluation of headaches. Patient describes 2 different types of headaches, see below. Headaches began many years ago, worsening after about 4 years ago. Headache 1: Pounding pain to the right side of the head, associated floaters prior to onset of head pain. Associated with difficulty speaking, confusion, numbness and tingling to the right face and right upper extremity. Associated photophobia, phonophobia, nausea and vomiting. Previously diagnosed as migraines. Occurs about 1 or 2 times a year. Can last multiple hours, previously treated with sumatriptan and rizatriptan, partial relief with these medications. Patient does note side effect of these medications including burning of the mouth. Patient has had multiple MRIs without any abnormality, MRA of the head without any abnormality. Patient does see optometry regularly, no abnormalities on dilated exam. Headache 2: Posterior pressure sensation to the bilateral head. Worse with neck manipulation, trigger includes pulling the neck or injury to the neck. Mild in nature, no associated symptoms. Relieved completely with Tylenol, lasting about 2 hours. Patient estimates about 2 of these headaches a week. Patient notes that she was started on Cymbalta on Thursday for recently diagnosed depression and anxiety. She has that she has had a headache since this, but notes that she did not want to mix caffeine in Cymbalta so she stopped all of her caffeine intake at the same time. Patient denies any history of stroke, no NE, no DVT or PE. Patient does take oral contraceptives, has been on the same pill since she was a teenager. No clotting history, no recent surgeries. Current Headache treatment Preventative: cymbalta Abortive: rizatriptan Medications effective? yes # of doses of abortive medications per month: just with migraines Previous Medications: Tylenol Cymbalta-started 1 week ago Headache Description Onset: teenage years headache 2, headache 1 began following Total headache days per month: 8 days of headache two Headache free days: Yes Duration of attacks: 2 hours, can occasionally last days Severity of headaches? mild Onset to Peak: gradually build over an hour Location: posterior bilaterally. Aura: before-spots Prodrome:none. Accompanying symptoms: see above Quality: Headache 1- pounding, headache 2-pressure. Worse with activity: No Triggers: Other headaches triggered by pulling neck. Cough/sneeze/valsalva as trigger: no Positional changes: No Most common time of day for headache to begin:late evening-headache 2. Time missed from work or school: only once Risk Factors Visual-Motion sensitivity: Yes since daughter was born Tobacco Use: No Alcohol Use: No Other substances: No Caffeine: Yes, pre-workout caffeine (200mg) with occasional coffee Neck Pain /Back Pain: Yes, neck pain Fibromyalgia: No History of Motor Vehicle Accident: No History of Traumatic Brain Injury and/or Concussion: Yes, this month, ran into door at work- concussion History of severe infection: No History of Syncope: No Obesity: No, Body mass index is 22 Family History Migraine or other headaches in the family: migraines- aunt, cousins, father Aneurysms in a first degree relative: No Brain tumors in the family: No Other neurological illness in the family: no ROS Review of Systems CONSTITUTIONAL: No reported fevers, chills, night sweats, or significant unintentional weight loss. EYES: No visual changes indicated. No eye pain or orbital swelling reported. HEENT: No hearing changes or vertiginous symptoms indicated. No history of nose bleeds reported. RESPIRATORY: No reported cough, wheezing and dyspnea. CARDIOVASCULAR: Negative for significant chest pain, and palpitations per report. GI: Negative for significant abdominal discomfort, blood in stools or black stools reported. No recent reported change in bowel habits. : No reported history of incontinence. No dark/cola colored urine reported. MUSCLOSKELETAL: No history of significant joint pain or swelling, or myalgias reported. SKIN: Negative for pertinent lesions, rash, and itching per report. HEMATOLOGY/ONCOLOGY: Negative for reported prolonged bleeding, bruising easily, and swollen nodes. ENDOCRINE: Negative for reported significant cold or heat intolerance, no reported goitrous neck swelling or polydipsia PSYCH: Depression and anxiety-recently started on cymbalta. No reported SI or HI. NEURO: Per HPI above. Sleep: 6 hours a night, sleeps soundly, Mood: normal, Energy: Low, Stress: High Medications: Current Outpatient Medications Medication Sig Dispense Refill ascorbic acid (VITAMIN C ORAL) Take 1 tablet by mouth once daily. MULTIVITAMIN ORAL Take 1 tablet by mouth once daily. BIOTIN ORAL Take 1 tablet by mouth once daily. DULoxetine (CYMBALTA) 20 mg capsule Take 1 capsule by mouth once daily. 30 capsule 1 Norgestimate-Ethinyl Estradiol 0.18/0.215/0.25 mg-25 mcg Take 1 tablet by mouth once daily. Take active pills only. Start a new pack every 3 weeks. 112 tablet 4 fluticasone-salmeterol HFA (ADVAIR) 230-21 mcg/actuation inhaler Inhale 2 Puffs as instructed twice daily. albuterol HFA (PROAIR HFA) 90 mcg/actuation inhaler Inhale 2 Puffs as instructed every 6 hours as needed. rimegepant (NURTEC ODT) 75 mg disintegrating tablet Take 1 tablet by mouth once daily as needed. 8 tablet 3 No current facility-administered medications for this visit. ALLERGIES Allergen Reactions Keflex [Cephalexin] Rash Penicillins Rash Past Medical History: PAST MEDICAL HISTORY Diagnosis Date Abnormal Pap smear of cervix Anxiety Asthma Eczema Mental disorder Family History: FAMILY HISTORY Problem Relation Age of Onset Hypertension Mother other (sleep apnea) Mother Heart Father MVP No Known Problems Maternal Grandmother Cancer Maternal Grandfather Asthma Paternal Grandmother Heart Paternal Grandmother CHF Asthma Paternal Grandfather Heart Paternal Grandfather CHF Also includes: none. 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 Head: Normocephalic Pulm: Breathing comfortably Neck: Supple Psych: Cooperative, appropriate affect Neurological Examination: Mental Status: Alert and Oriented to Place, Person, Time and Situation and Patient follows commands.. Language: Is intact to Comprehension, Fluency and Repetition Cranial Nerves: CNII: Visual acuity normal, visual liang full to confrontation CNIII, IV, : Pupils equal, round and reactive to light, full extraoccular movements, without nystagmus CN V: Facial sensation intact bilaterally to fine touch CN VII: Facial muscles symmetric and strong CN VIII: Hears finger rub well bilaterally CN IX: Gag Reflex not examined CN X: Palate elevates symmetrically CN XI: Full strength shoulder shrug bilaterally CN XII: Tongue protrusion full and midline Non-Dilated Fundiscopic Examination: No papilledema Motor Exam: Tone - Normal Tone noted in all extremities Bulk - Normal bulk noted in all muscles tested. Inspection - Normal, no fasciculations or tremors noted. Power: MUSCLES Upper Extremity RIGHT LEFT Deltoid 5/5 5/5 Biceps 5/5 5/5 Triceps 5/5 5/5 Wrist Extension 5/5 5/5 Wrist Flexion 5/5 5/5 Finger Flexion 5/5 5/5 Finger Extension 5/5 5/5 Finger Abd 5/5 5/5 Finger Add 5/5 5/5 MUSCLES Lower Extremity RIGHT LEFT Hip Flexion 5/5 5/5 Hip Extension 5/5 5/5 BiFem (Knee Flex) 5/5 5/5 Quads (Knee Ext) 5/5 5/5 Gastroc (Plantflx) 5/5 5/5 TibAnt (Dorsiflx) 5/5 5/5 FlxHLong (Toe Flex) 5/5 5/5 ExtHLong (Toe Ext) 5/5 5/5 Sensory Examination Sensation is intact to light touch, negative extinction to double simultaneous stimulation Reflexes Right Left Bicep 2/4 2/4 Tricep 2/4 2/4 BrRad 2/4 2/4 Knee 2/4 2/4 Ankle 2/4 2/4 Coordination: finger-to- nose-finger intact bilaterally and [id number]-[id number] intact bilaterally. Gait: Patient's gait is normal, can heel and toe walk and can tandem walk Romberg: Negative DATA REVIEWED Actual films/image/tracing reviewed and summarized as follows: MRI brain, MRA brain Old records reviewed and summarized as follows: [facility] records Assessment/Plan Assessment & Plan: Jes Fuentes is a 32 year old right-handed female with a history of anxiety, depression, migraine. Her examination demonstrates no neurologic abnormalities. Patient with 2 different headache complaints spanning many years. Most common headache occurs roughly 8 times a month, lasting a few hours and relieved completely with Tylenol. Patient notes this stems from the neck musculature, worse with neck movement, worse with straining the neck. This headache is not associated other symptoms, likely cervicogenic in nature. Will refer to physical therapy for further management. Second type of headache occurs 1-2 times a year, associated with aura, right-sided facial numbness and right-sided upper extremity numbness, difficulty speaking, slurred speech, confusion. MRI and MRI in the past have been without any abnormality. 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 She does have partial relief with this medication, but does have side effects. Discussed avoiding triptans as they are contraindicated in hemiplegic migraines. Will write for [facility] due to this contraindication. Patient recently started on Cymbalta for depression and anxiety. She notes having a headache since this but this is likely due to caffeine withdrawal as she stopped taking caffeine when she started Cymbalta. We will not trial any other preventative at this time, will give Cymbalta 3 months and reassess adding an additional medication. Discussed using supplements in addition to Cymbalta, specifically magnesium, B2, co-Q10. Discussed common side effects with the supplements, patient would like to try these and information education was printed and given to patient. Red flag signs and symptoms were discussed with patient, patient understands. No further imaging warranted at this time, patient has had multiple MRIs of the brain without any abnormality, MRA of the brain in 2018 was without any abnormality. Patient does see optometry, has not seen them in many years. Discussed due to vision symptoms with her headaches, encouraged annual visits. Patient agreeable to treatment plan of care at this time, all questions were answered. Patient to follow-up in 3 months or sooner should any symptoms change or worsen. Diagnoses and all orders for this visit: Cervicogenic headache - CONSULT TO PHYSICAL THERAPY; Future Hemiplegic migraine without status migrainosus, not intractable Other orders - rimegepant (NURTEC ODT) 75 mg disintegrating tablet; Take 1 tablet by mouth once daily as needed. She should return to see me in 3 months. I spent a total of 40 minutes on the date of the service which included preparing to see the patient, gbgf-[id number] patient care, completing clinical documentation, obtaining and/or reviewing separately obtained history, performing a medically appropriate examination, counseling and educating the patient/family/caregiver, and ordering medications, tests, or procedures. Malorie Hooper PA-C [facility] Neurology This document has been created with the use of voice recognition technology. It may contain inaccuracies: (e.g. misspellings, inaccurate syntax or word sense) that have escaped review. documented in this encounter [facility] 12-04-2022 Note HNO ID: [id number] Author: Giovany Mayer APRN.MANAGER DECISION SUPPORT Service: ? Author Type: Nurse Practitioner Type: Progress Notes Filed: 12/04/2022 12:43 PM Note Text: VIRTUAL VISIT PROGRESS NOTE This is a virtual visit using [email or web address] video visit. It required patient-provider interaction for the medical decision making as documented below. Jes Fuentes is a 32 year old female seen for anxiety. Today: Anxiety-has been going on for a long time and pushing things off. Easily irritated-both at work, at home. On edge all the time. Has had some instances like recently at work where she felt tearful all day long for no reason. Has gotten worse since having her daughter 3.5 years ago. Has considered counseling. Not sure when she would be able to squeeze this in. Has tried vitamin D3, Ashwaganda Root. Neither of these have helped whatsoever. Has zero interest in intercourse. Not much interest in anything. HISTORY REVIEWED (electronic chart updated): PAST MEDICAL HISTORY Diagnosis Date Abnormal Pap smear of cervix Anxiety Asthma Eczema Mental disorder PAST SURGICAL HISTORY Procedure Laterality Date LAPAROSCOPIC APPENDECTOMY 01/30/2014 LEEP PROCEDURE ([facility])_*FL VEIN SURGERY (SPECIFY LOCATION) HX 12/14/2020 right leg FAMILY HISTORY Problem Relation Age of Onset Hypertension Mother other (sleep apnea) Mother Heart Father MVP No Known Problems Maternal Grandmother Cancer Maternal Grandfather Asthma Paternal Grandmother Heart Paternal Grandmother CHF Asthma Paternal Grandfather Heart Paternal Grandfather CHF Social History Tobacco Use Smoking status: Never Smokeless tobacco: Never Vaping Use Vaping Use: Never used Substance Use Topics Alcohol use: Not Currently Drug use: No Current Outpatient Medications Medication Sig Norgestimate-Ethinyl Estradiol 0.18/0.215/0.25 mg-25 mcg Take 1 tablet by mouth once daily. Take active pills only. Start a new pack every 3 weeks. fluticasone-salmeterol HFA (ADVAIR HFA) 230-21 mcg/actuation inhaler Inhale 2 Puffs as instructed twice daily. albuterol HFA (PROAIR HFA) 90 mcg/actuation inhaler Inhale 2 Puffs as instructed every 6 hours as needed. No current facility-administered medications for this visit. ALLERGIES Allergen Reactions Keflex [Cephalexin] Rash Penicillins Rash REVIEW OF SYSTEMS: All other ROS: negative As noted in HPI PHYSICAL EXAMINATION: VIDEO EXAM: (if completed, performed via video enabled technology) General: pleasant, cooperative Psychiatric: tearful, no SI/HI ASSESSMENT: (R45.4) Irritability (primary encounter diagnosis) (F41.8) Situational anxiety (F41.8) Depression with anxiety (Z13.29) Screening for thyroid disorder (Z13.21) Encounter for vitamin deficiency screening PLAN: Begin daily Cymbalta. Consider counseling-interested in virtual due to time constraints. Follow up 4-6 weeks, sooner if necessary. Labs to r/o contributing factors. Giovany Mayer APRN.[facility] 12-04-2022 History of Present illness Narrative VIRTUAL VISIT PROGRESS NOTE This is a virtual visit using [email or web address] video visit. It required patient-provider interaction for the medical decision making as documented below. Jes Fuentes is a 32 year old female seen for anxiety. Today: Anxiety-has been going on for a long time and pushing things off. Easily irritated-both at work, at home. On edge all the time. Has had some instances like recently at work where she felt tearful all day long for no reason. Has gotten worse since having her daughter 3.5 years ago. Has considered counseling. Not sure when she would be able to squeeze this in. Has tried vitamin D3, Ashwaganda Root. Neither of these have helped whatsoever. Has zero interest in intercourse. Not much interest in anything. HISTORY REVIEWED (electronic chart updated): PAST MEDICAL HISTORY Diagnosis Date Abnormal Pap smear of cervix Anxiety Asthma Eczema Mental disorder PAST SURGICAL HISTORY Procedure Laterality Date LAPAROSCOPIC APPENDECTOMY 01/30/2014 LEEP PROCEDURE ([facility])_*FL VEIN SURGERY (SPECIFY LOCATION) HX 12/14/2020 right leg FAMILY HISTORY Problem Relation Age of Onset Hypertension Mother other (sleep apnea) Mother Heart Father MVP No Known Problems Maternal Grandmother Cancer Maternal Grandfather Asthma Paternal Grandmother Heart Paternal Grandmother CHF Asthma Paternal Grandfather Heart Paternal Grandfather CHF Social History Tobacco Use Smoking status: Never Smokeless tobacco: Never Vaping Use Vaping Use: Never used Substance Use Topics Alcohol use: Not Currently Drug use: No Current Outpatient Medications Medication Sig Norgestimate-Ethinyl Estradiol 0.18/0.215/0.25 mg-25 mcg Take 1 tablet by mouth once daily. Take active pills only. Start a new pack every 3 weeks. fluticasone-salmeterol HFA (ADVAIR HFA) 230-21 mcg/actuation inhaler Inhale 2 Puffs as instructed twice daily. albuterol HFA (PROAIR HFA) 90 mcg/actuation inhaler Inhale 2 Puffs as instructed every 6 hours as needed. No current facility-administered medications for this visit. ALLERGIES Allergen Reactions Keflex [Cephalexin] Rash Penicillins Rash REVIEW OF SYSTEMS: All other ROS: negative As noted in HPI PHYSICAL EXAMINATION: VIDEO EXAM: (if completed, performed via video enabled technology) General: pleasant, cooperative Psychiatric: tearful, no SI/HI ASSESSMENT: (R45.4) Irritability (primary encounter diagnosis) (F41.8) Situational anxiety (F41.8) Depression with anxiety (Z13.29) Screening for thyroid disorder (Z13.21) Encounter for vitamin deficiency screening PLAN: Begin daily Cymbalta. Consider counseling-interested in virtual due to time constraints. Follow up 4-6 weeks, sooner if necessary. Labs to r/o contributing factors. Giovany Mayer APRN.CNP documented in this encounter [facility] 07-01-2022 Miscellaneous Notes New rx sent. Stephania Eid APRN.[facility]O documented in this encounter [facility] 04-16-2022 Instructions Giovany Mayer APRN.CNP - 04/16/2022 5:09 PM EDT Look into the Nuvaring, let us know if you're interested in trying this. documented in this encounter [facility] 04-16-2022 History of Present illness Narrative Chief Complaint Patient presents with: Physical HPI Jes Fuentes is a 31 year old female who presents here today for Above Complaints. Today: Due for a physical today. Wondering if she should be on control or any other options. Surgery 2020 had vein surgery on her right leg. Still doesn't have much feeling there. Denies any other complaints or concerns. Past medical history, appointments, medications, allergies reviewed. Previous Medical History PAST MEDICAL HISTORY Diagnosis Date Abnormal Pap smear of cervix Anxiety Asthma Eczema Mental disorder Previous Surgical History PAST SURGICAL HISTORY Procedure Laterality Date LAPAROSCOPIC APPENDECTOMY 01/30/2014 LEEP PROCEDURE ([facility])_*FL VEIN SURGERY (SPECIFY LOCATION) HX 12/14/2020 right leg Family History FAMILY HISTORY Problem Relation Age of Onset Hypertension Mother other (sleep apnea) Mother Heart Father MVP No Known Problems Maternal Grandmother Cancer Maternal Grandfather Asthma Paternal Grandmother Heart Paternal Grandmother CHF Asthma Paternal Grandfather Heart Paternal Grandfather CHF Patient Allergies ALLERGIES Allergen Reactions Keflex [Cephalexin] Rash Penicillins Rash Current Medications Current Outpatient Medications on File Prior to Visit Medication Sig fluticasone-salmeterol HFA (ADVAIR HFA) 230-21 mcg/actuation inhaler Inhale 2 Puffs as instructed twice daily. ORTHO TRI-CYCLEN LO, 28, 0.18/0.215/0.25 mg-25 mcg Take 1 tablet by mouth once daily. albuterol HFA (PROAIR HFA) 90 mcg/actuation inhaler Inhale 2 Puffs as instructed every 6 hours as needed. fluticasone-salmeterol (ADVAIR) 500-50 mcg/dose dsdv TWICE A DAY No current facility-administered medications on file prior to visit. Social History Social History Tobacco Use Smoking status: Never Smoker Smokeless tobacco: Never Used Vaping Use Vaping Use: Never used Substance Use Topics Alcohol use: Not Currently Drug use: No Review of Symptoms REVIEW OF SYSTEMS see HPI, otherwise negative EXAM: BP 110/78 (BP Site: Left Arm, BP Position: Sitting, BP Cuff Size: Regular Adult) Pulse 76 Ht 172.5 cm (5' 7.91 ) Wt 70.1 kg (154 lb 9.6 oz) LMP 02/04/2022 SpO2 98% BMI 23.57 kg/m General Appearance: Well appearing, alert, in no acute distress, well-hydrated, well nourished.. Skin: Skin color, texture, turgor normal, no suspicious rashes or lesions. Head: Normocephalic, no masses, lesions, tenderness or abnormalities. Ears: External ears normal, canals clear. Nose/Sinuses: Nares normal, septum midline, mucosa normal, no drainage or sinus tenderness. Oropharynx: Lips, mucosa, and tongue normal, teeth and gums normal, oropharynx normal. Neck: Supple, no adenopathy; thyroid symmetric, normal size, no bruits. Lungs: Lungs clear to auscultation. No wheezing, rhonchi, rales.. Heart: RRR without murmur, gallop, or rubs. No ectopy. Abdomen: Normal abdominal exam, Abdomen soft, non-tender. Bowel sounds normal. No masses, organomegaly. Extremities: No deformities, edema, skin discoloration, clubbing or cyanosis. Good capillary refill. . Musculoskeletal: No joint swelling, deformity, or tenderness. Peripheral Pulses: Normal. Lymph Nodes: No cervical lymphadenopathy and No supraclavicular lymphadenopathy. Health Maintenance List HEPATITIS C SCREENING Never done COVID-19 VACCINE(3 - Booster for Moderna series) due on 04/19/2021 DEPRESSION SCREENING due on 04/14/2023 PAP TESTING due on 12/19/2026 HPV TESTING due on 12/19/2026 DTAP,TDAP,TD(2 - Td or Tdap) due on 04/19/2029 INFLUENZA Completed HIV SCREENING Completed Data reviewed Previous records, office notes ASSESSMENT/PLAN: 1. Well adult exam - ICD9: V70.0, ICD10: Z00.00 (primary diagnosis) - Counseled on healthy diet and regular exercise - Calcium intake with supplements or by diet of 1000 mg/day for under 50, 8546-6388 mg/day for 50+ - Follow up for annual exam in one year- Counseled on healthy diet and regular exercise - Calcium intake with supplements or by diet of 1000 mg/day for under 50, 5424-1219 mg/day for 50+ - CBC - COMP METABOLIC PANEL - TSH BLD - IRON + TIBC - FERRITIN BLD - VITAMIN D 25 HYDROXY 2. Screening for thyroid disorder - ICD9: V77.0, ICD10: Z13.29 - TSH BLD 3. Encounter for vitamin deficiency screening - ICD9: V77.99, ICD10: Z13.21 - VITAMIN D 25 HYDROXY Giovany Mayer APRN.HERNANDO documented in this encounter [facility] 03-13-2022 Miscellaneous Notes Patient had mammogram yesterday Patient is only 31 years old. Does she still need a bilateral? Patricia Swann RN Please put in a bilateral Diagnostic order . Over 35 years of age its bilateral unless she has had one somewhere else. thank you . documented in this encounter [facility] 03-12-2022 History of Present illness Narrative Radiology Service Progress Note PATIENT NAME: Jes Fuentes DATE OF SERVICE: March 12, 2022 TIME: 4:12 PM PATIENT IDENTITY VERIFICATION COMPLETED USING TWO (2) IDENTIFIERS: Name and Date of confirmed by patient verbally. FALL SCREENING: Has the patient had 2 falls in the last year or 1 fall with injury or currently using an Ambulatory Assistive Device (Walker, Cane, Wheelchair, Crutches, etc.)? No PATIENT GENDER DATA: Female. status: : No status: N/A PATIENT RELEVANT IMPLANT DATA REVIEWED: Not Applicable RADIOLOGY DEPARTMENT: Ultrasound PERIPHERAL IV DATA: Not applicable SIGNED BY: Jes Shea RDMS RVT March 12, 2022 4:12 PM documented in this encounter [facility] 03-12-2022 History of Present illness Narrative Radiology Service Progress Note PATIENT NAME: Jes Fuentes DATE OF SERVICE: March 12, 2022 TIME: 4:12 PM PATIENT IDENTITY VERIFICATION COMPLETED USING TWO (2) IDENTIFIERS: Name and Date of confirmed by patient verbally. FALL SCREENING: Has the patient had 2 falls in the last year or 1 fall with injury or currently using an Ambulatory Assistive Device (Walker, Cane, Wheelchair, Crutches, etc.)? No PATIENT GENDER DATA: Female. status: : No status: NO. PATIENT RELEVANT IMPLANT DATA REVIEWED: Not Applicable RADIOLOGY DEPARTMENT: Mammography PERIPHERAL IV DATA: Not applicable SIGNED BY: Scott Lopez March 12, 2022 4:12 PM documented in this encounter [facility] 02-10-2022 History of Present illness Narrative BREAST LUMP HISTORY: This is a 31 year old female Presents with breast mass left Mass has been present for 1 months Tenderness No Change in sizeNo Any history breast mass No Caffeine use Yes Last mammogramnever Any previous breast surgery No Any family history breast disease/ breast cancer No OB History T1 L1 SAB0 IAB0 Ectopic0 Multiple0 Live Births1 PAST MEDICAL HISTORY Diagnosis Date Abnormal Pap smear of cervix Anxiety Asthma Eczema Mental disorder PAST SURGICAL HISTORY Procedure Laterality Date LAPAROSCOPIC APPENDECTOMY 01/30/2014 LEEP PROCEDURE ([facility] [employer] [facility])_*FL VEIN SURGERY (SPECIFY LOCATION) HX 12/14/2020 right leg FAMILY HISTORY Problem Relation Age of Onset Hypertension Mother other (sleep apnea) Mother Heart Father MVP No Known Problems Maternal Grandmother Cancer Maternal Grandfather Asthma Paternal Grandmother Heart Paternal Grandmother CHF Asthma Paternal Grandfather Heart Paternal Grandfather CHF SOCIAL HISTORY Social History Tobacco Use Smoking status: Never Smoker Smokeless tobacco: Never Used Vaping Use Vaping Use: Never used Substance Use Topics Alcohol use: Not Currently Drug use: No PAST SURGICAL HISTORY Procedure Laterality Date LAPAROSCOPIC APPENDECTOMY 01/30/2014 LEEP PROCEDURE ([facility] [employer] [facility])_*FL VEIN SURGERY (SPECIFY LOCATION) HX 12/14/2020 right leg Current Outpatient Medications Medication Sig ORTHO TRI-CYCLEN LO, 28, 0.18/0.215/0.25 mg-25 mcg Take 1 tablet by mouth once daily. fluticasone-salmeterol (ADVAIR) 500-50 mcg/dose dsdv TWICE A DAY albuterol HFA (PROAIR HFA) 90 mcg/actuation inhaler Inhale 2 Puffs as instructed every 6 hours as needed. No current facility-administered medications for this visit. Allergies As of Date: 02/10/2022 Allergen Noted Reaction KEFLEX [CEPHALEXIN] 01/27/2014 Rash PENICILLINS 01/27/2014 Rash Fully Assessed 02/10/2022 EXAMINATION: There is no concerning cervical, supraclavicular, or axillary lymphadenopathy. On the right are no dominant masses, skin changes or nipple discharge. On the left there is dominant fullness in the upper inner quadrant at the 10 o'clock location, but no skin changes or nipple discharge. IMPRESSION: left breast mass. PLAN: No orders found for this visit on 02/10/22. A discussion was held with the patient and patient who agrees with Imaging Stephania Eid APRN.HERNANDO Medical Decision Making: Problems: Moderate: New problem with uncertain prognosis Data: Unique test(s) ordered: 2 Risk: Low: Low risk from testing/treatment Medical Decision Making Level: 3 - Low documented in this encounter [facility] documented as of this encounter (statuses as of 09/29/2023) [facility] History of Past illness Narrative* Problem Noted Date Resolved Date Current with histo ry of spontaneous during prior 11/04/2018 03/08/2019 Overview: 11/04/2018Patient has a history of a miscarriage 12/2017. She desires quantitative HCG's. Ordered by Dr Lindquist. She also requests to take a baby ASA and Dr Lindquist did okay that as well. Discussed grieivng process. [facility] Support group information given. TKRN documented as of this encounter (statuses as of 02/10/2022) [facility] History of Past illness Narrative* Problem Noted Date Resolved Date Current with histo ry of spontaneous during prior 11/04/2018 03/08/2019 Overview: 11/04/2018Patient has a history of a miscarriage 12/2017. She desires quantitative HCG's. Ordered by Dr Lindquist. She also requests to take a baby ASA and Dr Lindquist did okay that as well. Discussed grieivng process. [facility] Support group information given. TKRN documented as of this encounter (statuses as of 02/10/2022) [facility] History of Past illness Narrative* Problem Noted Date Resolved Date Current with histo ry of spontaneous during prior 11/04/2018 03/08/2019 Overview: 11/04/2018Patient has a history of a miscarriage 12/2017. She desires quantitative HCG's. Ordered by Dr Lindquist. She also requests to take a baby ASA and Dr Lindquist did okay that as well. Discussed grieivng process. [facility] Support group information given. TKRN documented as of this encounter (statuses as of 03/13/2022) [facility] History of Past illness Narrative* Problem Noted Date Resolved Date Current with histo ry of spontaneous during prior 11/04/2018 03/08/2019 Overview: 11/04/2018Patient has a history of a miscarriage 12/2017. She desires quantitative HCG's. Ordered by Dr Lindquist. She also requests to take a baby ASA and Dr Lindquist did okay that as well. Discussed grieivng process. [facility] Support group information given. TKRN documented as of this encounter (statuses as of 03/13/2022) [facility] History of Past illness Narrative* Problem Noted Date Resolved Date Current with histo ry of spontaneous during prior 11/04/2018 03/08/2019 Overview: 11/04/2018Patient has a history of a miscarriage 12/2017. She desires quantitative HCG's. Ordered by Dr Lindquist. She also requests to take a baby ASA and Dr Lindquist did okay that as well. Discussed grieivng process. [facility] Support group information given. TKRN documented as of this encounter (statuses as of 03/13/2022) [facility] History of Past illness Narrative* Problem Noted Date Resolved Date Current with histo ry of spontaneous during prior 11/04/2018 03/08/2019 Overview: 11/04/2018Patient has a history of a miscarriage 12/2017. She desires quantitative HCG's. Ordered by Dr Lindquist. She also requests to take a baby ASA and Dr Lindquist did okay that as well. Discussed grieivng process. [facility] Support group information given. TKRN documented as of this encounter (statuses as of 04/16/2022) [facility] History of Past illness Narrative* Problem Noted Date Resolved Date Current with histo ry of spontaneous during prior 11/04/2018 03/08/2019 Overview: 11/04/2018Patient has a history of a miscarriage 12/2017. She desires quantitative HCG's. Ordered by Dr Lindquist. She also requests to take a baby ASA and Dr Lindquist did okay that as well. Discussed grieivng process. [facility] Support group information given. TKRN documented as of this encounter (statuses as of 07/01/2022) [facility] History of Past illness Narrative* Problem Noted Date Resolved Date Current with histo ry of spontaneous during prior 11/04/2018 03/08/2019 Overview: 11/04/2018Patient has a history of a miscarriage 12/2017. She desires quantitative HCG's. Ordered by Dr Lindquist. She also requests to take a baby ASA and Dr Lindquist did okay that as well. Discussed grieivng process. [facility] Support group information given. TKRN documented as of this encounter (statuses as of 12/04/2022) [facility] History of Past illness Narrative* Problem Noted Date Resolved Date Current with histo ry of spontaneous during prior 11/04/2018 03/08/2019 Overview: 11/04/2018Patient has a history of a miscarriage 12/2017. She desires quantitative HCG's. Ordered by Dr Lindquist. She also requests to take a baby ASA and Dr Lindquist did okay that as well. Discussed grieivng process. [facility] Support group information given. TKRN documented as of this encounter (statuses as of 12/09/2022) [facility] History of Past illness Narrative* Problem Noted Date Resolved Date Current with histo ry of spontaneous during prior 11/04/2018 03/08/2019 Overview: 11/04/2018Patient has a history of a miscarriage 12/2017. She desires quantitative HCG's. Ordered by Dr Lindquist. She also requests to take a baby ASA and Dr Lindquist did okay that as well. Discussed grieivng process. [facility] Support group information given. TKRN documented as of this encounter (statuses as of 01/08/2023) [facility] History of Past illness Narrative* Problem Noted Date Resolved Date Current with histo ry of spontaneous during prior 11/04/2018 03/08/2019 Overview: 11/04/2018Patient has a history of a miscarriage 12/2017. She desires quantitative HCG's. Ordered by Dr Lindquist. She also requests to take a baby ASA and Dr Lindquist did okay that as well. Discussed grieivng process. [facility] Support group information given. TKRN documented as of this encounter (statuses as of 01/13/2023) [facility] History of Past illness Narrative* Problem Noted Date Resolved Date Current with histo ry of spontaneous during prior 11/04/2018 03/08/2019 Overview: 11/04/2018Patient has a history of a miscarriage 12/2017. She desires quantitative HCG's. Ordered by Dr Lindquist. She also requests to take a baby ASA and Dr Lindquist did okay that as well. Discussed grieivng process. [facility] Support group information given. TKRN documented as of this encounter (statuses as of 01/19/2023) [facility] History of Past illness Narrative* Problem Noted Date Resolved Date Current with histo ry of spontaneous during prior 11/04/2018 03/08/2019 Overview: 11/04/2018Patient has a history of a miscarriage 12/2017. She desires quantitative HCG's. Ordered by Dr Lindquist. She also requests to take a baby ASA and Dr Lindquist did okay that as well. Discussed grieivng process. [facility] Support group information given. TKRN documented as of this encounter (statuses as of 03/26/2023) [facility] History of Past illness Narrative* Problem Noted Date Diagnosed Date Resolved Date Current with histo ry of spontaneous during prior 11/04/2018 03/08/20 19 Overview: 11/04/2018Patient has a history of a miscarriage 12/2017. She desires quantitative HCG's. Ordered by Dr Lindquist. She also requests to take a baby ASA and Dr Lindquist did okay that as well. Discussed grieivng process. [facility] Support group information given. TKRN documented as of this encounter (statuses as of 04/27/2023) [facility] History of Past illness Narrative* Problem Noted Date Diagnosed Date Resolved Date Current with histo ry of spontaneous during prior 11/04/2018 03/08/20 19 Overview: 11/04/2018Patient has a history of a miscarriage 12/2017. She desires quantitative HCG's. Ordered by Dr Lindquist. She also requests to take a baby ASA and Dr Lindquist did okay that as well. Discussed grieivng process. [facility] Support group information given. TKRN documented as of this encounter (statuses as of 05/19/2023) [facility] History of Past illness Narrative* Problem Noted Date Diagnosed Date Resolved Date Current with histo ry of spontaneous during prior 11/04/2018 03/08/20 19 Overview: 11/04/2018Patient has a history of a miscarriage 12/2017. She desires quantitative HCG's. Ordered by Dr Lindquist. She also requests to take a baby ASA and Dr Lindquist did okay that as well. Discussed grieivng process. [facility] Support group information given. TKRN documented as of this encounter (statuses as of 05/28/2023) [facility] History of Past illness Narrative* Problem Noted Date Diagnosed Date Resolved Date Current with histo ry of spontaneous during prior 11/04/2018 03/08/20 19 Overview: 11/04/2018Patient has a history of a miscarriage 12/2017. She desires quantitative HCG's. Ordered by Dr Lindquist. She also requests to take a baby ASA and Dr Lindquist did okay that as well. Discussed grieivng process. [facility] Support group information given. TKRN Mental disorder 06/16/2023 documented as of this encounter (statuses as of 06/17/2023) [facility] History of Past illness Narrative* Problem Noted Date Diagnosed Date Resolved Date Current with histo ry of spontaneous during prior 11/04/2018 03/08/20 19 Overview: 11/04/2018Patient has a history of a miscarriage 12/2017. She desires quantitative HCG's. Ordered by Dr Lindquist. She also requests to take a baby ASA and Dr Lindquist did okay that as well. Discussed grieivng process. [facility] Support group information given. TKRN Mental disorder 06/16/2023 documented as of this encounter (statuses as of 07/14/2023) [facility] Mass of upper inner quadrant of left breast- Primary Encounter for screening for COVID-19 [facility] of upper inner quadrant of left [facility] Mass of upper inner quadrant of left breast [facility] Diagnosis Well adult exam- Primary Routine general medical examination at a health care facility Screening for thyroid disorder Encounter for vitamin deficiency screening Screening for other and unspecified endocrine, nutritional, metabolic, and immunity disorders [facility] Diagnosis Irritability- Primary Situational anxiety Other anxiety states Depression with anxiety Dysthymic disorder Screening for thyroid disorder Encounter for vitamin deficiency screening Screening for other and unspecified endocrine, nutritional, metabolic, and immunity disorders [facility] Diagnosis Cervicogenic headache- Primary Headache Hemiplegic migraine without status migrainosus, not intractable Hemiplegic migraine, without mention of intractable migraine without mention of status migrainosus [facility] Diagnosis Irritability- Primary Situational anxiety Other anxiety states Depression with anxiety Dysthymic disorder Hair loss Alopecia, unspecified Fatigue, unspecified type [facility] Diagnosis Encounter for gynecological examination (general) (routine) without abnormal findings- Primary Encounter for surveillance of contraceptive pills Surveillance of previously prescribed contraceptive pill Need for prophylactic vaccination/inoculation against viral disease Need for prophylactic vaccination and inoculation against other viral diseases [facility] Diagnosis Irritability Situational anxiety Other anxiety states Depression with anxiety Dysthymic disorder documented in this encounter [facility] note* Diagnosis Irritability Situational anxiety Other anxiety states Depression with anxiety Dysthymic disorder documented in this encounter [facility] note* Diagnosis Cervicogenic headache- Primary Headache Hemiplegic migraine without status migrainosus, not intractable Hemiplegic migraine, without mention of intractable migraine without mention of status migrainosus documented in this encounter [facility] note* Diagnosis Encounter for cosmetic surgery- Primary 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 note* Diagnosis Mild intermittent asthma without complication- Primary Unspecified asthma Seasonal allergies Allergic rhinitis, cause unspecified documented in this encounter [facility] note* Diagnosis Cervicogenic headache- Primary Headache documented in this encounter [facility] for referral (narrative)* Diagnostic Procedure Only (Routine) - Pending Review Specialty Diagnoses / Procedures Referred By Marie spain Referred To Contact [facility] Diagnoses Mass of upper inner quadrant of left breast Procedures US BREAST LTD LT US BREAST UNI REAL TIME WITH IMAGE LIMITED Stephania Eid APRN.MANAGER DECISION SUPPORT [address] [place] [address] [facility] [address] [place] [address] Referral ID Status Reason Start Date Expiration Date Visits Requested Visits Authorized [id number] Pending Review Auto-Generat ed Referral 02/10/2022 03/12/2023 1 1 * Diagnostic Procedure Only (Routine) - Authorized Specialty Diagnoses / Procedures Referred By Marie spain Referred To Contact [facility] Diagnoses Mass of upper inner quadrant of left breast Procedures WALI DIAGNOSTIC LT DIAGNOSTIC MAMMOGRAPHY COMPUTER-AIDED DETCJ UNI Stephania Eid APRN.CNP [address] [place] [address] [facility] [address] [place] [address] Referral ID Status Reason Start Date Expiration Date Visits Requested Visits Authorized [id number] Authorized Auto-Generat ed Referral 02/10/2022 03/12/2023 1 1 [facility] Diagnostic Procedure Only (Routine) - Closed Specialty Diagnoses / Procedures Referred By Marie spain Referred To Contact [facility] IMAGING Diagnoses Mass of upper inner quadrant of left breast Procedures US BREAST LTD LT US BREAST UNI REAL TIME WITH IMAGE LIMITED Stephania Eid APRN.CNP [address] [place] [address] [facility] [address] [place] [address] Referral ID Status Reason Start Date Expiration Date V isits Requested Visits Authorized [id number] Closed Auto-Generate d Referral 02/10/2022 03/12/2023 1 1 [facility] Discharge Instructions * Instructions* Marlyn Leiva RN - 12/07/2020 BRING YOUR RESCUE INHALER WITH YOU TO SURGERY ARRIVE 2 HOURS PRIOR TO SURGERY BE AT THE HOSPITAL AT Check in at registration using photo ID and insurance card Have a responsible adult that will be able to take you home and will be able to stay with you when you are home. NO FOOD AFTER MIDNIGHT THE NIGHT BEFORE SURGERY This includes candy, gum, and mints MAY have CLEAR LIQUIDS (WATER, APPLE JUICE, CRANBERRY JUICE, BLACK COFFEE, TEA, CARBONATED POP GATORADE) To drink until arrival time for surgery Wear loose comfortable clean clothing that you can go home in Leave all jewelry, contact lenses and valuables at home ONLY ONE visitor is permitted at this time Bring printed medication list with you Write the date and times of last dose DO NOT USE alcohol, recreational drugs or tobacco products for 24 hours before surgery Please write down any questions that you may have for your surgeon, anesthesiologist, Etc. Do not take ibuprofen 24 hours before surgery. No aleve 3 days before surgery. May take tylenol forpain if needed HOLD MULTIVITAMINS FOR 5 DAYS BEFORE SURGERY * Attachments The following attachments cannot be sent through Care Everywhere. * Vein Ligation and Stripping: Post-op (Belarusian) * Vein Ligation and Stripping: Pre-op (Belarusian) documented in this encounter* Instructions* Sanjiv Cohen MD - 12/14/2020 Varicose Vein Ablation Home Going Instructions After Surgery: Your surgeon will give you specific instructions to follow, however, in general follow the steps listed below upon discharge. ? You may experience bruising, swelling, and discomfort in your leg(s). These symptoms can be expected. Pain medication will be prescribed at discharge. ? Elevate your legs when sitting or lying down. Use pillows to raise your feet higher than the level of the heart. ? Steadily increase your activity. You are NOT to be on bed rest. Wound Care: ? Keep the incision area clean and dry ? After 24 hours you may remove the compression wraps. ? Wear the keisha wraps during the day over the next 3-4 days, you may remove them at night. ? To apply the keisha wraps start at the top of the incision site and work down toward the toes, ensure to include entire foot. ? You may shower. Allow the soap and water to run over the incision area, do not scrub. Do not use lotion over the incision site. ? Look at the incisions daily to become familiar with any changes or concerns. ? If Steri-Strips are directly over each incision, these may being to peel off at which time you may trim or remove them. Pain Medication: ? You will be prescribed pain medication after your procedure at the time of discharge. ? Take as prescribed. ? Do Not Drive while taking a prescription pain medication. ? Please note that constipation is a side effect of prescription pain medication and using a stool softener may reduce constipation. ? Call a day prior to running out of pain medication. There will be NO REFILLS on pain medication after office hours (M-F 8:30a-5:00p). Have your medication bottle available to confirm medication, dosage, and Rx number and phone number of the pharmacy. Follow-Up: ? The office nurse will try to call you the day after your surgery to schedule your 2 week follow-up appointment. ? Please call the office if you do not hear from the office nurse. When to call the Doctor: ? If you have an increase in swelling after the initial 48 hours ? Redness ? Warmth at or around the incision site. ? Sudden pain. ? Bleeding ? Foul odor from the incision site. ? Coldness or numbness to the leg/foot. Please call the office if you experience these symptoms or have any questions or concerns! documented in this encounter Summary Purpose Family History No Family History Records FoundNo Family History Records FoundNo Family History Records FoundNo Family History Records Found Advance Directives No Advanced Directives Records FoundLatest Code Status on File Code Status Date Activated Date Inactivated Comments Full Code 12/14/2020 9:18 AM Latest Code Status on File Code Status Date Activated Date Inactivated Comments Full Code 05/28/2023 9:40 AM 05/28/2023 8:26 PM Latest Code Status on File Code Status Date Activated Date Inactivated Comments Full Code 05/28/2023 9:40 AM 05/28/2023 8:26 PM History of Present Illness * Maria Del Carmen Neil RN - 12/14/2020 12:47 PM EST Discharge information given to the patient. Patient and family verbalized understanding of information. All questions were answered before discharge. Patient ambulated, denies dizziness or nausea. Tolerating PO fluids and crackers. Vital signs are stable. Patient has changed and is being discharged home in a wheelchair with valuables. 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 Health Concerns Infection Onset Date Last Indicated Resolved Time COVID-19 Rule-Out 02/04/2022 02/04/2022 Infection Onset Date Last Indicated Resolved Time COVID-19 Rule-Out 02/04/2022 02/04/2022 Reason for Referral Specialty Diagnoses / Procedures Referred By Marie spain Referred To Contact Malorie Hooper PA-C [address] [place] [address] Referral ID Status Reason Start Date Expiration Date V isits Requested Visits Authorized [id number] Pending Review 1 1 Specialty Diagnoses / Procedures Referred By Contac t Referred To Contact [facility] Diagnoses Cervicogenic headache Procedures CONSULT TO PHYSICAL THERAPY PHYSICAL THERAPY EVALUATION HIGH COMPLEX 45 MINS Malorie Hooper PA-C [address] [place] [address] [facility] [place] [address] Referral ID Status Reason Start Date Expiration Date Visits Requested Visits Authorized [id number] Pending Review Auto-Generat ed Referral 12/09/2022 12/09/2023 1 1 Additional Source Comments INFORMATION SOURCE (unrecogn ized section and content) DATE CREATED AUTHOR AUTHOR'S ORGANIZ ATION 12/19/2020 [facility] DATE CREATED AUTHOR AUTHOR'S ORGANIZ ATION 06/05/2023 [facility] DATE CREATED AUTHOR AUTHOR'S ORGANIZ ATION 10/29/2023 [facility] Source Comments (unrecognize d section and content) In the event this informatio n is protected by the Federal Confidentiality of Alcohol and Drug Abuse Patient Records regulations: The Federal rules restrict any use of the information to criminally investigate or prosecute any alcohol or drug abuse patient.[facility] the event this information is protected by the Federal Confidentiality of Alcohol and Drug Abuse Patient Records regulations: The Federal rules restrict any use of the information to criminally investigate or prosecute any alcohol or drug abuse patient.[facility] the event this information is protected by the Federal Confidentiality of Alcohol and Drug Abuse Patient Records regulations: The Federal rules restrict any use of the information to criminally investigate or prosecute any alcohol or drug abuse patient.[facility] the event this information is protected by the Federal Confidentiality of Alcohol and Drug Abuse Patient Records regulations: The Federal rules restrict any use of the information to criminally investigate or prosecute any alcohol or drug abuse patient.[facility] the event this information is protected by the Federal Confidentiality of Alcohol and Drug Abuse Patient Records regulations: The Federal rules restrict any use of the information to criminally investigate or prosecute any alcohol or drug abuse patient.[facility] the event this information is protected by the Federal Confidentiality of Alcohol and Drug Abuse Patient Records regulations: The Federal rules restrict any use of the information to criminally investigate or prosecute any alcohol or drug abuse patient.[facility] the event this information is protected by the Federal Confidentiality of Alcohol and Drug Abuse Patient Records regulations: The Federal rules restrict any use of the information to criminally investigate or prosecute any alcohol or drug abuse patient.[facility] the event this information is protected by the Federal Confidentiality of Alcohol and Drug Abuse Patient Records regulations: The Federal rules restrict any use of the information to criminally investigate or prosecute any alcohol or drug abuse patient.[facility] the event this information is protected by the Federal Confidentiality of Alcohol and Drug Abuse Patient Records regulations: The Federal rules restrict any use of the information to criminally investigate or prosecute any alcohol or drug abuse patient.[facility] the event this information is protected by the Federal Confidentiality of Alcohol and Drug Abuse Patient Records regulations: The Federal rules restrict any use of the information to criminally investigate or prosecute any alcohol or drug abuse patient.[facility] the event this information is protected by the Federal Confidentiality of Alcohol and Drug Abuse Patient Records regulations: The Federal rules restrict any use of the information to criminally investigate or prosecute any alcohol or drug abuse patient.[facility] the event this information is protected by the Federal Confidentiality of Alcohol and Drug Abuse Patient Records regulations: The Federal rules restrict any use of the information to criminally investigate or prosecute any alcohol or drug abuse patient.[facility] the event this information is protected by the Federal Confidentiality of Alcohol and Drug Abuse Patient Records regulations: The Federal rules restrict any use of the information to criminally investigate or prosecute any alcohol or drug abuse patient.[facility] the event this information is protected by the Federal Confidentiality of Alcohol and Drug Abuse Patient Records regulations: The Federal rules restrict any use of the information to criminally investigate or prosecute any alcohol or drug abuse patient.[facility] the event this information is protected by the Federal Confidentiality of Alcohol and Drug Abuse Patient Records regulations: The Federal rules restrict any use of the information to criminally investigate or prosecute any alcohol or drug abuse patient.[facility] the event this information is protected by the Federal Confidentiality of Alcohol and Drug Abuse Patient Records regulations: The Federal rules restrict any use of the information to criminally investigate or prosecute any alcohol or drug abuse patient.[facility] the event this information is protected by the Federal Confidentiality of Alcohol and Drug Abuse Patient Records regulations: The Federal rules restrict any use of the information to criminally investigate or prosecute any alcohol or drug abuse patient.[facility] the event this information is protected by the Federal Confidentiality of Alcohol and Drug Abuse Patient Records regulations: The Federal rules restrict any use of the information to criminally investigate or prosecute any alcohol or drug abuse patient.[facility] the event this information is protected by the Federal Confidentiality of Alcohol and Drug Abuse Patient Records regulations: The Federal rules restrict any use of the information to criminally investigate or prosecute any alcohol or drug abuse patient.[facility] Care Teams (unrecognized sec tion and content) Clinical Trials Manager Relationship Specialty Start Date End Date Giovany Mayer, DEBEADER.MANAGER DECISION SUPPORT [address] [place] [address] PCP - General Family Practice 01/19/20 Clinical Trials Manager Relationship Specialty Start Date End Date Giovany Mayer, DEBEADER.MANAGER DECISION SUPPORT [address] [place] [address] PCP - General Family Practice 01/19/20 Clinical Trials Manager Relationship Specialty Start Date End Date Giovany Mayer, DEBEADER.MANAGER DECISION SUPPORT [address] [place] [address] PCP - General Family Practice 01/19/20 Clinical Trials Manager Relationship Specialty Start Date End Date Giovany Mayer, DEBEADER.MANAGER DECISION SUPPORT [address] [place] [address] PCP - General Family Practice 01/19/20 Clinical Trials Manager Relationship Specialty Start Date End Date Giovany Mayer, DEBEADER.MANAGER DECISION SUPPORT [address] [place] [address] PCP - General Family Practice 01/19/20 Clinical Trials Manager Relationship Specialty Start Date End Date Giovany Mayer, DEBEADER.MANAGER DECISION SUPPORT [address] [place] [address] PCP - General Family Practice 01/19/20 Clinical Trials Manager Relationship Specialty Start Date End Date Giovany Mayer, DEBEADER.MANAGER DECISION SUPPORT [address] [place] [address] PCP - General Family Medicine 01/19/20 Clinical Trials Manager Relationship Specialty Start Date End Date Giovany Mayer, DEBEADER.MANAGER DECISION SUPPORT [address] [place] [address] PCP - General Family Medicine 01/19/20 Clinical Trials Manager Relationship Specialty Start Date End Date Giovany Mayer, DEBEADER.MANAGER DECISION SUPPORT [address] [place] [address] PCP - General Family Medicine 01/19/20 Clinical Trials Manager Relationship Specialty Start Date End Date Giovany Mayer, DEBEADER.MANAGER DECISION SUPPORT [address] [place] [address] PCP - General Family Medicine 01/19/20 Clinical Trials Manager Relationship Specialty Start Date End Date Giovany Mayer, DEBEADER.MANAGER DECISION SUPPORT [address] [place] [address] PCP - General Family Medicine 01/19/20 Clinical Trials Manager Relationship Specialty Start Date End Date Giovany Mayer, DEBEADER.MANAGER DECISION SUPPORT [address] [place] [address] PCP - General Family Medicine 01/19/20 Clinical Trials Manager Relationship Specialty Start Date End Date Giovany Mayer, DEBEADER.MANAGER DECISION SUPPORT [address] [place] [address] PCP - General Family Medicine 01/19/20 Clinical Trials Manager Relationship Specialty Start Date End Date Giovany Mayer [address] [place] [address] [place], [place] [address] PCP - General 09/17/20 Clinical Trials Manager Relationship Specialty Start Date End Date InocencioYadyGiovany, DEBEADER.MANAGER DECISION SUPPORT [address] [place], [place] [address] PCP - General Family Medicine 01/19/20 Clinical Trials Manager Relationship Specialty Start Date End Date Inocencio, Giovany [address] [place], [place] [id number] PCP - General 09/17/20 Clinical Trials Manager Relationship Specialty Start Date End Date Inocencio, Giovany [address] [place], [place] [id number] PCP - General 09/17/20 Clinical Trials Manager Relationship Specialty Start Date End Date Inocencio Giovany, DEBEADER.MANAGER DECISION SUPPORT [address] [place], [place] [address] PCP - General Family Medicine 01/19/20 Clinical Trials Manager Relationship Specialty Start Date End Date Inocencio, Giovany [address] [place], [place] [id number] PCP - General 09/17/20 Clinical Trials Manager Relationship Specialty Start Date End Date Inocencio Giovany, DEBEADER.MANAGER DECISION SUPPORT [address] [place], [place] [address] PCP - General Family Medicine 01/19/20 Clinical Trials Manager Relationship Specialty Start Date End Date Inocencio, Giovany, DEBEADER.MANAGER DECISION SUPPORT [address] [place], [place] [id number] PCP - General Family Medicine 01/19/20 Reason for Visit (unrecogniz ed section and content) Reason Comments Radiology Mammogram Specialty Diagnoses / Procedures Referred By Contac t Referred To Contact [facility] Diagnoses Mass of upper inner quadrant of left breast Procedures WALI DIAGNOSTIC LT DIAGNOSTIC MAMMOGRAPHY COMPUTER-AIDED DETCJ [facility] Stephania Eid, DEBEADER.MANAGER DECISION SUPPORT [address] [place] [address] [facility] [address] [place] [address] Referral ID Status Reason Start Date Expiration Date V isits Requested Visits Authorized [id number] Closed Auto-Generate d Referral 02/10/2022 03/12/2023 1 1 Reason Comments Radiology US Specialty Diagnoses / Procedures Referred By Contac t Referred To Contact [facility] Diagnoses Mass of upper inner quadrant of left breast Procedures US BREAST LTD LT US BREAST UNI REAL TIME WITH IMAGE LIMITED Stephania Eid, DEBEADER.MANAGER DECISION SUPPORT [address] [place] [address] [facility] [address] [place] [address] Referral ID Status Reason Start Date Expiration Date V isits Requested Visits Authorized [id number] Closed Auto-Generate d Referral 02/10/2022 03/12/2023 1 1 Reason Comments Orders Reason Comments Physical Reason Comments Anxiety Specialty Diagnoses / Procedures Referred By Contac t Referred To Contact NEUROLOGY Diagnoses headache Procedures headache Giovany Mayer, DEBEADER.MANAGER DECISION SUPPORT [address] [place] [address] [facility] [address] [place] [address] Referral ID Status Reason Start Date Expiration Date V isits Requested Visits Authorized [id number] Closed OON/Self Pay Override Patient Cleared - INN Insurance Found 12/06/2022 06/04/2023 1 1 Reason Comments medication followup Reason Onset Date Comments Well Woman Gardasil Injection 01/16/2023 Reason Comments Refill Request Reason Onset Date Comments Refill Request 04/25/2023 Reason Comments Follow Up 3 month follow up fo r headaches Specialty Diagnoses / Procedures Referred By Contac t Referred To Contact NEUROLOGY Diagnoses headache Procedures headache Giovany Mayer, DEBEADER.MANAGER DECISION SUPPORT [address] [place] [address] [facility] [address] [place] [address] Reason Comments Surgical Consult Breast augmentation with implants Specialty Diagnoses / Procedures Referred By Marie spain Referred To Contact Diagnoses Prominent ear Prominent ear [Q17.5] Procedures MN OTOPLASTY PROTRUDING EAR W/WO SIZE RDCTJ BILATERAL OTOPLASTY Scott Masters MD [address] [place] [address] [address] [facility] [place] [address] Referral ID Status Reason Start Date Expiration Date Visits Re quested Visits Authorized [id number] 1 1 Reason Comments Post-op otoplasty Reason Comments New Patient Asthma Specialty Diagnoses / Procedures Referred By Marie spain Referred To Contact Pulmonary and Critical Care Medicine / PULMONARY MEDICINE Diagnoses New patient Procedures OFFICE/OUTPATIENT NEW HIGH MDM 60-74 MINUTES RI NEW ASTHMA Self Sandi Grider MD [address] [place] [address] Referral ID Status Reason Start Date Expiration Date Visits Re quested Visits Authorized [id number] Closed 05/29/2023 10/18/2023 1 1 Reason Onset Date Comments Refill Request 07/13/2023 Reason Comments PT Eval Specialty Diagnoses / Procedures Referred By Marie spain Referred To Contact [facility] Diagnoses Cervicogenic headache Procedures CONSULT TO PHYSICAL THERAPY PHYSICAL THERAPY EVALUATION HIGH COMPLEX 45 MINS Malorie Hooper PA-C [address] [place] [address] [facility] [place] [address] [place] [address] Referral ID Status Reason Start Date Expiration Date Visits Requested Visits Authorized [id number] Authorized Auto-Generat ed Referral OON/Self Pay Override 10/19/2022 10/18/2023 99 99 Scheduled Active and Recently Administ ered Medications (unrecognized section and content) Continuous Medication Order 05/26/2023 05/27/2023 05/28/2023 lactated Ringer's (LR) infusion 50 mL/hr, IntraVENous, Continuous, Starting on Domi 05/28/23 at 0945, Preprocedure, Upon admission to sameday - please start iv if patient does not have iv access. Use 500ml NS for patients on dialysis. 0959 (New Bag - Prov ider: Dariela Raza RN)1259 (Paused - Provider: HERNANDEZ Nagel CRNA - Comment: Switch to gravity)1300 (New Bag - Provider: HERNANDEZ Nagel CRNA)1305 (Canceled Entry - Provider: HERNANDEZ Nagel CRNA)1609 (New Bag - Provider: HERNANDEZ Nagel CRNA)1645 (Stopped - Provider: HERNANDEZ Nagel CRNA) PRN Medication Order 05/26/2023 05/27/2023 05/28/2023 ALPRAZolam (Xanax) disintegrating tablet 0.25 mg 0.25 mg, Oral, PRN, anxiety, Starting on Domi 05/28/23 at 0940, For 1 dose, Preprocedure, Using dry hands, place tablet on top of tongue and allow to disintegrate. Administration with water is not necessary. bacitracin ointment (CANCELED) As needed, Starting on Domi 05/28/23 at 1602, Intraprocedure 1602 (Given - Provid er: Jacob Garcia MD) bupivacaine-EPINEPHrine PF (Marcaine w/EPI) 0.25% -[id number] injection (CANCELED) As needed, Starting on Domi 05/28/23 at 1354, Intraprocedure 1354 (Given - Provid er: Jacob Garcia MD)1517 (Given - Provider: Jacob Garcia MD) ondansetron (Zofran) injection 4 mg(Linked Group 1) 4 mg, IntraVENous, Every 6 hours PRN, nausea, vomiting, Starting on Domi 05/28/23 at 0940, Preprocedure, 1st Line. Give IV if patient is unable to take orally. If inadequate response within 60 minutes, proceed to next-line agent or contact provider if no further options ordered. ondansetron ODT (Zofran-ODT) disintegrating tablet 4 mg(Linked Group 1) 4 mg, Oral, Every 8 hours PRN, nausea, vomiting, Starting on Domi 05/28/23 at 0940, Preprocedure, 1st Line. If inadequate response within 60 minutes, proceed to next-line agent or contact provider if no further options ordered. Patient should allow tablet to dissolve on tongue. Do not remove from blister pack until just before administering. sodium chloride 0.9 % infusion 5-250 mL/hr, IntraVENous, PRN, if patient receiving piggyback infusions and maintenance fluids are not ordered OR KVO fluids to protect IV site / prevent frequent line interruptions/ long duration, Starting on Domi 05/28/23 at 0940, Preprocedure, For piggyback infusion, administer at same rate as piggyback for a total of 25 mL. Enter 25 mL into dose field and piggyback rate into rate field of order. If piggyback is infusing at a rate less than 100 mL/hr, enter 25 mL into dose field and 100 mL/hr into rate field of order. For KVO fluids, enter rate of 20 mL/hr or less into rate field of order. sodium chloride 0.9 % infusion 5-250 mL/hr, IntraVENous, PRN, if patient receiving piggyback infusions and maintenance fluids are not ordered OR KVO fluids to protect IV site / prevent frequent line interruptions / long duration, Starting on Domi 05/28/23 at 0940, Preprocedure, For piggyback infusion, administer at same rate as piggyback for a total of 25 mL. Enter 25 mL into dose field and piggyback rate into rate field of order. If piggyback is infusing at a rate less than 100 mL/hr, enter 25 mL into dose field and 100 mL/hr into rate field of order. For KVO fluids, enter rate of 20 mL/hr or less into rate field of order. sodium chloride 0.9 % irrigation solution (CANCELED) As needed, Starting on Domi 05/28/23 at 1354, Intraprocedure 1354 (Given - Provid er: Jacob Garcia MD) sodium chloride 0.9% (NS) flush 10 mL 10 mL, IntraVENous, PRN, line care, Starting on Domi 05/28/23 at 0940, Preprocedure, After every IV line use sodium chloride 0.9% (NS) flush 5-40 mL 5-40 mL, IntraVENous, PRN, line care, After every IV line use, Starting on Doim 05/28/23 at 0940, Preprocedure, For Line Patency: Peripheral IV = 5 mL; Midline or Central Line = 10 mL/lumen. If following IV push medication, administer flush at same rate as the IV push. Flush volume is determined by type of infusion therapy being given. For non-viscous solutions use: Peripheral IV = 5 mL Midline or Central Line = 10 mL/lumen For viscous solutions (i.e. blood components, parenteral nutrition, contrast media, or after obtaining blood sample) use: Peripheral IV = 10 mL Midline or Central Line = 20 mL/lumen Xeroform Petrolat Gauze 1 x8 pad (CANCELED) As needed, Starting on Domi 05/28/23 at 1355, Intraprocedure 1355 (Given - Provid er: Jacob Garcia MD - Comment: placed in ears prior to prep, removed at end of case)1453 (Given - Provider: Jacob Garcia MD)1625 (Given - Provider: Jacob Garcia MD) Linked Groups Order Group 1: ondansetron ODT (Zofran-ODT) disintegrating tablet 4 mgJump to med 4 mg, Oral, Every 8 hours PRN, nausea, vomiting, Starting on Domi 05/28/23 at 0940, Preprocedure
1st Line. If inadequate response within 60 minutes, proceed to next-line agent or contact provider if no further options ordered. Patient should allow tablet to dissolve on tongue. Do not remove from blister pack until just before administering.
Or ondansetron (Zofran) injection 4 mgJump to med 4 mg, IntraVENous, Every 6 hours PRN, nausea, vomiting, Starting on Domi 05/28/23 at 0940, Preprocedure
1st Line. Give IV if patient is unable to take orally. If inadequate response within 60 minutes, proceed to next-line agent or contact provider if no further options ordered.
FOR RECORDS PERTAINING TO PATIENTS WHO ARE OR HAVE BEEN ENROLLED IN A CHEMICAL DEPENDENCY/SUBSTANCEABUSE PROGRAM, SOME INFORMATION MAY BE OMITTED. This clinical summary was aggregated from multiple sources. Caution should be exercised in using it in the provision of clinical care. This summary normalizes information from multiple sources, and as a consequence, information in this document may materially change the coding, format and clinical context of patient data. In addition, data may be omitted in some cases. CLINICAL DECISIONS SHOULD BE BASED ON THE PRIMARY CLINICAL RECORDS. [employer] [facility]. provides no warranty or guarantee of the accuracy or completeness of information in this document.
[2023-10-30 06:37] VITALS: BP 103/72; PULSE 76; RESP 16; TEMP 37.2; O2SAT 98; BMI 24.7
[2023-10-30 06:38] LABS: Internal QC Validated? YES +Cl - CLEAR BKGD; Pregnancy, Urine Negative Negative
[2023-10-30] MEDS: Scopolamine 1mg/72hr Patch 1 PATCH TD (07:05)
[2023-10-30] MEDS: Acetaminophen 500 MG Tablet 1000 MG PO (07:08)
[2023-10-30] MEDS: Lactated Ringers 1,000 ML 15 ML IV (07:08)
[2023-10-30 07:11] LABS: Hematocrit 40.5 % (37-47); Hemoglobin 13.5 g/dL (12.0-15.0); Mean Corp Hgb Conc 33.3 g/dL (32-36); Mean Corpuscular Hgb 29.6 pg (27.0-32.0); Mean Corpuscular Volume 88.8 fL (81-99); Mean Platelet Vol. 9.7 fl (6.2-12.0); Platelet Count 216 K/mm3 (150-450); RBC Distribution Width CV 12.7 % (11.6-14.6); RBC Distribution Width SD 41.2 fl (35.1-43.9); Red Blood Count 4.56 M/mm3 (4.2-5.4); White Blood Count 6.4 K/mm3 (4.4-11.0)
--- NOTE | 2023-10-30 07:32 | PCM.HP.BLA ---
History and Physical Date of Admission: 10/30/23 33 female for laparoscopic bilateral salpingectomy for sterilization. Past medical history significant for anxiety, Pap smear, asthma, eczema Past surgical history significant for laparoscopic appendectomy, vein surgery of the right leg, LEEP Medication list reviewed Allergies: No known drug allergy Social history denies any tobacco alcohol or drug use Review of systems: Patient denies any chest pain shortness of breath cough fevers chills she is not on steroids antibiotics or blood thinners. She denies any prolonged bleeding history of easy bruising. Physical exam general: Awake alert no acute distress, skin warm dry and intact lungs clear to station bilateral heart S1-S2 regular rate and rhythm Assessment and plan sterilization request Response alternatives and personnel involved with plan laparoscopic bilateral salpingectomy were discussed with the patient, her questions were answered to her satisfaction she desires to proceed she understands permanent irreversible and risk of failure and regret
[2023-10-30] MEDS: Bupivacaine Mpf 0.5% 30 ML VIAL (07:59)
--- NOTE | 2023-10-30 08:20 | DCINST_ITS ---
Discharge Instructions Diet Discharge Diet: No restrictions Activity Return to work on:: 11/02/23 May shower in (days): 1 May resume sexual activity in: 1 week Dressing / Incision Call your doctor if your incision/area has: Sudden Increased Bleeding and Foul Smelling Discharge Call your doctor if you observe: Fever of 101 or Higher Cleanse incision/area with: Soap & Water (Your incisions have skin glue and it can get wet. Leave on until it falls off or at lest 10 days) Follow Up Care Please Follow Up With: Karen Aguilera MD When: You do not need a postop appointment. Call [phone] or send a e-[employer] message with questions or concerns Test Results: Test results from this visit will be discussed in further detail at your follow- up appointment, if applicable. Discharge Plan Admission Primary Reason for Your Visit: Tubal sterilization Attending Provider: Karen Aguilera Primary Care Provider: Payton Mayer NP Discharge Orders/Prescriptions Prescriptions: New ibuprofen [ibuprofen] 600 MG tablet 600 mg PO Q6H PRN (Reason: Pain) Qty: 30 1RF No Action multivitamin Tablet 1 tab PO DAILY norgestimate-ethinyl estradiol 0.18/0.215/0.25 mg-25 mcg tablet 1 tablet PO DAILY Patient Comments: take 1 tablet by mouth once daily Nurtec ODT 75 mg tablet,disintegrating 75 mg PO ONCE PRN (Reason: migraine headache) Rx Instructions: as a single dose cholecalciferol (vitamin D3) 50 mcg (2,000 unit) capsule 50 mcg PO DAILY vitamin B complex [B Complex-Vitamin B12] Tablet 1 tab PO DAILY duloxetine [Cymbalta] 20 mg capsule,delayed release(DR/EC) 20 mg PO DAILY ascorbic acid (vitamin C) 500 mg capsule 500 mg PO DAILY alprazolam 0.25 mg tablet 0.25 mg PO BID PRN (Reason: anxiety) Patient Comments: TAKE 1 TABLET BY MOUTH 2 TIMES A DAY NEEDED. to last 30 days albuterol sulfate [ProAir HFA] 90 mcg/actuation HFA aerosol inhaler 2 inh INHALATION Q6H PRN (Reason: shortness of breath or wheezing) Referrals / Follow Up: Payton Mayer NP, [employer]ITER[employer] [Primary Care Provider] - Disposition Disposition (needs filled in before D/C Order can be placed): Home, Self Care
--- NOTE | 2023-10-30 08:21 | PCM.OPRPT ---
Problems Associated Problem List Diagnoses (1) Sterilization: Report of Operation Date of Procedure: 10/30/23 Pre-Operative Diagnosis: sterilization request Post-Operative Diagnosis: same Surgery/Procedure Performed:: Laparoscopic bilateral salpingectomy Description of Surgical Findings:: normal cervix, uterus, tubes and ovaries Surgeon: Karen Aguilera insurance office manager: Jaren fernandez student Type of Anesthesia: General Anesthesiologist: Wayne Davila Special Medications: none Specimen's removed: bialteral fallopian tubes Drains: none Estimated Blood Loss (mL): 5 Fluids Replaced: 1000 cc Description of Procedure: The patient was taken to the operating room where she was prepped and draped in the dorsolithotomy position. A weighted speculum was placed in the vagina and the anterior lip of the cervix was grasped with a tenaculum. The Ana uterine manipulator was placed and the remainder of the instruments were removed from the vagina. Attention was turned to the abdomen. All port sites were infiltrated with 0.5% Marcaine before skin incisions were made. A 5 mm [intraumbilical] incision was made. The anterior abdominal wall was tented up with 2 towel clamps while a 5 mm blade less trocar and sleeve were [directly inserted]. Intraperitoneal placement was confirmed with the laparoscope. The pneumoperitoneum was created and the underlying abdominal contents were intact. The patient was placed in Trendelenburg. Right and left lower quadrant ports were placed under direct visualization lateral to the inferior epigastric vessels. The bowel was swept away and the above findings were noted. The Enseal device was used to clamp seal and transect the antimesenteric portions of the right tube to the cornual insertion of the uterus. The tube was amputated from the uterus and the pedicles were all confirmed to be hemostatic. The same procedure was performed on the contralateral side. The specimens were brought out through a 5 mm port. The pedicles were again examined and found to be hemostatic. The lateral ports were removed under direct visualization and no active bleeding was noted. The pneumoperitoneum was released. The skin incisions were closed with Monocryl suture in a subcuticular fashion and skin glue. The vaginal instruments were removed and the vaginal sweep was completed by me. The procedure was performed by me with assistance. All sponge and needle counts were correct and the patient was taken to the recovery room in stable condition. Grafts/Implants Used: none Procedure Start Time: 07:59 Procedure Stop Time: 08:23 Complications none Admit VTE Documentation VTE Present on Admission: No VTE Mechan Device Prophylaxis: SCD's VTE Pharm Prophylaxis ordered?: No Reason prophylaxis not ordered:: Procedure Not Indicated
[2023-10-30 08:33] VITALS: BP 103/72; BP 111/76; PULSE 102; RESP 16; TEMP 36.6; O2SAT 94
[2023-10-30 08:45] VITALS: BP 103/64; BP 103/72; PULSE 90; RESP 16; O2SAT 99
[2023-10-30 08:49] VITALS: BP 103/62; BP 103/72; PULSE 78; RESP 16; TEMP 36.3; O2SAT 100
[2023-10-30 09:48] VITALS: BP 100/66; BP 103/72; PULSE 68; RESP 16; TEMP 36.7; O2SAT 100
== END 2023-10-30 09:55 | disposition home or self-care (01) ==
LOC: SDC 05:53 → AC 05:55
PROVIDERS: Anesthesiology; PCP Nurse Practitioner Family; Referring Provider Obstetrics & Gynecology; Visit Provider Obstetrics & Gynecology
PROC: (CPT 58661; principal; 2023-10-30 07:15)
DX: Z30.2 Encounter for sterilization (principal); Z86.16 Personal history of COVID-19; J45.990 Exercise induced bronchospasm; G43.909 Migraine, unspecified, not intractable, without status migrainosus; Z90.49 Acquired absence of other specified parts of digestive tract
CPT/HCPCS: 58661; 00840; 81025; 85027; 88302; J7120; C1760; J2405

== ENCOUNTER 2025-06-06 12:54 | Emergency (ER) | payer OTHER, SELFPAY ==
[2025-06-06 12:56] VITALS: BP 110/81; PULSE 78; RESP 10; TEMP 36.9; O2SAT 100; BMI 25.5
[2025-06-06 13:01] VITALS: BP 110/81; BP 110/86; BP 113/85; PULSE 111; PULSE 78; PULSE 94
--- NOTE | 2025-06-06 13:37 | EKG12_ITS ---
Test Reason : SYNCOPE Blood Pressure : */* mmHG Vent. Rate : 83 BPM Atrial Rate : 83 BPM P-R Int : 120 ms QRS Dur : 88 ms QT Int : 350 ms P-R-T Axes : 19 20 -9 degrees QTcB Int : 411 ms Normal sinus rhythm Normal ECG Confirmed by JEANNE COLINDRES, TEA ([id number]), continuity editor CHARLES LUNA ([id number]) on 06/07/2025 9:38:02 AM Referred By: Confirmed By: TEA ANGEL MD
--- NOTE | 2025-06-06 13:38 | EX.ED.DYSGE1 ---
HPI History of Present Illness Chief Complaint: Syncope Detail of Chief Complaint: Near syncope. No LOC. Informant: patient Onset/Context/Timing Onset: Today Context: Sudden Onset Timing: Intermittent Current Severity: Mild Maximum Severity: Mild Narrative Narrative: 34-year-old female history of prior migraine headaches none recently, prior appendectomy and tubal ligation. Today gave blood just felt kind of weak prior to it when she was driving home she felt she might pass out. Never lost conscious. No prior history of a syncopal or near syncopal event. She denies recent illness. She has had no nausea, vomiting or diarrhea. No fever or chills. No black or bloody stools. No palpitations. Currently she is feeling better but still feels just kind of weak. Prior similar symptoms: No Recent Illness/Hospitalization: No PFSH PFSH Medical History Wears contact lenses Depression Migraine headache Non-smoker Cardiology follow-up encounter PONV (postoperative nausea and vomiting) Migraine aura without headache SOB (shortness of breath) Anxiety Palpitations Dyspnea on exertion Exercise-induced asthma Home Medications ?Medication ?Instructions ?Recorded ?Last Taken ?Type multivitamin 1 tab PO DAILY 05/15/20 Unknown History ascorbic acid (vitamin C) 500 mg 500 mg PO DAILY 02/05/23 Unknown History capsule cholecalciferol (vitamin D3) 50 50 mcg PO DAILY 02/05/23 Unknown History mcg (2,000 unit) capsule duloxetine 20 mg capsule,delayed 20 mg PO DAILY 02/05/23 10/30/23 History release (Cymbalta) vitamin B complex (B 1 tab PO DAILY 02/05/23 Unknown History Complex-Vitamin B12 tablet) albuterol sulfate 90 mcg/actuation 2 inh inhalation Q6H PRN shortness 10/22/23 Unknown History aerosol inhaler (ProAir HFA) of breath or wheezing Allergy/AdvReac Type Severity Reaction Status Date / Time No Known Allergies Allergy Verified 06/06/25 12:55 Family History Father Negative for coronary disease Mother Negative for coronary disease Surgical History History of ear surgery History of varicose vein stripping H/O LEEP History of appendectomy (~2012) Social History Smoking Status: Never smoker Electronic Cigarette Use: not used second hand exposure: No alcohol intake: current alcohol intake frequency: holidays/special occasions only Alcohol type: beer substance use type: does not use ROS ROS ED ROS Narrative No recent illness. Constitutional Constitutional ED: Denies chills or fever(s) Eyes Eyes: Denies blurry vision ENT ENT ED: Denies ear pain Cardiovascular Cardiovascular: Denies chest pain Respiratory/Chest Respiratory/Chest: Denies cough or dyspnea Gastrointestinal Gastrointestinal: Denies abdominal pain Genitourinary Genitourinary ED: Denies dysuria or hematuria Musculoskeletal Musculoskeletal: Denies arthralgias or back pain Integumentary Denies abscess Neurologic Neurologic: Denies headache(s) Psychiatric Psychiatric: Denies anxiety or depression Endocrine Endocrinology: Denies cold intolerance Hematologic/Lymphatic Hematologic/Lymphatic: Reports none Allergic/Immunologic Allergic/Immunologic ED: Denies mouth swelling, tongue swelling or urticaria EXAM Physical Exam Narrative Exam Narrative: Well-appearing 33-year-old female. Vital signs stable afebrile. She does not look septic toxic she is in no distress. Her pulse ox 100% on room air. H EENT exam pupils round react light. Moist mucous membranes. No trauma. No facial droop. Normal speech. Neck nontender no JVD. No lymphadenopathy. Back nontender. Lungs clear to auscultation bilaterally. Heart regular rhythm no murmur rate about 80. Chest wall ribs nontender. Abdomen soft nontender. Patient moving all 4 extremities. 5/5 special events assistant strength. Equal symmetrical radial pulses. Dorsi plantarflexion intact. Calves nontender no edema no cords. Neurologically she is awake alert. Answering questions following commands. NIH 0. Benign exam. Significant other at bedside. Const Vital Signs: 06/06/25 12:56 06/06/25 12:56 06/06/25 13:01 Temperature 98.5 F Temperature Source Oral Pulse Rate 78 Pulse Rate [Lying] 78 Pulse Rate [Sitting (for 1 minute prior to obtaining)] 94 Pulse Rate [Standing (for 1 minute prior to obtaining)] 111 H Respiratory Rate 10 L Respiratory Effort Normal Respiratory Pattern Normal Blood Pressure 110/81 H Blood Pressure [Lying] 110/81 H Blood Pressure [Sitting (for 1 minute prior to obtaining)] 110/86 H Blood Pressure [Standing (for 1 minute prior to obtaining)] 113/85 H Blood Pressure Mean 90 Blood Pressure Mean [Lying] 90 Blood Pressure Mean [Sitting (for 1 minute prior to obtaining)] 94 Blood Pressure Mean [Standing (for 1 minute prior to obtaining)] 94 Pulse Ox 100 Oxygen Delivery Method Room Air 06/06/25 14:22 06/06/25 15:11 Temperature Temperature Source Pulse Rate 81 87 Pulse Rate [Lying] Pulse Rate [Sitting (for 1 minute prior to obtaining)] Pulse Rate [Standing (for 1 minute prior to obtaining)] Respiratory Rate 25 H 19 H Respiratory Effort Respiratory Pattern Blood Pressure Blood Pressure [Lying] Blood Pressure [Sitting (for 1 minute prior to obtaining)] Blood Pressure [Standing (for 1 minute prior to obtaining)] Blood Pressure Mean Blood Pressure Mean [Lying] Blood Pressure Mean [Sitting (for 1 minute prior to obtaining)] Blood Pressure Mean [Standing (for 1 minute prior to obtaining)] Pulse Ox 100 96 Oxygen Delivery Method Positive well nourished and well developed; Negative for obese, cachectic, contractures or unkempt General Appearance ED: well developed and NAD; Negative for unkempt, cachectic, contractures, cyanotic or diaphoretic Nutritional Appearance: Negative for cachectic or obese HEENT Reports moist mucous membranes Negative for trauma or tenderness Eyes PERRL and EOMs intact bilaterally General Eye ED: Negative for pale conjunctiva Neck no lymphadenopathy, supple and no JVD Chest Wall inspection of chest normal and palpation of chest normal Resp normal respiratory effort and clear to auscultation bilaterally Effort and Inspection: Negative for retractions Auscultation: Negative for rales, rhonchi or wheezes Cardio regular rate, regular rhythm, S1 normal heart sound, S2 normal heart sound and no murmurs GI normal to inspection, nondistended, normoactive bowel sounds, non-tender, non-distended and no masses Auscultation: normoactive bowel sounds Palpation: soft; Negative for tender, guarding or rebound tenderness present Back/Spine no CVA tenderness General Back: Negative for CVA tenderness Cervical Spine: Negative for cervical spine tenderness Thoracic Spine / Upper Back: Negative for thoracic spinal tenderness or paraspinal muscle tenderness Lumbar Spine / Lower Back: Negative for lumbar spinal tenderness Extremity normal to inspection General Extremety ED: Negative for edema or tenderness General Extremity: Negative for edema Neuro oriented x3 and CN's II-XII intact bilaterally Sensorium / Orientation: alert Motor Exam: strength 5/5 throughout Psych mental status grossly normal Appearance: Negative for unkempt Attitude: No agitated Mood & Affect: Negative for depressed, anxious or tearful Skin no rashes or lesions noted, no wounds and skin turgor normal General Skin Exam: elasticity normal; Negative for jaundice Lesions: No lesion noted Rashes: No rashes noted Trauma: Negative for abrasion Wounds: Negative for wounds noted MDM MDM MDM Narrative Medical decision making narrative: Healthy 34-year-old female here blood today that had a near syncopal episode when driving home. Currently her exam is benign. She will be treated liter normal saline screening labs and EKG will be obtained. I do not think she needs any imaging. She has a normal neurologic exam. Repeat exam patient is doing well around 3:14 PM. All of her test results. She will be discharged to home. Outpatient follow-up as needed. Return if worse. History & Record Review Discussion w/independent historian: Patient and Family Additional record(s) reviewed:: Prior inpatient record, Prior outpatient record, Prior ED visit and Prior labs Lab Data Attestation: I reviewed the patient's lab results. Lab results narrative: CBC shows a white count of 13. H&H 12.6 and 37.5 and that after she gave blood today. Platelets are 215. Chemistries are unremarkable. Gap 11. Normal BUN of 14 creatinine 0.7. Glucose 108. Labs: Laboratory Results - last 24 hr 06/06/25 13:50 WBC 13.0 H RBC 4.34 Hgb 12.6 Hct 37.5 MCV 86.4 MCH 29.0 MCHC 33.6 RDW Std Deviation 44.[address] of [address] 13.9 Plt Count 215 MPV 9.8 Sodium 137 Potassium 4.0 Chloride 102 Carbon Dioxide 23.8 Anion Gap 11 BUN 14 Creatinine 0.78 Estim Creat Clear Calc 103.48 Est GFR (MDRD) Non-Af 103 BUN/Creatinine Ratio 17.3 Glucose 108 H Calcium 9.5 Rhythm Strip Rhythm Strip: Sinus Rhythm Rate: 73 Ectopy: None EKG Initial EKG: Attestation: I personally reviewed and interpreted this EKG as follows: Interpretation: Sinus Rhythm and No Acute Injury Pattern Comments: Normal sinus rhythm rate of 73 no acute signs of NM nor ischemia. No dysrhythmia. Discharge Plan Triage Chief Complaint: Syncope ED Provider: Monty Dodd Dx/Rx/DC Orders Clinical Impression: Near syncope Instructions: ED Near-Fainting, Uncertain Cause Prescriptions: No Action multivitamin Tablet 1 tab PO DAILY cholecalciferol (vitamin D3) 50 mcg (2,000 unit) capsule 50 mcg PO DAILY vitamin B complex [B Complex-Vitamin B12] Tablet 1 tab PO DAILY duloxetine [Cymbalta] 20 mg capsule,delayed release(DR/EC) 20 mg PO DAILY ascorbic acid (vitamin C) 500 mg capsule 500 mg PO DAILY albuterol sulfate [ProAir HFA] 90 mcg/actuation HFA aerosol inhaler 2 inh INHALATION Q6H PRN (Reason: shortness of breath or wheezing) Primary Care Provider: Payton Mayer NP Referrals: Payton Mayer NP, [employer] SCRUBBER-[employer] [Primary Care Provider] - 3-5 Days if not improving Activity Restrictions/Additional Instructions: Your blood work and EKG look good. Your exam is normal. Nothing specifically wrong we can find at this time. Plenty of fluids and rest. Follow-up with your doctor if not improving. Print Language: Mauritian Disposition Disposition: Home, Self Care
[2025-06-06] MEDS: 0.9% Normal Saline (1000mL) 1,000 ML 1000 ML IV (13:57)
[2025-06-06 14:00] LABS: Hematocrit 37.5 % (37-47); Hemoglobin 12.6 g/dL (12.0-15.0); Mean Corp Hgb Conc 33.6 g/dL (32-36); Mean Corpuscular Volume 86.4 fL (81-99); Mean Platelet Vol. 9.8 fl (6.2-12.0); Platelet Count 215 K/mm3 (150-450); RBC Distribution Width CV 13.9 % (11.6-14.6); RBC Distribution Width SD 44.9 fl (35.1-43.9); Red Blood Count 4.34 M/mm3 (4.2-5.4); White Blood Count 13.0 K/mm3 (4.4-11.0)
[2025-06-06 14:22] VITALS: PULSE 81; RESP 25; O2SAT 100
[2025-06-06 15:09] LABS: Anion Gap 11 (5-15); BUN 14 mg/dL (4-19); BUN/Creat Ratio 17.3 RATIO (10-20); Calcium,Total 9.5 mg/dL (7.6-11.0); Carbon Dioxide 23.8 mmol/L (21.0-32.0); Chloride 102 mmol/L (98-108); Estimated Creatinine Clearance 103.48 ml/min (50-250); Glucose 108 mg/dL (70-99); Potassium 4.0 mmol/L (3.3-5.1)
[2025-06-06 15:11] VITALS: PULSE 87; RESP 19; O2SAT 96
[2025-06-06 15:17] VITALS: BP 110/81; PULSE 87; RESP 19; TEMP 36.9; O2SAT 96
== END 2025-06-06 15:20 | disposition home or self-care (01) ==
PROVIDERS: Emergency Provider Emergency Medicine; PCP Nurse Practitioner Family; Visit Provider Emergency Medicine
DX: R55 Syncope and collapse (principal); J45.990 Exercise induced bronchospasm; F32.A Depression, unspecified; Z79.899 Other long term (current) drug therapy
CPT/HCPCS: 80048; 85027; 93005; 96360; 99285; A4216